=== PATIENT | male | born 1985 | race Caucasian/White ===

== ENCOUNTER 2023-11-20 08:34 | Outpatient (OUT) | payer OTHER, SELFPAY ==
[2023-11-20 09:01] LABS: Basophils Absolute Auto 0.1 10^3/uL (0.0-0.1); Eosinophils Absolute Auto 0.1 10^3/uL (0.0-0.7); Hematocrit 46.7 % (42.0-54.0); Hemoglobin 15.4 g/dL (14.0-18.0); Immature Granulocytes Abs Auto 0.01 10^3/uL (0.00-0.03); Immature Granulocytes Pct Auto 0.2 % (0.0-0.5); Lymphocytes Absolute Auto 1.7 10^3/uL (1.2-3.8); Lymphocytes Percent Auto 32.9 % (20.5-60.0); Mean Corpuscular Hemoglobin 28.2 pg (25.9-34.0); Mean Corpuscular Volume 85.4 fL (80.0-94.0); Mean Platelet Volume 10.4 fL (9.5-13.5); Monocytes Absolute Auto 0.6 10^3/uL (0.3-0.8); Monocytes Percent Auto 12.2 % (1.7-12.0); Neutrophils Absolute Auto 2.8 10^3/uL (1.4-6.5); Neutrophils Percent Auto 52.7 % (43.0-75.0); Platelet Count 190 10^3/uL (150-450); Red Blood Count 5.47 10^6/uL (4.70-6.10); Red Cell Distribution Width 13.5 % (11.0-15.0); White Blood Count 5.2 10^3/uL (4.0-11.0)
[2023-11-20 09:37] LABS: Bilirubin Urine NEGATIVE (NEGATIVE); Blood Urine NEGATIVE (NEGATIVE); Clarity Urine CLEAR (CLEAR); Color Urine YELLOW (YELLOW); Glucose Urine UA NEGATIVE (NEGATIVE); Ketones Urine NEGATIVE (NEGATIVE); Leukocyte Esterase Urine NEGATIVE (NEGATIVE); Nitrite Urine NEGATIVE (NEGATIVE); Protein Urine NEGATIVE (NEG/TRACE); Specific Gravity Urine 1.025 (1.005-1.025); Urobilinogen Urine 0.2 EU/dL (0.2-1.0)
[2023-11-20 10:07] LABS: Alanine Aminotransferase 33 U/L (16-63); Albumin Globulin Ratio 1.1; Albumin Level 3.9 g/dL (3.4-5.0); Alkaline Phosphatase 68 U/L (46-116); Aspartate Amino Transferase 18 U/L (15-37); BUN Creatinine Ratio 16.8; Bilirubin Total 1.4 mg/dL (0.2-1.0); Calcium 9.5 mg/dL (8.5-10.1); Carbon Dioxide 28.1 mmol/L (21.0-32.0); Chloride 101 mmol/L (98-107); Chol HDL Ratio 4.2; Cholesterol 168 mg/dL (<=200); Estimated GFR (African America >60 (>=60); Estimated GFR (Non-African Ame >60 (>=60); Globulin 3.4 g/dL; Glucose 120 mg/dL (74-106); HDL Cholesterol 40 mg/dL (40-60); LDL Cholesterol Calculated 114.2 mg/dL; Potassium 4.1 mmol/L (3.5-5.1); Sodium 140 mmol/L (136-145); Total Protein 7.3 g/dL (6.4-8.2); Triglycerides 69 mg/dL (<=150); VLDL CHOLESTEROL 13.8 mg/dL
[2023-11-20 10:29] LABS: Estimated Average Glucose 134 mg/dL; Glycohemoglobin A1C 6.3 % (4.5-6.2)
== END 2023-11-20 08:35 | disposition home or self-care (01) ==
PROVIDERS: PCP Internal Medicine; Visit Provider Internal Medicine
DX: Z00.00 Encounter for general adult medical examination without abnormal findings (principal)
CPT/HCPCS: 36415; 80053; 80061; 81003; 83036; 85025

== ENCOUNTER 2024-01-03 06:28 | Outpatient (OUT) | payer OTHER, SELFPAY ==
[2024-01-03 06:43] LABS: Bilirubin Urine NEGATIVE (NEGATIVE); Blood Urine NEGATIVE (NEGATIVE); Clarity Urine CLEAR (CLEAR); Color Urine YELLOW (YELLOW); Glucose Urine UA NEGATIVE (NEGATIVE); Ketones Urine NEGATIVE (NEGATIVE); Leukocyte Esterase Urine NEGATIVE (NEGATIVE); Nitrite Urine NEGATIVE (NEGATIVE); Protein Urine NEGATIVE (NEG/TRACE); Specific Gravity Urine 1.025 (1.005-1.025)
[2024-01-03 08:17] LABS: Bacteria Urine NONE SEEN #/HPF (NONE SEEN); Cast Seen? NONE SEEN #/LPF (NONE SEEN); Crystals Seen? None Seen #/HPF (None Seen); Mucus Urine NONE SEEN (NONE SEEN); RBC Urine NONE SEEN #/HPF (0-2); Squamous Epithelial Cell Urine NONE SEEN #/LPF (NONE/RARE); Urine Culture Indicated ALREADY ORDERED; WBC Urine NONE SEEN #/HPF (NONE SEEN)
== END 2024-01-03 06:29 | disposition home or self-care (01) ==
LOC: LAB 06:29
PROVIDERS: PCP Internal Medicine; Visit Provider Internal Medicine
DX: N41.0 Acute prostatitis (principal)
CPT/HCPCS: 81001; 87086

== ENCOUNTER 2024-01-13 09:09 | Outpatient (OUT) | payer OTHER, SELFPAY ==
--- NOTE | 2024-01-13 09:11 | US_ITS ---
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 TECHNIQUE: Real-time ultrasound imaging of the kidneys and bladder. Findings: The right and left kidneys measure 12.1 and 11.9 cm. There is good corticomedullary differentiation bilaterally. No renal stones. Mild left pelviectasis. No focal mass or perinephric fluid collection. The bladder is unremarkable. Prevoid volume of 279 mL. The prostate measures 5.7 x 3.2 x 4.5 cm. US/US renal BI IMPRESSION: 1. Mild left pelviectasis may relate to normal variant, obstruction or reflux. Electronically authenticated by: MARYBEL BUENO Date: 01/13/2024 13:50
--- OUTSIDE RECORDS SUMMARY | 2024-01-13 09:19 | XMS_ITS | CCD ---
Author Organization [facility] Care Team Providers Care Selvage Machine Operator Name Role Phone HARMAN, DR GOINS Attending Unavailable HARMAN, DR GOINS Consulting Unavailable HARMAN, DR GOINS Primary Care Unavailable HARMAN, DR GOINS Admitting Unavailable Keaton Hammer Unavailable Allergies Allergy Classification Reported Allergen(s) Allergy Type Date of Onset Reaction(s) Facility (1 source) patient allergy list reviewed by nurse or physicia Propensity to adverse reactions Comment:Done [facility] Other Medications Current Medications Medication Drug Class(es) Dates Sig (Normalized) Sig (Original) flecainide acetate 100 mg oral tablet (5 sources) Antiarrhythmic Start: 11-11-2023 take 50 mg by mouth every twelve hours Flecainide Active 50 MG PO Every 12 hours November 11, 2023 12:00am take 0.5 tablet by m outh every twelve hours Flecainide Acetate 100 MG 0.5 tablet Ora lly every 12 hrs Active itraconazole 100 mg oral capsule (4 sources) Azole Antifungal Start: 11-11-2023 take 200 mg by mouth once daily Itraconazole Active 200 MG PO Daily November 11, 2023 12:00am Start: 03-21-2023 take 2 capsules by m outh every twenty-four hours Itraconazole 100 MG 2 capsules after meals Orally Once a day for 7 days Mar, Active ketoconazole 20 mg/ml medicated shampoo (5 sources) Azole Antifungal Start: 11-11-2023 Ketoconazole Active 1 APPLIC TOPICAL EVERY 2 WEEKS November 11, 2023 12:00am Ketoconazole 2 % as directed Externally twice weekly for 28 days Active Ketoconazole 2 % as directed Externally Active omeprazole 20 mg delayed release oral capsule (5 sources) Proton Pump Inhibitor Start: 11-11-2023 take 20 mg by mouth once daily Omeprazole Active 20 MG PO Daily November 11, 2023 12:00am take 1 capsule by mouth once onur ly Omeprazole 20 MG 1 capsule 30 minutes before morning meal Orally Once a day Active Semaglutide (1 source) Start: 12-11-2023 Semaglutide (O zempic) 0.25 mg or 0.5 mg (2 mg/3 mL) pen injector Active 0.25 MG SUBCUT every week 3 December 11, 2023 12:00am for 4 weeks triamcinolone acetonide 1 mg/ml topical cream (5 sources) Corticosteroid Start: 11-11-2023 Triamcinolone Acetonide Active 1 APPLIC TOPICAL Twice daily November 11, 2023 12:00am Start: 11-06-2022 Triamcinolone Acetonide 0.1 % 1 application Externally twice daily as needed for rash for 10 days Oct, Active Completed/Discontinued Medications Medication Drug Class(es) Dates Sig (Normalized) Sig (Original) doxycycline monohydrate 100 mg oral capsule (1 source) Tetracycline-class Drug Start: 12-02-2023 End: 12-11-2023 take 100 mg by mouth every twelve hours Doxycycline Monohydrate Discontinued 100 MG PO Every 12 hours 20 December 02, 2023 12:00am December 11, 2023 8:35am sulfamethoxazole 800 mg / trimethoprim 160 mg oral tablet (6 sources) Dihydrofolate Reductase Inhibitor Antibacterial, Sulfonamide Antimicrobial Start: 12-11-2023 End: 12-31-2023 take 1 tablet by mouth twice daily Sulfamethoxazole- Trimethoprim Discontinued 1 TAB PO Twice daily 56 December 11, 2023 12:00am December 31, 2023 11:03am Start: 11-12-2023 End: 12-02-2023 take 1 tablet by mouth twice daily Sulfamethoxazole-Trimethoprim Discontinu ed 1 TAB PO Twice daily 14 7 November 19, 2023 1:16pm December 02, 2023 1:32pm Problems Active Problems Problem Classification Problem Date Documented Da te Episodic/Chronic Acute bronchitis (1 source) Acute bronchitis; Translations: [Acute bronchitis due to other specified organisms] Episodic Allergic reactions (1 source) Irritant contact dermatitis due to detergents Episodic Anxiety disorders (9 sources) Generalized anxiety disorder; Translations: [Generalized anxiety disorder] Onset: 02-03-2018 11-11-2023 Chronic Cardiac dysrhythmias (9 sources) Paroxysmal atrial fibrillation; Translations: [Paroxysmal atrial fibrillation] Onset: 04-04-2014 11-11-2023 Chronic Diabetes mellitus without complication (11 sources) Impaired fasting glycemia; Translations: [Impaired fasting glucose] Onset: 12-09-2017 11-11-2023 Episodic Inflammatory conditions of male genital organs (5 sources) Acute prostatitis; Translations: [Acute prostatitis] 12-02-2023 Episodic Mycoses (8 sources) Pityriasis versicolor; Translations: [Pityriasis versicolor] Onset: 03-27-2016 Episodic Other gastrointestinal disorders (6 sources) Irritable bowel syndrome; Translations: [Irritable bowel syndrome without diarrhea] 11-11-2023 Chronic Other nutritional; endocrine; and metabolic disorders (3 sources) Morbid obesity; Translations: [Morbid (severe) obesity due to excess calories] Chronic Other nutritional; endocrine; and metabolic disorders (1 source) Body mass index 30+ - obesity; Translations: [Body mass index 36.0-36.9, adult] Onset: 11-24-2015 Chronic Other nutritional; endocrine; and metabolic disorders (1 source) Obese class II; Translations: [Body mass index (BMI) 35.0-35.9, adult] Onset: 10-27-2014 Chronic Other nutritional; endocrine; and metabolic disorders (2 sources) Obese class I; Translations: [Body mass index 34.0-34.9, adult] Onset: 10-27-2014 Chronic Other nutritional; endocrine; and metabolic disorders (1 source) Simple obesity ; Translations: [Other obesity due to excess calories] Onset: 10-27-2014 Chronic Other nutritional; endocrine; and metabolic disorders (4 sources) Obesity; Translations: [Obesity, unspecified] 11-12-2023 Chronic Other nutritional; endocrine; and metabolic disorders (3 sources) Obesity caused by energy imbalance; Translations: [Morbid (severe) obesity due to excess calories] 11-11-2023 Chronic Other nutritional; endocrine; and metabolic disorders (5 sources) Obesity, unspecified; Translations: [Obesity, unspecified] 11-12-2023 Chronic Other upper respiratory disease (4 sources) Allergic rhinitis; Translations: [Allergic rhinitis, unspecified] Onset: 01-10-2015 11-11-2023 Chronic Other upper respiratory infections (3 sources) Acute pharyngitis; Translations: [Acute pharyngitis due to other specified organisms] Onset: 01-10-2015 Episodic Unclassified (1 source) Vaccine product containing only acellular Bordetella pertussis and Clostridium tetani and Corynebacterium diphtheriae antigens (medicinal product); Translations: [Sgavarzdew-vwaymmw-r ertussis, combined [DTP] [DtaP]] Onset: 02-22-2014 Past or Other Problems Problem Classification Problem Date Documented Da te Episodic/Chronic Bacterial infection; unspecified site (1 source) Bacterial infectious disease; Translations: [Bacterial infection, unspecified, in conditions classified elsewhere and of unspecified site] Onset: 11-24-2015 Episodic Conditions associated with dizziness or vertigo (1 source) Dizziness and giddiness; Translations: [Dizziness and giddiness] Onset: 04-04-2014 Episodic Esophageal disorders (2 sources) Esophageal disorders; Translations: [Gastro-esophageal reflux disease with esophagitis, without bleeding] Malaise and fatigue (1 source) Malaise and fatigue; Translations: [Other malaise and fatigue] Onset: 10-27-2014 Episodic Nausea and vomiting (1 source) Nausea; Translations: [Nausea] Onset: 04-04-2014 Episodic Other connective tissue disease (1 source) Nontraumatic rupture of rotator cuff of left shoulder; Translations: [Unspecified rotator cuff tear or rupture of left shoulder, not specified as traumatic] Onset: 09-20-2013 Episodic Other lower respiratory disease (1 source) Dyspnea; Translations: [Dyspnea, unspecified] Onset: 04-04-2014 Episodic Spondylosis; intervertebral disc disorders; other back problems (4 sources) Nerve root disorder; Translations: [Radiculopathy, site unspecified] Onset: 09-20-2013 11-11-2023 Episodic Sprains and strains (1 source) Neck sprain; Translations: [Neck sprain and strain] Onset: 09-20-2013 Episodic Unclassified (1 source) Exposure to acute respiratory syndrome coronavirus 2; Translations: [Contact with and (suspected) exposure to COVID-19] Resolved: 10-28-2021 Urinary tract infections (1 source) Urethritis; Translations: [Other urethritis] Onset: 11-24-2015 Episodic Results Test Name Value Interpretation Reference Range Facility Automated urine specific gra vity by refractometryon 11-20-2023 Specific gravity Refractometry automated (U) [Rel density] 1.025 1.005-1.025 [facility] Basophils Auto (Bld) [#/Vol] on 11-20-2023 Basophils (Bld) [#/Vol] 0.1 10 3/uL 0.0-0.1 [facility] Basophils/100 WBC Auto (Bld) on 11-20-2023 Basophils/100 WBC (Bld) 1.0 % 0.2-2.0 [facility] Bilirubin Auto test strip (U ) [Mass/Vol]on 11-20-2023 Bilirubin (U) [Mass/Vol] Negative NEGATIVE [facility] Cholesterol in LDL Calc [Mas s/Vol]on 11-20-2023 Cholesterol in LDL [Mass/Vol] 114.2 mg/dL [facility] Comment on above: <100 mg/dl [id number] 0-129 mg/dl NEAR OR ABOVE [id number] mg/dl BORDERLINE [id number] mg/dl HIGH>190 mg/dl VERY HIGH Cholesterol in VLDL Calc [Ma ss/Vol]on 11-20-2023 Cholesterol in VLDL [Mass/Vol] 13.8 mg/dL [facility] Color Auto (U)on 11-20-2023 Color (U) YELLOW YELLOW [facility] Eosinophils/100 WBC Auto (Bl d)on 11-20-2023 Eosinophils/100 WBC (Bld) 1.0 % 0.9-7.0 [facility] Erythrocyte distribution wid th Auto (RBC) [Ratio]on 11-20-2023 Erythrocyte distribution width (RBC) [Ratio] 13.5 % 11.0-15.0 [facility] Estimated glomerular filtrat ion rate (GFR) non- Americanon 11-20-2023 GFR/1.73 sq M.predicted among non-blacks MDRD (S/P/Bld) [Vol rate/Area] mL/min/{1.73_m2} >=60 [facility] Globulin Calc (S) [Mass/Vol] on 11-20-2023 Globulin (S) [Mass/Vol] 3.4 g/dL [facility] Glucose mean value [Mass/vol ume] in Blood Estimated from glycated hemoglobinon 11-20-2023 Average glucose Estimated from glycated hemoglobin (Bld) [Mass/Vol] 134 mg/dL [facility] Hematocrit Auto (Bld) [Volum e fraction]on 11-20-2023 Hematocrit (Bld) [Volume fraction] 46.7 % 42.0-54.0 [facility] Hemoglobin [Mass/volume] in Bloodon 11-20-2023 Hemoglobin (Bld) [Mass/Vol] 15.4 g/dL 14.0-18.0 [facility] Ketones Auto test strip (U) [Mass/Vol]on 11-20-2023 Ketones (U) [Mass/Vol] Negative NEGATIVE [facility] - Chemistry and C hemistry - challengeon 11-20-2023 Albumin [Mass/Vol] 3.9 g/dL 3.4-5.0 [facility] ALP [Catalytic activity/Vol] 68 U/L 46-116 [facility] ALT [Catalytic activity/Vol] 33 U/L 16-63 [facility] AST [Catalytic activity/Vol] 18 U/L 15-37 [facility] Bilirubin [Mass/Vol] 1.4 mg/dL 0.2-1.0 [facility] Calcium [Mass/Vol] 9.5 mg/dL 8.5-10.1 [facility] Chloride [Moles/Vol] 101 mmol/L 98-107 [facility] Cholesterol [Mass/Vol] 168 mg/dL <=200 [facility] Cholesterol in HDL [Mass/Vol] 40 mg/dL 40-60 [facility] Comment on above: > or =60 mg/dl - LOW CARDIOVASCULAR RISK<40 mg/dl - HIGH CARDIOVASCULAR RISK CO2 [Moles/Vol] 28.1 mmol/L 21.0-32.0 [facility] Creatinine [Mass/Vol] 1.13 mg/dL 0.70-1.30 [facility] GFR/1.73 sq M.predicted MDRD (S/P/Bld) [Vol rate/Area] mL/min/{1.73_m2} >=60 [facility] Glucose [Mass/Vol] 120 mg/dL 74-106 [facility] Potassium [Moles/Vol] 4.1 mmol/L 3.5-5.1 [facility] Protein [Mass/Vol] 7.3 g/dL 6.4-8.2 [facility] Sodium [Moles/Vol] 140 mmol/L 136-145 [facility] Triglyceride [Mass/Vol] 69 mg/dL <=150 [facility] Urea nitrogen [Mass/Vol] 19.0 mg/dL 7.0-18.0 [facility] Urea nitrogen/Creatinine [Mass ratio] 16.8 mg/mg [facility] - Hematology and Cell countson 11-20-2023 HbA1c (Bld) [Mass fraction] 6.3 % 4.5-6.2 [facility] Comment on above: ADA RECOMMENDED LIMI T 4.0 - 6.0ADA THERAPEUTIC TARGET < 7.0ACTION SUGGESTED> 7.0 Immature granulocytes/100 WBC (Bld) 0.2 % 0.0-0.5 [facility] Leukocytes [#/volume] correc alia for nucleated erythrocytes in Blood by Automated counon 11-20-2023 WBC corrected for nucl RBC Auto (Bld) [#/Vol] 5.2 10 3/uL 4.0-11.0 [facility] Lymphocytes Auto (Bld) [#/Vo l]on 11-20-2023 Lymphocytes (Bld) [#/Vol] 1.7 10 3/uL 1.2-3.8 [facility] Lymphocytes/100 WBC Auto (Bl d)on 11-20-2023 Lymphocytes/100 WBC (Bld) 32.9 % 20.5-60.0 [facility] MCH Auto (RBC) [Entitic mass ]on 11-20-2023 MCH (RBC) [Entitic mass] 28.2 pg 25.9-34.0 [facility] MCHC Auto (RBC) [Mass/Vol]on 11-20-2023 MCHC (RBC) [Mass/Vol] 33.0 g/dL 29.9-35.2 [facility] MCV Auto (RBC) [Entitic vol] on 11-20-2023 MCV (RBC) [Entitic vol] 85.4 fL 80.0-94.0 [facility] Monocytes Auto (Bld) [#/Vol] on 11-20-2023 Monocytes (Bld) [#/Vol] 0.6 10 3/uL 0.3-0.8 [facility] Monocytes/100 WBC Auto (Bld) on 11-20-2023 Monocytes/100 WBC (Bld) 12.2 % 1.7-12.0 [facility] Neutrophils Auto (Bld) [#/Vo l]on 11-20-2023 Neutrophils (Bld) [#/Vol] 2.8 10 3/uL 1.4-6.5 [facility] Neutrophils/100 WBC Auto (Bl d)on 11-20-2023 Neutrophils/100 WBC (Bld) 52.7 % 43.0-75.0 [facility] No Panel Informationon 11-19 Eosinophils # (Auto) 0.1 10 3/uL 0.0-0.7 [facility] Immature Granulocyte # (Auto) 0.01 10 3/uL 0.00-0.03 [facility] Platelet mean volume Auto (B ld) [Entitic vol]on 11-20-2023 Platelet mean volume (Bld) [Entitic vol] 10.4 fL 9.5-13.5 [facility] Platelets Auto (Bld) [#/Vol] on 11-20-2023 Platelets (Bld) [#/Vol] 190 10 3/uL 150-450 [facility] Protein Auto test strip (U) [Mass/Vol]on 11-20-2023 Protein (U) [Mass/Vol] Negative NEG/TRACE [facility] RBC Auto (Bld) [#/Vol]on RBC (Bld) [#/Vol] 5.47 10 6/uL 4.70-6.10 [facility] Serum or plasma albumin/glob ulin mass ratioon 11-20-2023 Albumin/Globulin [Mass ratio] 1.1 {ratio} [facility] Serum or plasma anion gap de terminationon 11-20-2023 Anion gap [Moles/Vol] 15.0 mmol[facility] Serum or plasma total choles terol/high density lipoprotein (HDL) cholesterol mass wilfred 11-20-2023 Cholesterol.total/Cho lesterol in HDL [Mass ratio] 4.2 {ratio} [facility] Comment on above: 3.3 - 4.4 LOW RISK4. 4 - 7.1 AVERAGE RISK7.1 - 11.0 MODERATE RISK>11.0 HIGH RISK Specific gravity Auto test s trip (U) [Rel density]on 11-20-2023 Specific gravity (U) [Rel density] CLEAR CLEAR [facility] Urine glucose measurement by test strip (mass/volume)on 11-20-2023 Glucose Test strip (U) [Mass/Vol] Negative NEGATIVE [facility] Urine hemoglobin detection b y automated test stripon 11-20-2023 Hemoglobin Auto test strip Ql (U) Negative NEGATIVE [facility] Urine nitrite detection by a utomated test stripon 11-20-2023 Nitrite Auto test strip Ql (U) Negative NEGATIVE [facility] Urobilinogen Auto test strip (U) [Mass/Vol]on 11-20-2023 Urobilinogen Qn (U) 0.2 {Lachelle'U}/dL 0.2-1.0 [facility] pH Auto test strip (U)on pH (U) 6.0 [pH] 5.0-9.0 [facility] CBC AUTO DIFFon 11-09-2021 BASO # 0.1 103/ul Normal 0.0-0.1 [facility] Comment on above: Performed By: #### C BC #### [facility] [address] [place] [address] Dr. Niko Sosa Basophils/100 WBC (Bld) 1.0 % Normal 0.2-2.0 [facility] Comment on above: Performed By: #### C BC #### [facility] [address] [address] [address] Niko Sosa EO # 0.1 103/ul Normal 0.0-0.7 [facility] Comment on above: Performed By: #### C BC #### [facility] [address] [address] [address] Niko Sosa Eosinophils/100 WBC (Bld) 1.2 % Normal 0.9-7.0 [facility] Comment on above: Performed By: #### C BC #### [facility] [address] [place] [address] Dr. Niko Sosa Erythrocyte distribution width (RBC) [Ratio] 13.9 % Normal 11.0-15.0 [facility] Comment on above: Performed By: #### C BC #### [facility] [address] [place] [address] Dr. Niko Sosa Hematocrit (Bld) [Volume fraction] 48.7 % Normal 42.0-54.0 [facility] Comment on above: Performed By: #### C BC #### [facility] [address] [place] [address] Dr. Niko Sosa Hemoglobin (Bld) [Mass/Vol] 16.0 g/dL Normal 14.0-18.0 [facility] Comment on above: Performed By: #### C BC #### [facility] [address] [place] [address] Dr. Niko Sosa IG # 0.04 10e3/ul Critically high 0.00-0.03 [facility] Comment on above: Performed By: #### C BC #### [facility] [address] [place] [address] Dr. Niko Sosa IG % 0.7 % Critically high 0.0-0.5 [facility] Comment on above: Performed By: #### C BC #### [facility] [address] [place] [address] Dr. Niko Sosa LYMPH # 2.1 103/ul Normal 1.2-3.8 [facility] Comment on above: Performed By: #### C BC #### [facility] [address] [place] [address] Dr. Niko Sosa Lymphocytes/100 WBC (Bld) 34.9 % Normal 20.5-60.0 [facility] Comment on above: Performed By: #### C BC #### [facility] [address] [place] [address] Dr. Niko Sosa MANUAL DIFF REQ NO Normal [facility] Comment on above: Performed By: #### C BC #### [facility] [address] [place] [address] Dr. Niko Sosa MCH (RBC) [Entitic mass] 27.9 pg Normal 25.9-34.0 [facility] Comment on above: Performed By: #### C BC #### [facility] [address] [place] [address] Dr. Niko Sosa MCHC (RBC) [Mass/Vol] 32.9 g/dL Normal 29.9-35.2 [facility] Comment on above: Performed By: #### C BC #### [facility] [address] [place] [address] Dr. Niko Sosa MCV (RBC) [Entitic vol] 84.8 fL Normal 80.0-94.0 [facility] Comment on above: Performed By: #### C BC #### [facility] [address] [place] [address] Dr. Niko Sosa MONO # 0.6 103/ul Normal 0.3-0.8 [facility] Comment on above: Performed By: #### C BC #### [facility] [address] [place] [address] Dr. Niko Sosa Monocytes/100 WBC (Bld) 10.1 % Normal 1.7-12.0 [facility] Comment on above: Performed By: #### C BC #### [facility] [address] [place] [address] Dr. Niko Sosa NEUT # 3.2 103/ul Normal 1.4-6.5 [facility] Comment on above: Performed By: #### C BC #### [facility] [address] [place] [address] Dr. Niko Sosa Neutrophils/100 WBC (Bld) 52.1 % Normal 43.0-75.0 [facility] Comment on above: Performed By: #### C BC #### [facility] [address] [place] [address] Dr. Niko Sosa Platelet mean volume (Bld) [Entitic vol] 9.7 fL Normal 9.5-13.5 [facility] Comment on above: Performed By: #### C BC #### [facility] [address] [address] [address] Niko Sosa PLT 230 103/ul Normal 150-450 [facility] Comment on above: Performed By: #### C BC #### [facility] [address] [address] [address] Niko Sosa RBC 5.74 106/ul Normal 4.70-6.10 [facility] Comment on above: Performed By: #### C BC #### [facility] [address] [address] [address] Niko Sosa WBC 6.0 103/ul Normal 4.0-11.0 [facility] Comment on above: Performed By: #### C BC #### [facility] [address] [place] [address] Dr. Niko Sosa LIPID PROFILEon 11-09-2021 CHOL-HDL RATIO NORM SEE BELOW Normal [facility] Comment on above: Result Comment: 3.3 - 4.4 LOW RISK 4.4 - 7.1 AVERAGE RISK 7.1 - 11.0 MODERATE RISK >11.0 HIGH RISK Performed By: #### L IPID, CMP #### [facility] [address] [place] [address] Dr. Niko Sosa Cholesterol [Mass/Vol] 159 mg/dL Normal <=200 [facility] Comment on above: Performed By: #### L IPID, CMP #### [facility] [address] [place] [address] Dr. Niko Sosa Cholesterol in HDL [Mass/Vol] 38 mg/dL Critically low 40-60 [facility] Comment on above: Performed By: #### L IPID, CMP #### [facility] [address] [address] [address] Niko Sosa Cholesterol in LDL [Mass/Vol] 109.2 mg/dL Normal [facility] Comment on above: Performed By: #### L IPID, CMP #### [facility] [address] [place] [address] Dr. Niko Sosa Cholesterol.total/Cho lesterol in HDL [Mass ratio] 4.2 {ratio} Normal [facility] Comment on above: Performed By: #### L IPID, CMP #### [facility] [address] [place] [address] Dr. Niko Sosa HDL NORMAL > or = 60 mg/dl - LOW CARDIOVASCULAR RISK <40 mg/dl - HIGH CARDIOVASCULAR RISK Normal [facility] Comment on above: Performed By: #### L IPID, CMP #### [facility] [address] [address] [address] Niko Sosa LDL CALC NORMAL SEE BELOW Normal [facility] Comment on above: Result Comment: <100 mg/dl OPTIMAL 100 - 129 mg/dl NEAR OR ABOVE OPTIMAL 130 - 159 mg/dl BORDERLINE HIGH 160 - 189 mg/dl HIGH >190 mg/dl VERY HIGH Performed By: #### L IPID, CMP #### [facility] [address] [place] [address] Dr. Niko Sosa Triglyceride [Mass/Vol] 59 mg/dL Normal <=150 [facility] Comment on above: Performed By: #### L IPID, CMP #### [facility] [address] [address] [address] Niko Sosa VLDL CALC 11.8 mg/dL Normal [facility] Comment on above: Performed By: #### L IPID, CMP #### [facility] [address] [place] [address] Dr. Niko Sosa PROF 14(COMP METB)on 022 Albumin [Mass/Vol] 3.8 g/dL Normal 3.4-5.0 [facility] Comment on above: Performed By: #### L IPID, CMP #### [facility] [address] [place] [address] Dr. Niko Sosa Albumin/Globulin [Mass ratio] 1.1 {ratio} Normal [facility] Comment on above: Performed By: #### L IPID, CMP #### [facility] [address] [address] [address] Niko Sosa ALP [Catalytic activity/Vol] 70 U/L Normal 46-116 [facility] Comment on above: Performed By: #### L IPID, CMP #### [facility] [address] [address] [address] Niko Sosa ALT [Catalytic activity/Vol] 54 U/L Normal 16-63 [facility] Comment on above: Performed By: #### L IPID, CMP #### [facility] [address] [address] [address] Niko Sosa Anion gap [Moles/Vol] 9.0 mmol/L Normal [facility] Comment on above: Performed By: #### L IPID, CMP #### [facility] [address] [address] [address] Niko Sosa AST [Catalytic activity/Vol] 20 U/L Normal 15-37 [facility] Comment on above: Performed By: #### L IPID, CMP #### [facility] [address] [place] [address] Dr. Niko Sosa Bilirubin [Mass/Vol] 0.9 mg/dL Normal 0.2-1.3 [facility] Comment on above: Performed By: #### L IPID, CMP #### [facility] [address] [place] [address] Dr. Niko Sosa Calcium [Mass/Vol] 8.8 mg/dL Normal 8.5-10.1 [facility] Comment on above: Performed By: #### L IPID, CMP #### [facility] [address] [place] [address] Dr. Niko Sosa Chloride [Moles/Vol] 104 mmol/L Normal 98-107 [facility] Comment on above: Performed By: #### L IPID, CMP #### [facility] [address] [address] [address] Niko Sosa CO2 [Moles/Vol] 31.6 mmol/L Critically high 22.0-30.0 [facility] Comment on above: Performed By: #### L IPID, CMP #### [facility] [address] [place] [address] Dr. Niko Sosa Creatinine [Mass/Vol] 1.01 mg/dL Normal 0.66-1.25 [facility] Comment on above: Performed By: #### L IPID, CMP #### [facility] [address] [address] [address] Niko Sosa EGFR-AF FILIPINO >60 Normal >=60 [facility] Comment on above: Performed By: #### L IPID, CMP #### [facility] [address] [address] [address] Niko Sosa EGFR-NON AF FILIPINO >60 Normal >=60 [facility] Comment on above: Performed By: #### L IPID, CMP #### [facility] [address] [address] [address] Niko Sosa Globulin (S) [Mass/Vol] 3.5 g/dL Normal [facility] Comment on above: Performed By: #### L IPID, CMP #### [facility] [address] [address] [address] Niko Sosa Glucose [Mass/Vol] 134 mg/dL Critically high 74-106 [facility] Comment on above: Performed By: #### L IPID, CMP #### [facility] [address] [address] [address] Niko Sosa Potassium [Moles/Vol] 4.6 mmol/L Normal 3.4-5.0 [facility] Comment on above: Performed By: #### L IPID, CMP #### [facility] [address] [address] [address] Niko Sosa Protein [Mass/Vol] 7.3 g/dL Normal 6.1-8.2 [facility] Comment on above: Performed By: #### L IPID, CMP #### [facility] [address] [address] [address] Niko Sosa Sodium [Moles/Vol] 140 mmol/L Normal 137-145 [facility] Comment on above: Performed By: #### L IPID, CMP #### [facility] [address] [address] [address] Niko Sosa Urea nitrogen [Mass/Vol] 22.0 mg/dL Critically high 7.0-18.0 [facility] Comment on above: Performed By: #### L IPID, CMP #### [facility] [address] [address] [address] Niko Sosa Urea nitrogen/Creatinine [Mass ratio] 21.8 mg/mg Normal [facility] Comment on above: Performed By: #### L IPID, CMP #### [facility] [address] [address] [address] Niko Sosa Vital Signs Date Time Vital Sign Value Performing Clinician Facility 12-31-2023 11:03-0400 Body height 182.88 cm [facility] 12-31-2023 11:03-0400 Body mass index (BMI) [Ratio] 34.3 kg/m2 [facility] 12-31-2023 11:03-0400 Body weight 114.92 kg [facility] 12-31-2023 11:03-0400 Diastolic blood pressure 75 mm[Hg] [facility] 12-31-2023 11:03-0400 Heart rate 71 /min [facility] 12-31-2023 11:03-0400 Respiratory rate 12 /min [facility] 12-31-2023 11:03-0400 Systolic blood pressure 110 mm[Hg] [facility] 12-11-2023 08:41-0400 Body height 182.88 cm [facility] 12-11-2023 08:41-0400 Body mass index (BMI) [Ratio] 35.1 kg/m2 [facility] 12-11-2023 08:41-0400 Body weight 117.53 kg [facility] 12-11-2023 08:41-0400 Diastolic blood pressure 74 mm[Hg] [facility] 12-11-2023 08:41-0400 Heart rate 65 /min [facility] 12-11-2023 08:41-0400 Respiratory rate 12 /min [facility] 12-11-2023 08:41-0400 Systolic blood pressure 113 mm[Hg] [facility] 11-12-2023 11:20-0400 Body height 182.88 cm [facility] 11-12-2023 11:20-0400 Body mass index (BMI) [Ratio] 35 kg/m2 [facility] 11-12-2023 11:20-0400 Body weight 117.19 kg [facility] 11-12-2023 11:20-0400 Diastolic blood pressure 79 mm[Hg] [facility] 11-12-2023 11:20-0400 Heart rate 73 /min [facility] 11-12-2023 11:20-0400 Respiratory rate 12 /min [facility] 11-12-2023 11:20-0400 Systolic blood pressure 113 mm[Hg] [facility] 11-06-2022 16:30-0400 Body height 182.88 cm [facility] [employer] [facility] Other 11-06-2022 16:30-0400 Body mass index (BMI) [Ratio] 36.4 kg/m2 [facility] [employer] [facility] Other 11-06-2022 16:30-0400 Body weight 121.75 kg Keaton Ball Other [facility] Other 11-06-2022 16:30-0400 Diastolic blood pressure 70 mm[Hg] [facility] [employer] [facility] Other 11-06-2022 16:30-0400 Respiratory rate 12 /min [facility] [employer] [facility] [employer] Other 11-06-2022 16:30-0400 Systolic blood pressure 112 mm[Hg] [facility] [employer] Other [employer] Other Encounters Encounter Date Encounter Type Care Provider Facility Start: 12-31-2023 End: 12-31-2023 ambulatory [facility] Work Phone: Start: 12-31-2023 End: 12-31-2023 Patient encounter procedure [facility] Work Phone: Start: 12-11-2023 End: 12-11-2023 Patient encounter procedure [facility] Work Phone: Start: 12-02-2023 End: 12-02-2023 ambulatory [facility] Work Phone: Start: 12-02-2023 End: 12-02-2023 Patient encounter procedure [facility] Work Phone: Start: 11-20-2023 Non-patient / Non-visit [facility] Work Phone: Start: 11-12-2023 End: 11-12-2023 ambulatory [facility] Work Phone: Start: 11-12-2023 End: 11-12-2023 Encounter for general adult medical examination without abnormal findings [facility] Start: 11-12-2023 End: 11-12-2023 Patient encounter procedure [facility] Work Phone: Start: 03-21-2023 End: 03-21-2023 ambulatory Keaton Hammer Other [facility] Other Start: 03-21-2023 Telephone encounter Keaton Hammer [place] [facility] Start: 11-06-2022 End: 11-06-2022 ambulatory Keaton Hammer Other [facility] Other Start: 11-06-2022 Office outpatient vi sit 15 minutes Keaton Hammer [facility] Start: 11-13-2021 Encounter for genera l adult medical examination without abnormal findings DR KEATON HAMMER [facility] Start: 11-09-2021 End: 11-10-[address] KEATON HAMMER Facility:[facility] Start: 11-09-2021 End: 11-10-2021 Encounter for general adult medical examination without abnormal findings DR KEATON HAMMER Facility:[facility] Start: 11-06-2021 Adult health examination Keaton Hammer Other [facility] Other Procedures Date Procedure Procedure Detail Performing Clinician Depression screening Jackson Hammer Other Plan of Treatment Date Care Activity Detail Author Bacteria identified in Urine by Culture [facility] Comprehensive metabo lic 2000 panel - Serum or Plasma [facility] Immunizations Immunization Date Immunization Notes Care Provider Susan rhodes 02-22-2014 diphtheria, tetanus toxoids and acellular pertussis vaccine, unspecified formulation Keaton Hammer Other [facility] Payers Date Payer Category Payer Unknown [id number] 1959 Unknown [id number] Unknown [id number] Social History Date Type Detail Facility Sex Assigned At [facility]ly [facility] [employer] Other Start: 1985 Sex Assigned At Male [facility] Evaluation note 03-21-2023 Note Date & Type Note Facility 03-21-2023 Evaluation note Encounter Date Diagnosis Assessment Notes Mar, Tinea versicolor (ICD-10 - B36.0) [facility] [employer] Other Evaluation note 11-06-2022 Note Date & Type Note Facility 11-06-2022 Evaluation note Encounter Date Diagnosis Assessment Notes Oct, Irritant contact dermatitis due to detergent (ICD-10 - L24.0) Avoid harsh chemicals or soaps. Cool compresses [facility] [employer] Other Chief complaint+Reason for visit Narrative Note Date & Type Note Facility Chief complaint+Reason for visit Narrative Reason for Visit ELIF (generalized anxiety disorder) IFG (impaired fasting glucose) Obesity Paroxysmal atrial fibrillation Wellness examination Acute prostatitis IFG (impaired fasting glucose) Obesity Prostatitis Acute prostatitis IFG (impaired fasting glucose) Obesity Prostatitis [facility] Work Phone: Evaluation note Note Date & Type Note Facility Evaluation note Diagnosis Onset Date ELIF (generalized anxiety disorder) acute IFG (impaired fasting glucose) acute Obesity acute Paroxysmal atrial fibrillation acute Wellness examination noneact mk [facility] Work Phone: Evaluation note Note Date & Type Note Facility Evaluation note Diagnosis Onset Date ELIF (generalized anxiety disorder) acute IFG (impaired fasting glucose) acute Obesity acute Paroxysmal atrial fibrillation acute Wellness examination noneact mk Acute prostatitis acute IFG (impaired fasting glucose) acute Obesity acute Prostatitis noneactive Acute prostatitis acute IFG (impaired fasting glucose) acute Obesity acute Prostatitis noneactive [facility] Work Phone: History general Narrative - Reported Note Date & Type Note Facility History general Narrative - Reported Type Medical History ELIF (generalized anxiety disorde r) Medical History Gastro-esophageal re flux disease with esophagitis, without bleeding Medical History IFG (impaired fasting glucose) Medical History Paroxysmal atrial fibrillation Medical History Tinea versicolor Medical History IBS (irritable bowel syndrome) Medical History Morbid obesity [employer] Other History general Narrative - Reported Note Date & Type Note Facility History general Narrative - Reported Type Medical History ELIF (generalized anxiety disorde r) Medical History Gastro-esophageal re flux disease with esophagitis, without bleeding Medical History IFG (impaired fasting glucose) Medical History Paroxysmal atrial fibrillation Medical History Tinea versicolor Medical History IBS (irritable bowel syndrome) Medical History Morbid obesity Surgical History Problem Title : Non- Contributory Past Surgical History, Problem Status : Active, Surgical History Problem Title : past surgical history reviewed, Problem Description : past surgical history reviewed, Problem Comment : reviewed - no changes required, Problem Status : Inactive, Surgical History Problem Title : past surgical history reviewed, Problem Description : past surgical history reviewed, Problem Comment : reviewed - no changes required, Problem Status : Resolved, [employer] Other Summary Purpose Family History Relationship Condition Age at Onset Recorded Date/T kylee father Diabetes mellitus Unknown Not Specified Diabetes mellitus Unknown Advance Directives Advance Directive Response Recorded Date/ Time Advance Directives No November 11 11:13am Chief Complaint and Reason for Visit Chief Complaint Wellness Reason for Visit ELIF (generalized anx iety disorder) IFG (impaired fasting glucose) Obesity Paroxysmal atrial fibrillation Wellness examination Chief Complaint Wellness continued congestion Reason for Visit ELIF (generalized anx iety disorder) IFG (impaired fasting glucose) Obesity Paroxysmal atrial fibrillation Wellness examination Additional Source Comments (unrecognized sect ion and content) No Status Records Found INFORMATION SOURCE (unrecogn ized section and content) DATE CREATED AUTHOR 11/15/2021 [facility] REASON FOR VISIT (unrecogniz ed section and content) Param Information Care Teams (unrecognized sec tion and content) Team Status: Active Member Role Status Dates Keaton Hammer , Primary Care Provider Active Team Status: Inactive Member Role Status Dates Keaton Hammer , DO Primary Care Provide r, Attending Provider Active Start: November 12, 2023 End: November 12, 2023 Team Status: Active Member Role Status Dates Keatno Hammer , Primary Care Provide r, Attending Provider Active Start: November 20, 2023 Team Status: Inactive Member Role Status Dates Keaton Hammer , Primary Care Provider Active Start: December 02, 2023 End: December 02, 2023 Jenelle Mcdaniel APRN VERIFICATION ENGINEER-C Attending Provider Act mk Start: December 02, 2023 End: December 02, 2023 Team Status: Inactive Member Role Status Dates Keaton Hammer , Primary Care Provide r, Attending Provider Active Start: December 11, 2023 End: December 11, 2023 Team Status: Inactive Member Role Status Bianca Hammer , Primary Care Provide r, Attending Provider Active Start: December 31, 2023 End: December 31, 2023 Goals (unrecognized section and content) Goals may be documented in a n alternate section FOR RECORDS PERTAINING TO PATIENTS WHO ARE OR HAVE BEEN ENROLLED IN A CHEMICAL DEPENDENCY/SUBSTANCEABUSE PROGRAM, SOME INFORMATION MAY BE OMITTED. This clinical summary was aggregated from multiple sources. Caution should be exercised in using it in the provision of clinical care. This summary normalizes information from multiple sources, and as a consequence, information in this document may materially change the coding, format and clinical context of patient data. In addition, data may be omitted in some cases. CLINICAL DECISIONS SHOULD BE BASED ON THE PRIMARY CLINICAL RECORDS. [employer] [facility]. provides no warranty or guarantee of the accuracy or completeness of information in this document.
== END 2024-01-13 09:10 | disposition home or self-care (01) ==
LOC: US 09:09
PROVIDERS: PCP Internal Medicine; Visit Provider Internal Medicine
DX: N41.1 Chronic prostatitis (principal)
CPT/HCPCS: 76775

== ENCOUNTER 2025-04-13 11:53 | Outpatient (OUT) | payer OTHER, SELFPAY ==
[2025-04-13 12:34] LABS: Hematocrit 47.3 % (42.0-54.0); Hemoglobin 16.1 g/dL (14.0-18.0); Immature Granulocytes Abs Auto 0.01 10^3/uL (0.00-0.03); Immature Granulocytes Pct Auto 0.2 % (0.0-0.5); Lymphocytes Absolute Auto 1.2 10^3/uL (1.2-3.8); Mean Corpuscular HGB Conc 34.0 g/dL (29.9-35.2); Mean Corpuscular Hemoglobin 28.7 pg (25.9-34.0); Mean Corpuscular Volume 84.3 fL (80.0-94.0); Platelet Count 194 10^3/uL (150-450); Red Blood Count 5.61 10^6/uL (4.70-6.10); White Blood Count 4.3 10^3/uL (4.0-11.0)
[2025-04-13 15:12] LABS: Alanine Aminotransferase 55 U/L (16-63); Alkaline Phosphatase 64 U/L (46-116); Anion Gap 10.5; Aspartate Amino Transferase 21 U/L (15-37); Blood Urea Nitrogen 22.0 mg/dL (7.0-18.0); Calcium 9.6 mg/dL (8.5-10.1); Carbon Dioxide 29.1 mmol/L (21.0-32.0); Chloride 104 mmol/L (98-107); Estimated GFR (African America >60 (>=60 mL/min/1.73m^2); Estimated GFR (Non-African Ame >60 (>=60 mL/min/1.73m^2); Glucose 111 mg/dL (74-106); Potassium 4.6 mmol/L (3.5-5.1); Sodium 139 mmol/L (136-145)
[2025-04-13 15:13] LABS: Albumin Globulin Ratio 1.1; Albumin Level 4.0 g/dL (3.4-5.0); Cholesterol 182 mg/dL (<=200); Globulin 3.5 g/dL; HDL Cholesterol 40 mg/dL (40-60); Thyroid Stimulating Hormone 1.239 uIU/mL (0.358-3.740); Total Protein 7.5 g/dL (6.4-8.2); Triglycerides 56 mg/dL (<=150); VLDL CHOLESTEROL 11.2 mg/dL
--- OUTSIDE RECORDS SUMMARY | 2025-04-13 16:11 | XMS_ITS | CCD ---
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 Name Role Phone DR KEATON HAMMER Attending Unavailable HARMAN, DR GOINS Consulting Unavailable HARMAN, DR GOINS Primary Care Unavailable HARMAN, DR GOINS Admitting Keaton Elaine Unavailable KEATON HAMMER Primary Care Physician [phone] Nohelia Shaw Attending KEATON Elaine Referring Unavailable Keaton Hammer DO Primary Care Provider Keaton Hammer DO Attending Provider [phone] Allergies Allergy Classification Reported Allergen(s) Allergy Type Date of Onset Reaction(s) Facility (1 source) patient allergy list reviewed by nurse or physicia Propensity to adverse reactions 4 Comment:Done [employer] Other Medications Current Medications Medication Drug Class(es) Dates Sig (Normalized) Sig (Original) ALPRAZolam 0.25 mg oral tablet (2 sources) Benzodiazepine Start: 04-08-2025 take 1 tablet by mouth once daily atenolol 50 mg oral tablet (1 source) beta-Adrenergic Silvestre Start: 04-08-2025 take 1 tablet by mouth once daily as needed flecainide acetate 100 mg oral tablet (12 sources) Antiarrhythmic Start: 04-08-2025 Start: 04-08-2025 End: 04-08-2025 take 1 tablet by mouth once as needed Flecainide 100 mg tablet Discontinued 100 MG PO Once as needed for palpitation April 08, 2025 5:30pm April 08, 2025 6:35pm Start: 11-11-2023 End: 04-08-2025 Flecainide 100 mg tablet Discontinued 50 MG PO Every 12 hours November 11, 2023 12:00am April 08, 2025 3:08pm Start: 11-11-2023 take 50 mg by mouth every twelve hours Flecainide Active 50 MG PO Every 12 hours November 11, 2023 12:00am take 0.5 tablet by m outh every twelve hours Flecainide Acetate 100 MG 0.5 tablet Orally every 12 hrs Active ketoconazole 20 mg/ml medica alia shampoo (8 sources) Azole Antifungal Start: 11-11-2023 Ketoconazole 2 % as directed Externally twice weekly for 28 days Active Ketoconazole 2 % as directed Externally Active Omeprazole (9 sources) Proton Pump Inhibitor Start: 01-23-2024 omeprazo le Oral, Daily Start Date: 01/23/24 Status: Ordered Start: 11-11-2023 take 1 capsule by mo ut once daily take 1 capsule by mo ut once daily Omeprazole 20 MG 1 capsule 30 minutes before morning meal Orally Once a day Active triamcinolone acetonide 1 mg /ml topical cream (8 sources) Corticosteroid Start: 11-11-2023 Start: 11-06-2022 Triamcinolone Acetonide 0.1 % 1 application Externally twice daily as needed for rash for 10 days Oct, Active Completed/Discontinued Medications Medication Drug Class(es) Dates Sig (Normalized) Sig (Original) azithromycin 250 mg oral tablet (2 sources) Macrolide Antimicrobial Start: 07-22-2024 End: 04-08-2025 Azithromycin 250 mg tablet Discontinued 250 MG PO .COMPLEX 6 July 22, 2024 1:00am April 08, 2025 2:21pm 2 tabs on first day followed by 1 tab on days 2-5 doxycycline hyclate 100 mg oral capsule (7 sources) Tetracycline-class Drug Start: 03-23-2024 End: 07-22-2024 take 1 capsule by mouth twice daily Doxycycline Hyclate 100 mg capsule Discontinued 100 MG PO Twice daily 14 March 23, 2024 12:00am July 22, 2024 10:33am Start: 12-02-2023 End: 12-11-2023 take 1 capsule by mouth every twelve hours Doxycycline Monohydrate 100 mg capsule Discontinued 100 MG PO Every 12 hours 20 December 02, 2023 12:00am December 11, 2023 8:35am itraconazole 100 mg oral capsule (7 sources) Azole Antifungal Start: 11-11-2023 End: 03-23-2024 take 1 capsule by mouth once daily Itraconazole 100 mg capsule Discontinued 200 MG PO Daily November 11, 2023 12:00am March 23, 2024 11:32am Start: 11-11-2023 End: 03-23-2024 take 200 mg by mouth once daily Itraconazole Discontin ued 200 MG PO Daily November 11, 2023 12:00am March 23, 2024 11:32am Start: 03-21-2023 take 2 capsules by m outh every twenty-four hours Itraconazole 100 MG 2 capsules after meals Orally Once a day for 7 days Mar, Active Semaglutide (4 sources) Start: 12-11-2023 End: 04-08-2025 Semaglutide (Ozempic) 0.25 m g or 0.5 mg (2 mg/3 mL) pen injector Discontinued 0.25 MG SUBCUT every week 3 December 11, 2023 12:00am April 08, 2025 3:06pm for 4 weeks Start: 12-11-2023 Semaglutide (O zempic) 0.25 mg or 0.5 mg (2 mg/3 mL) pen injector Active 0.25 MG SUBCUT every week 3 December 11, 2023 12:00am for 4 weeks sulfamethoxazole 800 mg / trimethoprim 160 mg oral tablet (15 sources) Dihydrofolate Reductase Inhibitor Antibacterial, Sulfonamide Antimicrobial Start: 12-11-2023 End: 12-31-2023 take 1 tablet by mouth twice daily Sulfamethoxazole-Trimethoprim 800-160 mg tablet Discontinued 1 TAB PO Twice daily 56 December 11, 2023 12:00am December 31, 2023 11:03am Start: 11-12-2023 End: 12-02-2023 take 1 tablet by mouth twice daily Sulfamethoxazole-Trimethoprim 800-160 mg tablet Discontinued 1 TAB PO Twice daily 14 November 19, 2023 1:16pm December 02, 2023 1:32pm Problems Active Problems Problem Classification Problem Date Documented Da te Episodic/Chronic Acute bronchitis (4 sources) Acute bronchitis; Translations: [Acute bronchitis due to other specified organisms] 03-23-2024 Episodic Allergic reactions (1 source) Irritant contact dermatitis due to detergents Episodic Anxiety disorders (15 sources) Generalized anxiety disorder; Translations: [Generalized anxiety disorder] Onset: 11-11-2023 Chronic Cardiac dysrhythmias (15 sources) Paroxysmal atrial fibrillation; Translations: [Paroxysmal atrial fibrillation] Onset: 4 11-11-2023 Chronic Cardiac dysrhythmias (2 sources) Palpitations; Translations: [Palpitations] 04-08-2025 Episodic Diabetes mellitus without complication (19 sources) Impaired fasting glycemia; Translations: [Impaired fasting glucose] Onset: 8 11-11-2023 Episodic Esophageal disorders (2 sources) Gastroesophageal reflux disease; Translations: [Gastro-esophageal reflux disease without esophagitis] 04-08-2025 Chronic Genitourinary symptoms and ill-defined conditions (2 sources) Other symptoms and signs involving the genitourinary system; Translations: [Bladder pain] Onset: 4 Episodic Hyperplasia of prostate (1 source) Benign prostatic hypertrophy without outflow obstruction; Translations: [Benign prostatic hyperplasia without lower urinary tract symptoms] Onset: 4 Chronic Inflammatory conditions of male genital organs (11 sources) Acute prostatitis; Translations: [Acute prostatitis] Onset: 4 12-02-2023 Episodic Mycoses (12 sources) Pityriasis versicolor; Translations: [Pityriasis versicolor] Onset: 6 Episodic Other gastrointestinal disorders (10 sources) Irritable bowel syndrome; Translations: [Irritable bowel syndrome without diarrhea] 11-11-2023 Chronic Other nervous system disorders (1 source) 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 Other nutritional; endocrine; and metabolic disorders (3 sources) Morbid obesity; Translations: [Morbid (severe) obesity due to excess calories] Chronic Other nutritional; endocrine; and metabolic disorders (1 source) Body mass index 30+ - obesity; Translations: [Body mass index 36.0-36.9, adult] Onset: 6 Chronic Other nutritional; endocrine; and metabolic disorders (1 source) Obese class II; Translations: [Body mass index (BMI) 35.0-35.9, adult] Onset: 5 Chronic Other nutritional; endocrine; and metabolic disorders (2 sources) Obese class I; Translations: [Body mass index 34.0-34.9, adult] Onset: 5 Chronic Other nutritional; endocrine; and metabolic disorders (1 source) Simple obesity ; Translations: [Other obesity due to excess calories] Onset: 5 Chronic Other nutritional; endocrine; and metabolic disorders (9 sources) Obesity; Translations: [Obesity, unspecified] 11-12-2023 Chronic Other nutritional; endocrine; and metabolic disorders (5 sources) Obesity caused by energy imbalance; Translations: [Morbid (severe) obesity due to excess calories] 11-11-2023 Chronic Other nutritional; endocrine; and metabolic disorders (6 sources) Obesity, unspecified; Translations: [Obesity, unspecified] 11-12-2023 Chronic Other upper respiratory disease (8 sources) Allergic rhinitis; Translations: [Allergic rhinitis, unspecified] Onset: 5 11-11-2023 Chronic Other upper respiratory infections (3 sources) Acute pharyngitis; Translations: [Acute pharyngitis due to other specified organisms] Onset: 5 Episodic Unclassified (1 source) Vaccine product containing only acellular Bordetella pertussis and Clostridium tetani and Corynebacterium diphtheriae antigens (medicinal product); Translations: [Otrszhswld-zluhziy-gl rtussis, combined [DTP] [DtaP]] Onset: 4 Past or Other Problems Problem Classification Problem [...] Spondylosis; intervertebral disc disorders; other back problems (6 sources) Nerve root disorder; Translations: [Radiculopathy, site [...] Test Name Value Interpretation Reference Range Facility [facility] 01-27-2024 Forms [id number] #1.00TIFF [facility] Physician Referralon 024 Physician Referral [id number]# 1.00TIFF [facility] Physician Referral [id number]#1.00TIFF [facility] RAD - Ultrasound Reporton RAD - Ultrasound Report [id number]# 1.00TIFF [facility] Screenson 01-27-2024 Screens [id number] #1.00TIFF [facility] Screens [id number]# 1.00TIFF [facility] Ambulatory Visit Summaryon 0 01-23-2024 Ambulatory Visit Summary LEO SWAN :1985 Visit Date:01/23/2024 Ambulatory Visit Instructions Your Diagnosis Prostatitis Your Care Team Attending Physician - GAYLE Shaw APRN, Nohelia Angeles Primary Care Physician - KEATON HAMMER DO Referring Physician - KEATON HAMMER DO This Is Your Medications List Contact prescribing physician if questions or concerns omeprazole Discharge Vitals Heart Rate (Peripheral) 62 Respiratory Rate 19 Blood Pressure 106/64 Height 183 cm Height 72 in Weight 114 kg Weight 250.8 lb BMI 34.04 Medications What How Much When Instructions Unchanged omeprazole Every day Contact prescribing physician if questions or concerns Allergies No Known Allergies Problems Ongoing - Any problem that you are currently receiving treatment for. Allergic rhinitis, unspecified ELIF (generalized anxiety disorder) IBS (irritable bowel syndrome) IFG (impaired fasting glucose) Paroxysmal atrial fibrillation Pityriasis versicolor Prostatitis Radiculopathy, site unspecified Patient Survey You may receive a survey via text or e-mail asking about your office visit. Please share your experience with us by completing your survey. We appreciate your feedback and thank you for choosing us for your care. [facility] Patient Educationon 01-23-20 Patient Education Infectious Disease Prostatitis Prostatitis is swelling or inflammation of the prostate gland, also called the prostate. This gland is about 1.5 inches wide and 1 inch high, and it is involved in making semen. The prostate is located below a man's bladder, in front of the rectum. There are four types of prostatitis: ? Chronic prostatitis (CP), also called chronic pelvic pain syndrome (CPPS). This is the most common type of prostatitis. It is associated with increased muscle tone in the area between the hip bones (pelvic area), around the prostate. This type is also known as a pelvic floor disorder. ? Chronic bacterial prostatitis. This type usually results from an acute bacterial infection in the prostate gland that keeps coming back or has not been treated properly. The symptoms are less severe than those caused by acute bacterial prostatitis, which lasts a shorter time. ? Asymptomatic inflammatory prostatitis. This type does not have symptoms and does not need treatment. This is diagnosed when tests are done for other disorders of the urinary tract or reproductive tract. ? Acute bacterial prostatitis. This type starts quickly and results from an acute bacterial infection in the prostate gland. It is usually associated with a bladder infection, high fever, and chills. This is the least common type of prostatitis. What are the causes? Bacterial prostatitis is caused by an infection from bacteria. Chronic nonbacterial prostatitis may be caused by: ? Factors related to the nervous system. This system includes thebrain, spinal cord, and nerves. ? An autoimmune response. This happens when the body's disease-fighting system attacks healthy tissue in the body by mistake. ? Psychological factors. These have to do with how the mind works. The causes of the other types of prostatitis are usually not known. What are the signs or symptoms? Symptoms of this condition depend on the type of prostatitis you have. Acute bacterial prostatitis Symptoms may include: ? Pain or burning during urination. ? Frequent and sudden urges to urinate. ? Trouble starting to urinate. ? Fever. ? Chills. ? Pain in your muscles or joints, lower back, or lower abdomen. Other types of prostatitis Symptoms may include: ? Sudden urges to urinate, or urinating often. ? Trouble starting to urinate. ? Weak urine stream. ? Dribbling after urination. ? Discharge coming from the penis. ? Pain in the testicles, the penis, or the tip of the penis. ? Pain in the area in front of the rectum and below the scrotum (perineum). ? Pain when ejaculating. How is this diagnosed? This condition may be diagnosed based on: ? A physical and medical exam. ? A digital rectal exam. For this, the health care provider may use a finger to feel the prostate. ? A urine test to check for bacteria. ? A semen sample or blood tests. ? Ultrasound. ? Urodynamic tests to check how your body handles urine. ? Cystoscopy to look inside your bladder or inside the part of your body that drains urine from the bladder (urethra). How is this treated? Treatment for this condition depends on the type of prostatitis. Treatment may involve: ? Medicines to relieve pain or inflammation, or to help relax your muscles. ? Physical therapy. ? Heat therapy. ? Biofeedback. These techniques help you control certain body functions. ? Relaxation exercises. ? Antibiotic medicine, if your condition is caused by bacteria. ? Sitz baths. These warm water baths help to relax your pelvic floor muscles, which helps to relieve pressure on the prostate. Follow these instructions at home: Medicines ? Take [id number] and prescription medicines only as told by your health care provider. ? If you were prescribed an antibiotic medicine, take it as told by your health care provider. Do not stop using the antibiotic even if you start to feel better. Managing pain and swelling ? Take sitz baths as directed by your health care provider. For a sitz bath, sit in warm water that is deep enough to cover your hips and buttocks. ? If directed, apply heat to the affected area as often as told by your health care provider. Use the heat source that your health care provider recommends, such as a moist heat pack or a heating pad. ? Place a towel between your skin and the heat source. ? Leave the heat on for 20?30 minutes. ? Remove the heat if your skin turns bright red. This is especially important if you are unable to feel pain, heat, or cold. You may have a greater risk of getting burned. General instructions ? Do exercises as told by your health care provider, if you were prescribed physical therapy, biofeedback, or relaxation exercises. ? Keep all follow-up visits as told by your health care provider. This is important. Where to find more information ? [employer] [place] [employer] Diabetes and Digestive and Kidney Diseases: (more content not included)... [facility] - Chemistry and C hemistry - challengeon 01-03-2024 Bilirubin Ql (U) Negative NEGATIVE [facility] Glucose (U) [Mass/Vol] Negative NEGATIVE [facility] Ketones Ql (U) Negative NEGATIVE [facility] pH (U) 6.0 [pH] 5.0-9.0 [facility] Specific gravity (U) [Rel density] 1.025 1.005-1.025 [facility] Urobilinogen Qn (U) 1.0 {Lachelle'U}/dL 0.2-1.0 [facility] Laboratory - Specimen inform ationon 01-03-2024 Appearance (U) CLEAR CLEAR [facility] Color (U) YELLOW YELLOW [facility] Laboratory - Urinalysison Leukocyte esterase Test strip Ql (U) Negative NEGATIVE [facility] Mucus Ql (Urine sed) NONE SEEN NONE SEEN [facility] Nitrite Ql (U) Negative NEGATIVE [facility] Protein Ql (U) Negative NEG/TRACE [facility] No Panel Informationon 01-02 Urine Bacteria NONE SEEN #/HPF NONE SEEN [facility] Urine Culture Reflexed ALREADY ORDERED [facility] Urine Occult Blood Negative NEGATIVE [facility] Urine Other Casts NONE SEEN #/LPF NONE SEEN Fi relands [facility] Urine Other Crystals None Seen #/HPF None Seen [facility] Urine RBC NONE SEEN #/HPF 0-2 [facility] Urine Squamous Epithelial Cells NONE SEEN #/LPF NONE/RARE [facility] Urine WBC NONE SEEN #/HPF NONE SEEN [facility] Automated urine specific gra vity by refractometryon 11-20-2023 Specific gravity Refractometry automated (U) [Rel density] 1.025 1.005-1.025 [facility] Basophils Auto (Bld) [#/Vol] on 11-20-2023 Basophils (Bld) [#/Vol] 0.1 10 3/uL 0.0-0.1 [facility] Basophils/100 WBC Auto (Bld) on 11-20-2023 Basophils/100 WBC (Bld) 1.0 % 0.2-2.0 [facility] Bilirubin Auto test strip (U ) [Mass/Vol]on 11-20-2023 Bilirubin (U) [Mass/Vol] Negative NEGATIVE [facility] Cholesterol in LDL Calc [Mas s/Vol]on 11-20-2023 Cholesterol in LDL [Mass/Vol] 114.2 mg/dL [facility] Comment on above: <100 mg/dl [id number] 0-129 mg/dl NEAR OR ABOVE [id number] mg/dl BORDERLINE [id number] mg/dl HIGH>190 mg/dl VERY HIGH Cholesterol in VLDL Calc [Ma ss/Vol]on 11-20-2023 Cholesterol in VLDL [Mass/Vol] 13.8 mg/dL [facility] Color Auto (U)on 11-20-2023 Color (U) YELLOW YELLOW [facility] Eosinophils/100 WBC Auto (Bl d)on 11-20-2023 Eosinophils/100 WBC (Bld) 1.0 % 0.9-7.0 [facility] Erythrocyte distribution wid th Auto (RBC) [Ratio]on 11-20-2023 Erythrocyte distribution width (RBC) [Ratio] 13.5 % 11.0-15.0 [facility] Estimated glomerular filtrat ion rate (GFR) non- Americanon 11-20-2023 GFR/1.73 sq M.predicted among non-blacks MDRD (S/P/Bld) [Vol rate/Area] mL/min/{1.73_m2} >=60 [facility] Globulin Calc (S) [Mass/Vol] on 11-20-2023 Globulin (S) [Mass/Vol] 3.4 g/dL [facility] Glucose mean value [Mass/vol ume] in Blood Estimated from glycated hemoglobinon 11-20-2023 Average glucose Estimated from glycated hemoglobin (Bld) [Mass/Vol] 134 mg/dL [facility] Hematocrit Auto (Bld) [Volum e fraction]on 11-20-2023 Hematocrit (Bld) [Volume fraction] 46.7 % 42.0-54.0 [facility] Hemoglobin [Mass/volume] in Bloodon 11-20-2023 Hemoglobin (Bld) [Mass/Vol] 15.4 g/dL 14.0-18.0 [facility] Ketones Auto test strip (U) [Mass/Vol]on 11-20-2023 Ketones (U) [Mass/Vol] Negative NEGATIVE [facility] - Chemistry and C hemistry - challengeon 11-20-2023 Albumin [Mass/Vol] 3.9 g/dL 3.4-5.0 [facility] ALP [Catalytic activity/Vol] 68 U/L 46-116 [facility] ALT [Catalytic activity/Vol] 33 U/L 16-63 [facility] AST [Catalytic activity/Vol] 18 U/L 15-37 [facility] Bilirubin [Mass/Vol] 1.4 mg/dL 0.2-1.0 [facility] Calcium [Mass/Vol] 9.5 mg/dL 8.5-10.1 [facility] Chloride [Moles/Vol] 101 mmol/L 98-107 [facility] Cholesterol [Mass/Vol] 168 mg/dL <=200 [facility] Cholesterol in HDL [Mass/Vol] 40 mg/dL 40-60 [facility] Comment on above: > or =60 mg/dl - LOW CARDIOVASCULAR RISK<40 mg/dl - HIGH CARDIOVASCULAR RISK CO2 [Moles/Vol] 28.1 mmol/L 21.0-32.0 [facility] Creatinine [Mass/Vol] 1.13 mg/dL 0.70-1.30 [facility] GFR/1.73 sq M.predicted MDRD (S/P/Bld) [Vol rate/Area] mL/min/{1.73_m2} >=60 [facility] Glucose [Mass/Vol] 120 mg/dL 74-106 [facility] Potassium [Moles/Vol] 4.1 mmol/L 3.5-5.1 [facility] Protein [Mass/Vol] 7.3 g/dL 6.4-8.2 [facility] Sodium [Moles/Vol] 140 mmol/L 136-145 [facility] Triglyceride [Mass/Vol] 69 mg/dL <=150 [facility] Urea nitrogen [Mass/Vol] 19.0 mg/dL 7.0-18.0 [facility] Urea nitrogen/Creatinine [Mass ratio] 16.8 mg/mg [facility] Laboratory - Hematology and Cell countson 11-20-2023 HbA1c (Bld) [Mass fraction] 6.3 % 4.5-6.2 [facility] Comment on above: ADA RECOMMENDED LIMI T 4.0 - 6.0ADA THERAPEUTIC TARGET < 7.0ACTION SUGGESTED> 7.0 Immature granulocytes/100 WBC (Bld) 0.2 % 0.0-0.5 [facility] Leukocytes [#/volume] correc alia for nucleated erythrocytes in Blood by Automated counon 11-20-2023 WBC corrected for nucl RBC Auto (Bld) [#/Vol] 5.2 10 3/uL 4.0-11.0 [facility] Lymphocytes Auto (Bld) [#/Vo l]on 11-20-2023 Lymphocytes (Bld) [#/Vol] 1.7 10 3/uL 1.2-3.8 [facility] Lymphocytes/100 WBC Auto (Bl d)on 11-20-2023 Lymphocytes/100 WBC (Bld) 32.9 % 20.5-60.0 [facility] MCH Auto (RBC) [Entitic mass ]on 11-20-2023 MCH (RBC) [Entitic mass] 28.2 pg 25.9-34.0 [facility] MCHC Auto (RBC) [Mass/Vol]on 11-20-2023 MCHC (RBC) [Mass/Vol] 33.0 g/dL 29.9-35.2 [facility] MCV Auto (RBC) [Entitic vol] on 11-20-2023 MCV (RBC) [Entitic vol] 85.4 fL 80.0-94.0 [facility] Monocytes Auto (Bld) [#/Vol] on 11-20-2023 Monocytes (Bld) [#/Vol] 0.6 10 3/uL 0.3-0.8 [facility] Monocytes/100 WBC Auto (Bld) on 11-20-2023 Monocytes/100 WBC (Bld) 12.2 % 1.7-12.0 [facility] Neutrophils Auto (Bld) [#/Vo l]on 11-20-2023 Neutrophils (Bld) [#/Vol] 2.8 10 3/uL 1.4-6.5 [facility] Neutrophils/100 WBC Auto (Bl d)on 11-20-2023 Neutrophils/100 WBC (Bld) 52.7 % 43.0-75.0 [facility] No Panel Informationon 11-19 Eosinophils # (Auto) 0.1 10 3/uL 0.0-0.7 [facility] Immature Granulocyte # (Auto) 0.01 10 3/uL 0.00-0.03 [facility] Platelet mean volume Auto (B ld) [Entitic vol]on 11-20-2023 Platelet mean volume (Bld) [Entitic vol] 10.4 fL 9.5-13.5 [facility] Platelets Auto (Bld) [#/Vol] on 11-20-2023 Platelets (Bld) [#/Vol] 190 10 3/uL 150-450 [facility] Protein Auto test strip (U) [Mass/Vol]on 11-20-2023 Protein (U) [Mass/Vol] Negative NEG/TRACE [facility] RBC Auto (Bld) [#/Vol]on RBC (Bld) [#/Vol] 5.47 10 6/uL 4.70-6.10 [facility] Serum or plasma albumin/glob ulin mass ratioon 11-20-2023 Albumin/Globulin [Mass ratio] 1.1 {ratio} [facility] Serum or plasma anion gap de terminationon 11-20-2023 Anion gap [Moles/Vol] 15.0 mmol/L [facility] Serum or plasma total choles terol/high density lipoprotein (HDL) cholesterol mass wilfred 11-20-2023 Cholesterol.total/Cho lesterol in HDL [Mass ratio] 4.2 {ratio} [facility] Comment on above: 3.3 - 4.4 LOW RISK4. 4 - 7.1 AVERAGE RISK7.1 - 11.0 MODERATE RISK>11.0 HIGH RISK Specific gravity Auto test s trip (U) [Rel density]on 11-20-2023 Specific gravity (U) [Rel density] CLEAR CLEAR [facility] Urine glucose measurement by test strip (mass/volume)on 11-20-2023 Glucose Test strip (U) [Mass/Vol] Negative NEGATIVE [facility] Urine hemoglobin detection b y automated test stripon 11-20-2023 Hemoglobin Auto test strip Ql (U) Negative NEGATIVE [facility] Urine nitrite detection by a utomated test stripon 11-20-2023 Nitrite Auto test strip Ql (U) Negative NEGATIVE [facility] Urobilinogen Auto test strip (U) [Mass/Vol]on 11-20-2023 Urobilinogen Qn (U) 0.2 {Lachelle'U}/dL 0.2-1.0 [facility] pH Auto test strip (U)on pH (U) 6.0 [pH] 5.0-9.0 [facility] CBC AUTO DIFFon 11-09-2021 BASO # 0.1 103/ul Normal 0.0-0.[address] [facility] Comment on above: Performed By: #### C BC #### [facility] [address] [address] [address] Niko Sosa Basophils/100 WBC (Bld) 1.0 % Normal 0.2-2.[address] [facility] Comment on above: Performed By: #### C BC #### [facility] [address] [address] [address] Niko Sosa EO # 0.1 103/ul Normal 0.0-0.7 [facility] Comment on above: Performed By: #### C BC #### [facility] [address] [place] [address] Dr. Niko Sosa Eosinophils/100 WBC (Bld) 1.2 % Normal 0.9-7.0 [facility] Comment on above: Performed By: #### C BC #### [facility] [address] [place] [address] Dr. Niko Sosa Erythrocyte distribution width (RBC) [Ratio] 13.9 % Normal 11.0-15.[address] [facility] Comment on above: Performed By: #### C BC #### [facility] [address] [place] [address] Dr. Niko Sosa Hematocrit (Bld) [Volume fraction] 48.7 % Normal 42.0-54.[address] [facility] Comment on above: Performed By: #### C BC #### [facility] [address] [place] [address] Dr. Niko Sosa Hemoglobin (Bld) [Mass/Vol] 16.0 g/dL Normal 14.0-18.[address] [facility] Comment on above: Performed By: #### C BC #### [facility] [address] [place] [address] Dr. Niko Sosa IG # 0.04 10e3/ul Critically high 0.00-0.03 [facility] Comment on above: Performed By: #### C BC #### [facility] [address] [place] [address] Dr. Niko Sosa IG % 0.7 % Critically high 0.0-0.5 [facility] Comment on above: Performed By: #### C BC #### [facility] [address] [place] [address] Dr. Niko Sosa LYMPH # 2.1 103/ul Normal 1.2-3.8 [facility] Comment on above: Performed By: #### C BC #### [facility] [address] [place] [address] Dr. Niko Sosa Lymphocytes/100 WBC (Bld) 34.9 % Normal 20.5-60.0 [facility] Comment on above: Performed By: #### C BC #### [facility] [address] [place] [address] Dr. Niko Sosa MANUAL DIFF REQ NO Normal [facility] Comment on above: Performed By: #### C BC #### [facility] [address] [place] [address] Dr. Niko Sosa MCH (RBC) [Entitic mass] 27.9 pg Normal 25.9-34.0 [facility] Comment on above: Performed By: #### C BC #### [facility] [address] [place] [address] Dr. Niko Sosa MCHC (RBC) [Mass/Vol] 32.9 g/dL Normal 29.9-35.2 [facility] Comment on above: Performed By: #### C BC #### [facility] [address] [place] [address] Dr. Niko Sosa MCV (RBC) [Entitic vol] 84.8 fL Normal 80.0-94.0 [facility] Comment on above: Performed By: #### C BC #### [facility] [address] [place] [address] Dr. Niko Sosa MONO # 0.6 103/ul Normal 0.3-0.8 [facility] Comment on above: Performed By: #### C BC #### [facility] [address] [place] [address] Dr. Niko Sosa Monocytes/100 WBC (Bld) 10.1 % Normal 1.7-12.0 [facility] Comment on above: Performed By: #### C BC #### [facility] [address] [place] [address] Dr. Niko Sosa NEUT # 3.2 103/ul Normal 1.4-6.5 [facility] Comment on above: Performed By: #### C BC #### [facility] [address] [place] [address] Dr. Niko Sosa Neutrophils/100 WBC (Bld) 52.1 % Normal 43.0-75.[address] [facility] Comment on above: Performed By: #### C BC #### [facility] [address] [address] [address] Niko Sosa Platelet mean volume (Bld) [Entitic vol] 9.7 fL Normal 9.5-13.[address] [facility] Comment on above: Performed By: #### C BC #### [facility] [address] [address] [address] Niko Sosa PLT 230 103/ul Normal 150-[address] [facility] Comment on above: Performed By: #### C BC #### [facility] [address] [address] [address] Niko Sosa RBC 5.74 106/ul Normal 4.70-6.10 [facility] Comment on above: Performed By: #### C BC #### [facility] [address] [address] [address] Niko Sosa WBC 6.0 103/ul Normal 4.0-11.[address] [facility] Comment on above: Performed By: #### C BC #### [facility] [address] [place] [address] Dr. Niko Sosa LIPID PROFILEon 11-09-2021 CHOL-HDL RATIO NORM SEE BELOW Normal [facility] Comment on above: Result Comment: 3.3 - 4.4 LOW RISK 4.4 - 7.1 AVERAGE RISK 7.1 - 11.0 MODERATE RISK >11.0 HIGH RISK Performed By: #### L IPID, CMP #### [facility] [address] [place] [address] Dr. Niko Sosa Cholesterol [Mass/Vol] 159 mg/dL Normal <=200 [facility] Comment on above: Performed By: #### L IPID, CMP #### [facility] [address] [address] [address] Niko Sosa Cholesterol in HDL [Mass/Vol] 38 mg/dL Critically low 40-60 [facility] Comment on above: Performed By: #### L IPID, CMP #### [facility] [address] [address] [address] Niko Sosa Cholesterol in LDL [Mass/Vol] 109.2 mg/dL Normal [facility] Comment on above: Performed By: #### L IPID, CMP #### [facility] [address] [address] [address] Niko Sosa Cholesterol.total/Cho lesterol in HDL [Mass ratio] 4.2 {ratio} Normal [facility] Comment on above: Performed By: #### L IPID, CMP #### [facility] [address] [address] [address] Niko Sosa HDL NORMAL > or = 60 mg/dl - LOW CARDIOVASCULAR RISK <40 mg/dl - HIGH CARDIOVASCULAR RISK Normal [facility] Comment on above: Performed By: #### L IPID, CMP #### [facility] [address] [address] [address] Niko Sosa LDL CALC NORMAL SEE BELOW Normal [facility] Comment on above: Result Comment: <100 mg/dl OPTIMAL 100 - 129 mg/dl NEAR OR ABOVE OPTIMAL 130 - 159 mg/dl BORDERLINE HIGH 160 - 189 mg/dl HIGH >190 mg/dl VERY HIGH Performed By: #### L IPID, CMP #### [facility] [address] [place] [address] Dr. Niko Sosa Triglyceride [Mass/Vol] 59 mg/dL Normal <=[address] [facility] Comment on above: Performed By: #### L IPID, CMP #### [facility] [address] [address] [address] Niko Sosa VLDL CALC 11.8 mg/dL Normal [facility] Comment on above: Performed By: #### L IPID, CMP #### [facility] [address] [address] [address] Niko Sosa PROF 14(COMP METB)on 022 Albumin [Mass/Vol] 3.8 g/dL Normal 3.4-5.0 [facility] Comment on above: Performed By: #### L IPID, CMP #### [facility] [address] [address] [address] Niko Sosa Albumin/Globulin [Mass ratio] 1.1 {ratio} Normal [facility] Comment on above: Performed By: #### L IPID, CMP #### [facility] [address] [address] [address] Niko Sosa ALP [Catalytic activity/Vol] 70 U/L Normal 46-[address] [facility] Comment on above: Performed By: #### L IPID, CMP #### [facility] [address] [address] [address] Niko Sosa ALT [Catalytic activity/Vol] 54 U/L Normal 16-[address] [facility] Comment on above: Performed By: #### L IPID, CMP #### [facility] [address] [place] [address] Dr. Niko Sosa Anion gap [Moles/Vol] 9.0 mmol/L Normal [facility] Comment on above: Performed By: #### L IPID, CMP #### [facility] [address] [place] [address] Dr. Niko Sosa AST [Catalytic activity/Vol] 20 U/L Normal 15-[address] [facility] Comment on above: Performed By: #### L IPID, CMP #### [facility] [address] [place] [address] Dr. Niko Sosa Bilirubin [Mass/Vol] 0.9 mg/dL Normal 0.2-1.[address] [facility] Comment on above: Performed By: #### L IPID, CMP #### [facility] [address] [place] [address] Dr. Niko Sosa Calcium [Mass/Vol] 8.8 mg/dL Normal 8.5-10.[address] [facility] Comment on above: Performed By: #### L IPID, CMP #### [facility] [address] [place] [address] Dr. Niko Sosa Chloride [Moles/Vol] 104 mmol/L Normal 98-107 [facility] Comment on above: Performed By: #### L IPID, CMP #### [facility] [address] [address] [address] Niko Sosa CO2 [Moles/Vol] 31.6 mmol/L Critically high 22.0-30.[address] [facility] Comment on above: Performed By: #### L IPID, CMP #### [facility] [address] [address] [address] Niko Sosa Creatinine [Mass/Vol] 1.01 mg/dL Normal 0.66-1.[address] [facility] Comment on above: Performed By: #### L IPID, CMP #### [facility] [address] [address] [address] Niko Sosa EGFR-AF IRAQI >60 Normal >=60 [facility] Comment on above: Performed By: #### L IPID, CMP #### [facility] [address] [address] [address] Niko Sosa EGFR-NON AF IRAQI >60 Normal >=[address] [facility] Comment on above: Performed By: #### L IPID, CMP #### [facility] [address] [address] [address] Niko Sosa Globulin (S) [Mass/Vol] 3.5 g/dL Normal [facility] Comment on above: Performed By: #### L IPID, CMP #### [facility] [address] [address] [address] Niko Sosa Glucose [Mass/Vol] 134 mg/dL Critically high 74-106 [facility] Comment on above: Performed By: #### L IPID, CMP #### [facility] [address] [address] [address] Niko Sosa Potassium [Moles/Vol] 4.6 mmol/L Normal 3.4-5.[address] [facility] Comment on above: Performed By: #### L IPID, CMP #### [facility] [address] [address] [address] Niko Sosa Protein [Mass/Vol] 7.3 g/dL Normal 6.1-8.[address] [facility] Comment on above: Performed By: #### L IPID, CMP #### [facility] [address] [address] [address] Niko Sosa Sodium [Moles/Vol] 140 mmol/L Normal 137-145 [facility] Comment on above: Performed By: #### L IPID, CMP #### [facility] [address] [address] [address] Niko Sosa Urea nitrogen [Mass/Vol] 22.0 mg/dL Critically high 7.0-18.[address] [facility] Comment on above: Performed By: #### L IPID, CMP #### [facility] [address] [address] [address] Niko Sosa Urea nitrogen/Creatinine [Mass ratio] 21.8 mg/mg Normal [facility] Comment on above: Performed By: #### L IPID, CMP #### [facility] [address] [address] [address] Niko Sosa Vital Signs Date Time Vital Sign Value Performing Clinician Facility 04-08-2025 14:240400 Body height 182.88 cm Keaton Ball DO Work Phone: [facility] 04-08-2025 14:24-0400 Body mass index (BMI) [Ratio] 33.5 kg/m2 Keaton Ball DO Work Phone: [facility] 04-08-2025 14:24-0400 Body weight 112.03 kg Keaton Ball DO Work Phone: [facility] 04-08-2025 14:24-0400 Diastolic blood pressure 66 mm[Hg] Keaton Ball DO Work Phone: [facility] 04-08-2025 14:24-0400 Heart rate 57 /min Keaton Ball DO Work Phone: [facility] 04-08-2025 14:24-0400 Respiratory rate 12 /min Keaton Ball DO Work Phone: [facility] 04-08-2025 14:24-0400 Systolic blood pressure 110 mm[Hg] Keaton [employer] DO Work Phone: [facility] 01-23-2024 13:21-0400 Blood Pressure Location Nohelia Orzech [facility] 01-23-2024 13:21-0400 Diastolic blood pressure 64 mm[Hg] Nohelia Orzech [facility] 01-23-2024 13:21-0400 Heart rate 62 /min Nohelia Orzech [facility] 01-23-2024 13:21-0400 Respiratory rate 19 /min Nohelia Orzech [facility] 01-23-2024 13:21-0400 Systolic blood pressure 106 mm[Hg] Nohelia Orzech [facility] 12-31-2023 11:03-0400 Body height 182.88 cm [facility] 12-31-2023 11:03-0400 Body mass index (BMI) [Ratio] 34.3 kg/m2 [facility] 12-31-2023 11:03-0400 Body weight 114.92 kg [facility] 12-31-2023 11:03-0400 Diastolic blood pressure 75 mm[Hg] [facility] 12-31-2023 11:03-0400 Heart rate 71 /min [facility] 12-31-2023 11:03-0400 Respiratory rate 12 /min [facility] 12-31-2023 11:03-0400 Systolic blood pressure 110 mm[Hg] [facility] 12-11-2023 08:41-0400 Body height 182.88 cm [facility] 12-11-2023 08:41-0400 Body mass index (BMI) [Ratio] 35.1 kg/m2 [facility] 12-11-2023 08:41-0400 Body weight 117.53 kg [facility] 12-11-2023 08:41-0400 Diastolic blood pressure 74 mm[Hg] [facility] 12-11-2023 08:41-0400 Heart rate 65 /min [facility] 12-11-2023 08:41-0400 Respiratory rate 12 /min [facility] 12-11-2023 08:41-0400 Systolic blood pressure 113 mm[Hg] [facility] 11-12-2023 11:20-0400 Body height 182.88 cm [facility] 11-12-2023 11:20-0400 Body mass index (BMI) [Ratio] 35 kg/m2 [facility] 11-12-2023 11:20-0400 Body weight 117.19 kg [facility] 11-12-2023 11:20-0400 Diastolic blood pressure 79 mm[Hg] [facility] 11-12-2023 11:20-0400 Heart rate 73 /min [facility] 11-12-2023 11:20-0400 Respiratory rate 12 /min [facility] 11-12-2023 11:20-0400 Systolic blood pressure 113 mm[Hg] [facility] 11-06-2022 16:30-0400 Body height 182.88 cm Keaton Ball Other [facility] [employer] Other 11-06-2022 16:30-0400 Body mass index (BMI) [Ratio] 36.4 kg/m2 Keaton Ball Other [facility] [employer] Other 11-06-2022 16:30-0400 Body weight 121.75 kg Keaton Ball Other [facility] [employer] Other 11-06-2022 16:30-0400 Diastolic blood pressure 70 mm[Hg] Keaton Ball Other [facility] [employer] Other 11-06-2022 16:30-0400 Respiratory rate 12 /min Keaton Ball Other [facility] [employer] Other 11-06-2022 16:30-0400 Systolic blood pressure 112 mm[Hg] Keaton Ball Other [facility] [employer] Other Encounters Encounter Date Encounter Type Care Provider Facility Start: 04-12-2025 End: 04-12-2025 ambulatory Keaton Hammer DO Work Phone: [facility] Work Phone: Start: 04-12-2025 End: 04-12-2025 Patient encounter procedure Keaton Hammer DO -[facility] [place] Work Phone: Start: 04-08-2025 End: 04-08-2025 ambulatory Keaton Hammer DO Work Phone: [facility] Work Phone: Start: 04-08-2025 End: 04-08-2025 Patient encounter procedure Keaton Hammer DO -[facility] Work Phone: Start: 04-08-2025 End: 04-08-2025 Patient encounter status Keaton Hammer DO [facility] Start: 03-23-2024 End: 03-23-2024 ambulatory [facility] Work Phone: Start: 03-23-2024 End: 03-23-2024 Patient encounter procedure Replaced By [facility] Work Phone: Start: 01-23-2024 End: 01-23-2024 ambulatory Nohelia X Orzech Facility:[facility] Start: 01-23-2024 End: 01-23-2024 Patient encounter procedure Nohelia X Orzech [facility] Start: 01-08-2024 ambulatory Noheila Orzech Facility: [facility] Start: 01-03-2024 Non-patient / Non-visit Replaced By [facility] [employer] Work Phone: Start: 12-31-2023 End: 12-31-2023 ambulatory [facility] Work Phone: Start: 12-31-2023 End: 12-31-2023 Patient encounter procedure Replaced By [facility] Work Phone: Start: 12-11-2023 End: 12-11-2023 Patient encounter procedure Replaced By [facility] Work Phone: Start: 12-02-2023 End: 12-02-2023 ambulatory [facility] Work Phone: Start: 12-02-2023 End: 12-02-2023 Patient encounter procedure Replaced By [facility] Work Phone: Start: 11-20-2023 Non-patient / Non-visit Replaced By [facility] Work Phone: Start: 11-12-2023 End: 11-12-2023 ambulatory [facility] Work Phone: Start: 11-12-2023 End: 11-12-2023 Encounter for general adult medical examination without abnormal findings [facility] Start: 11-12-2023 End: 11-12-2023 Patient encounter procedure Replaced By [facility] Work Phone: Start: 03-21-2023 End: 03-21-2023 ambulatory Keaton Hammer Other [employer] Other Start: 03-21-2023 Telephone encounter Keaton Hammer [facility] Start: 11-06-2022 End: 11-06-2022 ambulatory Keaton Hammer Other [employer] Other Start: 11-06-2022 Office outpatient vi sit 15 minutes Keaton Hammer [facility] Start: 11-13-2021 Encounter for genera l adult medical examination without abnormal findings DR KEATON HAMMER [facility] Start: 11-09-2021 End: 11-10-[address] KEATON HAMMER Facility:[facility] Start: 11-09-2021 End: 11-10-2021 Encounter for general adult medical examination without abnormal findings DR KEATON HAMMER Facility:[facility] Start: 11-06-2021 Adult health examination Keaton Hammer Other [employer] Other Procedures Date Procedure Procedure Detail Performing Clinician Depression screening Jackson Hammer Other Plan of Treatment Date Care Activity Detail Author Bacteria identified in Urine by Culture [facility] Comprehensive metabo lic 1999 panel - Serum or Plasma [facility] enter Comprehensive metabo lic 1999 panel - Serum or Plasma [facility] Immunizations Immunization Date Immunization Notes Care Provider Susan rhodes 02-22-2014 diphtheria, tetanus toxoids and acellular pertussis vaccine, unspecified formulation Keaton Hammer Other [facility] Payers Date Payer Category Payer Private Health Insurance [id number] 1985 Unknown [id number] 1985 Unknown [id number] 1985 Unknown [id number] 1959 Unknown [id number] Unknown [id number] 2.1 [id number] Social History Date Type Detail Facility Sex Assigned At [facility] Start: 1985 Sex Assigned At Male [facility] Start: 01-23-2024 End: 04-08-2025 Tobacco smoking status Never smoked tobacco (finding) [facility] Sex Male (finding) [facility] Functional Status Date Assessment Result Facility 01-23-2024 Functional Status N/A [facility] Clinical Notes 11-06-2022 to 04-08-2025 Note Date & Type Note Facility 04-08-2025 Evaluation note Diagnosis Onset Date Resolution ELIF (generalized anxiety disorder) acute April 08 025 2:12pm GERD (gastroesophageal reflux disease) acute April 08 2:12pm IFG (impaired fasting glucose) acute April 08 2:12pm Obesity acute April 08 2 025 2:12pm Palpitations acute April 08, 2025 2:12pm Paroxysmal atrial fibrillation acute April 08 2:12pm Wellness examination noneactive Augu st 2024 2:12pm [facility] Work Phone: 1(591) 247-951908-13-2024 Chief complaint+Reason for visit Narrative * Chief Complaint referral for urologi st sinus infection, covid - [phone] Reason for Visit Acute prostatitis IFG (impaired fasting glucose) Obesity Prostatitis Acute bronchitis due to other specified organisms IFG (impaired fasting glucose) [facility] Work Phone: 1(919) 645-354006-14-2024 Hospital Discharge instructions Patient Education 01/23/2024 14:38:28 Prostatitis Prostatitis Prostatitis is swelling or inflammation of the prostate gland, also called the prostate. This glandis about 1.5 inches wide and 1 inch high, and it is involved in making semen. The prostate is located below a man's bladder, in front of the rectum. There are four types of prostatitis: Chronic prostatitis (CP), also called chronic pelvic pain syndrome (CPPS). This is the most common type of prostatitis. It is associated with increased muscle tone in the area between the hip bones (pelvic area), around the prostate. This type is also known as a pelvic floor disorder. Chronic bacterial prostatitis. This type usually results from an acute bacterial infection in the prostate gland that keeps coming back or has not been treated properly. The symptoms are less severe than those caused by acute bacterial prostatitis, which lasts a shorter time. Asymptomatic inflammatory prostatitis. This type does not have symptoms and does not need treatment. This is diagnosed when tests are done for other disorders of the urinary tract or reproductive tract. Acute bacterial prostatitis. This type starts quickly and results from an acute bacterial infectionin the prostate gland. It is usually associated with a bladder infection, high fever, and chills. This is the least common type of prostatitis. What are the causes? Bacterial prostatitis is caused by an infection from bacteria. Chronic nonbacterial prostatitis may be caused by: Factors related to the nervous system. This system includes thebrain, spinal cord, and nerves. An autoimmune response. This happens when the body's disease-fighting system attacks healthy tissuein the body by mistake. Psychological factors. These have to do with how the mind works. The causes of the other types of prostatitis are usually not known. What are the signs or symptoms? Symptoms of this condition depend on the type of prostatitis you have. Acute bacterial prostatitis Symptoms may include: Pain or burning during urination. Frequent and sudden urges to urinate. Trouble starting to urinate. Fever. Chills. Pain in your muscles or joints, lower back, or lower abdomen. Other types of prostatitis Symptoms may include: Sudden urges to urinate, or urinating often. Trouble starting to urinate. Weak urine stream. Dribbling after urination. Discharge coming from the penis. Pain in the testicles, the penis, or the tip of the penis. Pain in the area in front of the rectum and below the scrotum (perineum). Pain when ejaculating. How is this diagnosed? This condition may be diagnosed based on: A physical and medical exam. A digital rectal exam. For this, the health care provider may use a finger to feel the prostate. A urine test to check for bacteria. A semen sample or blood tests. Ultrasound. Urodynamic tests to check how your body handles urine. Cystoscopy to look inside your bladder or inside the part of your body that drains urine from the bladder (urethra). How is this treated? Treatment for this condition depends on the type of prostatitis. Treatment may involve: Medicines to relieve pain or inflammation, or to help relax your muscles. Physical therapy. Heat therapy. Biofeedback. These techniques help you control certain body functions. Relaxation exercises. Antibiotic medicine, if your condition is caused by bacteria. Sitz baths. These warm water baths help to relax your pelvic floor muscles, which helps to relieve pressure on the prostate. Follow these instructions at home: Medicines Take ibbc-aji-wefkdcf and prescription medicines only as told by your health care provider. If you were prescribed an antibiotic medicine, take it as told by your health care provider. Do notstop using the antibiotic even if you start to feel better. Managing pain and swelling Take sitz baths as directed by your health care provider. For a sitz bath, sit in warm water that is deep enough to cover your hips and buttocks. If directed, apply heat to the affected area as often as told by your health care provider. Use theheat source that your health care provider recommends, such as a moist heat pack or a heating pad. ?Place a towel between your skin and the heat source. ?Leave the heat on for 20 30 minutes. ?Remove the heat if your skin turns bright red. This is especially important if you are unable to feel pain, heat, or cold. You may have a greater risk of getting burned. General instructions Do exercises as told by your health care provider, if you were prescribed physical therapy, biofeedback, or relaxation exercises. Keep all follow-up visits as told by your health care provider. This is important. Where to find more information National [place] of Diabetes and Digestive and Kidney Diseases: https://www.niddk.nih.gov Contact a health care provider if: Your symptoms get worse. You have a fever. Get help right away if: You have chills. You feel light-headed or feel like you may faint. You cannot urinate. You have blood or blood clots in your urine. Summary Prostatitis is swelling or inflammation of the prostate gland. Treatment for this condition depends on the type of prostatitis. Take djlb-svn-lsxmcii and prescription medicines only as told by your health care provider. Get help right away of you have chills, feel light-headed, feel like you may faint, cannot urinate,or have blood or blood clots in your urine. This information is not intended to replace advice given to you by your health care provider. Make sure you discuss any questions you have with your health care provider. Document Revised: 09/01/2020 Document Reviewed: 09/01/2020 [employer] Patient Education 2022 [employer]. 01/23/2024 14:38:28 Benign Prostatic Hyperplasia Benign Prostatic Hyperplasia Benign prostatic hyperplasia (BPH) is an enlarged prostate gland that is caused by the normal agingprocess. The prostate may get bigger as a man gets older. The condition is not caused by cancer. The prostate is a walnut-sized gland that is involved in the production of semen. It is located in front of the rectum and below the bladder. The bladder stores urine. The urethra carries stored urine ou t of the body. An enlarged prostate can press on the urethra. This can make it harder to pass urine. The buildup of urine in the bladder can cause infection. Back pressure and infection may progress to bladder damage and kidney (renal) failure. What are the causes? This condition is part of the normal aging process. However, not all men develop problems from thiscondition. If the prostate enlarges away from the urethra, urine flow will not be blocked. If it enlarges toward the urethra and compresses it, there will be problems passing urine. What increases the risk? This condition is more likely to develop in men older than 50 years. What are the signs or symptoms? Symptoms of this condition include: Getting up often during the night to urinate. Needing to urinate frequently during the day. Difficulty starting urine flow. Decrease in size and strength of your urine stream. Leaking (dribbling) after urinating. Inability to pass urine. This needs immediate treatment. Inability to completely empty your bladder. Pain when you pass urine. This is more common if there is also an infection. Urinary tract infection (UTI). How is this diagnosed? This condition is diagnosed based on your medical history, a physical exam, and your symptoms. Tests will also be done, such as: A post-void bladder scan. This measures any amount of urine that may remain in your bladder after you finish urinating. A digital rectal exam. In a rectal exam, your health care provider checks your prostate by putting a lubricated, gloved finger into your rectum to feel the back of your prostate gland. This exam detects the size of your gland and any abnormal lumps or growths. An exam of your urine (urinalysis). A prostate specific antigen (PSA) screening. This is a blood test used to screen for prostate cancer. An ultrasound. This test uses sound waves to electronically produce a picture of your prostate gland. Your health care provider may refer you to a specialist in kidney and prostate diseases (urologist). How is this treated? Once symptoms begin, your health care provider will monitor your condition (active surveillance or watchful waiting). Treatment for this condition will depend on the severity of your condition. Treatment may include: Observation and yearly exams. This may be the only treatment needed if your condition and symptoms are mild. Medicines to relieve your symptoms, including: ?Medicines to shrink the prostate. ?Medicines to relax the muscle of the prostate. Surgery in severe cases. Surgery may include: ?Prostatectomy. In this procedure, the prostate tissue is removed completely through an open incision or with a laparoscope or robotics. ?Transurethral resection of the prostate (TURP). In this procedure, a tool is inserted through the opening at the tip of the penis (urethra). It is used to cut away tissue of the inner core of the prostate. The pieces are removed through the same opening of the penis. This removes the blockage. ?Transurethral incision (TUIP). In this procedure, small cuts are made in the prostate. This lessens the prostate's pressure on the urethra. ?Transurethral microwave thermotherapy (TUMT). This procedure uses microwaves to create heat. The heat destroys and removes a small amount of prostate tissue. ?Transurethral needle ablation (TUNA). This procedure uses radio frequencies to destroy and remove a small amount of prostate tissue. ?Interstitial laser coagulation (ILC). This procedure uses a laser to destroy and remove a small amount of prostate tissue. ?Transurethral electrovaporization (TUVP). This procedure uses electrodes to destroy and remove a small amount of prostate tissue. ?Prostatic urethral lift. This procedure inserts an implant to push the lobes of the prostate away from the urethra. Follow these instructions at home: Take iiae-daq-fcgjacl and prescription medicines only as told by your health care provider. Monitor your symptoms for any changes. Contact your health care provider with any changes. Avoid drinking large amounts of liquid before going to bed or out in public. Avoid or reduce how much caffeine or alcohol you drink. Give yourself time when you urinate. Keep all follow-up visits. This is important. Contact a health care provider if: You have unexplained back pain. Your symptoms do not get better with treatment. You develop side effects from the medicine you are taking. Your urine becomes very dark or has a bad smell. Your lower abdomen becomes distended and you have trouble passing urine. Get help right away if: You have a fever or chills. You suddenly cannot urinate. You feel light-headed or very dizzy, or you faint. There are large amounts of blood or clots in your urine. Your urinary problems become hard to manage. You develop moderate to severe low back or flank pain. The flank is the side of your body between the ribs and the hip. These symptoms may be an emergency. Get help right away. Call 911. Do not wait to see if the symptoms will go away. Do not drive yourself to the hospital. Summary Benign prostatic hyperplasia (BPH) is an enlarged prostate that is caused by the normal aging process. It is not caused by cancer. An enlarged prostate can press on the urethra. This can make it hard to pass urine. This condition is more likely to develop in men older than 50 years. Get help right away if you suddenly cannot urinate. This information is not intended to replace advice given to you by your health care provider. Make sure you discuss any questions you have with your health care provider. Document Revised: 02/13/2022 Document Reviewed: 02/13/2022 [employer] Patient Education 2022 [employer]. Follow Up Care 01/09/2024 10:22:53 With:GAYLE Shaw APRN, CONCHA Cabral, URL Address: When: Unknown Comments:[facility] 06-14-[address] Hammer referral HPI Staff 38 year old male referred by Dr. Hammer for prostatitis. In Dr. Herbert notes states symptoms improved on short course of Bactrim only to return. Pt. was on Bactrim for 28 days and was told to stop after14 days due to not improving symptoms and wasted to get a urine culture. Dysuria: Pt. states in the morning after getting up with a full bladder Pt. will have some discomfort. Incomplete bladder emptying: no, PVR 0mL Hematuria: no Frequency: no Urgency: no Nocturia: no Stream: good stream Post void dripping: no Wearing pads/ Depends: no Urge incontinence: no Stress incontinence: no Incontinence without Sensory Awareness: no Abdominal pain: _ Flank pain: no Sexual complaints: Pt. states 30mins after intercourse Pt. will have some lower abd pain. History of Present Illness I have reviewed and verified the staff HPI to be accurate for this encounter. Portions of this record may have been created with voice recognition artificial intelligence software, specifically [email or web address], [email or web address] and or Nu[employer]. Substitutions may have occurred due to the inherent limitations of voice recognition and artificial intelligence software. Review of Systems PHQ Score Initial Depression Screen Score: 0 SCORE Physical Exam Vitals & Measurements HR: 62(Peripheral) RR: 19 BP: 106/64 HT: 72 in HT: 183 cm WT: 114 kg WT: 250.8 lb BMI: 34.04 General: Well developed, well nourished, in no acute distress. Genitourinary: Prostate: normal prostate, no hard nodule observed. No significant pain on STAR. Assessment/Plan Referred by Dr Hammer. Completed review of external notes, results, imaging. MAU 24 1. Bladder pain (R39.89: Other symptoms and signs involving the genitourinary system) Only residual symptoms at this time, more annoying than anything to the patient. He does notice that this gets worse with intake of spicy foods. Does not drink much caffeine, if atall. Has never had issues with bladder irritation prior to this episode. We discussed bladder irritants and how these can contribute to urinary symptoms, especially in the setting of possible bladderinflammation secondary to prostatitis with questionable incomplete emptying at that time. Renal ultrasound 01/13/2024 - mild left pelviectasis, may be normal variant versus obstruction. No notable abnormalities of the bladder. PVR today 0 Given continued improvement, recommend to continue to monitor over time. However, if symptoms or not continuing to improve or back to normal over the next month further evaluation with cystoscopy. - He denies to schedule follow-up at this time. Patient to call office if bladder irritation continues and he wishes for further workup. 2. Prostatitis (N41.9: Inflammatory disease of prostate, unspecified) Initially saw PCP with complaints of urethral burning, bladder pain, frequency and urgency. November 2023 tx w/ Bactrim DS BID x 2 weeks. Pt admits he was taking medication inconsistently but did have mild improvement of his symptoms, then worsening of sxs w/in 5 days of completion. Then tx w/doxycycline twice daily x 10 days without improvement, started back on Bactrim DS twice daily x 4 weeks. Pt states he only took for approximately 2 weeks without improvement of his symptoms and PCP instructed him to stop to recheck urine which continue to be negative. Patient states that symptoms have slowly been improving since that time. He admits he had difficulty tolerating antibiotics due to bowel side effects. We did discuss other treatment options for prostatitis including fluoroquinolones. However, would like to refrain from use of these medications due to his activity level. Recommend use of probiotic during any future antibiotic course STAR today is negative, PVR 0 UA today w/o signs of blood or infection. Has never had issue with urinary or prostate infection in the past. Denies any episode of gross hematuria. We discussed prevention of prostatitis in the future, including timed voiding, complete emptying. -Patient to contact our office with any future prostatitis symptoms Ordered: [id number] Measure Post Void residual urine and/or bladder capacity by US- non-imaging Urnls Dip Stick Auto w/o Microscopy POC 34828 3. BPH (benign prostatic hyperplasia) (N40.0: Benign prostatic hyperplasia without lower urinary tract symptoms) IPSS 16, moderate sxs of BPH - not quite back to baseline after episode of prostatitis. Does admit to baseline every 2 hour frequency agitation. Denies significant stream symptoms. We discussed male urologic anatomy including the prostate and how this could be contributing to hisurinary symptoms. We discussed how potential prostate obstruction affects long-term bladder health and compliance. We discussed alpha- silvesrte medications to help with urinary symptoms as well as further evaluation of bladder and urinary with cystoscopy. Patient states that he does no (more content not included)...[facility] HospitalComment on above:Result Comment: Electronically Signed By: GAYLE Shaw APRN, Nohelia Angeles\.br\Date and Time Signed: 01/23/24 15:11 [id number] Evaluation note* Encounter Date Diagnosis Assessment Notes Treatment Notes Treatment Clinical Notes Mar, Tinea versicolor (ICD-10 - B36.0) [employer] Other 03-29-2023 Evaluation note* Encounter Date Diagnosis Assessment Notes Treatment Notes Treatment Clinical Notes Oct, Irritant contact dermatitis due to detergent (ICD-10 - L24.0) Avoid harsh chemicals or soaps. Cool compresses [employer] Other Chief complaint+Reason for visit Narrative* Chief Complaint Wellness continued congestion diabetes medication referral for urologist Reason for Visit ELIF (generalized anx iety disorder) IFG (impaired fasting glucose) Obesity Paroxysmal atrial fibrillation Wellness examination Acute prostatitis IFG (impaired fasting glucose) Obesity Prostatitis Acute prostatitis IFG (impaired fasting glucose) Obesity Prostatitis [facility] Work Phone: Evaluation + Plan note No data available for this section [facility] Evaluation note* Diagnosis Onset Date Resolution Status ELIF (generalized anxiety disorder) acute IFG (impaired fasting glucose) acute Obesity acute Paroxysmal atrial fibrillation acute Wellness examination noneact mk [facility] Work Phone: Evaluation note* Diagnosis Onset Date Resolution Status ELIF (generalized anxiety disorder) acute IFG (impaired fasting glucose) acute Obesity acute Paroxysmal atrial fibrillation acute Wellness examination noneact mk Acute prostatitis acute IFG (impaired fasting glucose) acute Obesity acute Prostatitis noneactive Acute prostatitis acute IFG (impaired fasting glucose) acute Obesity acute Prostatitis noneactive [facility] Work Phone: Evaluation note* Diagnosis Onset Date Resolution Status Acute prostatitis acute IFG (impaired fasting glucose) acute Obesity acute Prostatitis noneactive Acute bronchitis due to other specified organisms acute IFG (impaired fasting glucose) acute [facility] Work Phone: Evaluation note* Diagnosis Onset Date Resolution Status Admit Date ELIF (generalized anxiety disorder) acute April 08 2:12pm IFG (impaired fasting glucose) acute April 08 2:12pm Obesity acute April 08 2:12pm Paroxysmal atrial fibrillation acute April 08 2:12pm Wellness examination noneactive Augu 2024 2:12pm [facility] Work Phone: Hisannv general Narrative - Reported* Type Description Date Medical History ELIF (generalized anxiety disorde r) Medical History Gastro-esophageal re flux disease with esophagitis, without bleeding Medical History IFG (impaired fasting glucose) Medical History Paroxysmal atrial fibrillation Medical History Tinea versicolor Medical History IBS (irritable bowel syndrome) Medical History Morbid obesity [employer] Other history general Narrative - Reported* Type Description Date Medical History ELIF (generalized anxiety disorde r) [...] no changes required, Problem Status : Resolved, [employer] Other Progress note No data available for this section [facility] Reason for referral (narrative)No reason for referral information availableW[facility] Work Phone: Summary Purpose Family History Relationship Condition Age at Onset Recorded Date/T kylee father Diabetes mellitus Unknown Not Specified Diabetes mellitus Unknown Relationship Condition Age at Onset Recorded Date/T kylee father Diabetes mellitus Unknown mother Diabetes mellitus Unknown Advance Directives Advance Directive Response Recorded Date/ Time Advance Directives No November 11 11:13am Advance Directive Response Recorded Date/ Time Advance Directives No July 9:53am Chief Complaint and Reason for Visit Chief Complaint Wellness Reason for Visit ELIF (generalized anx iety disorder) IFG (impaired fasting glucose) Obesity Paroxysmal atrial fibrillation Wellness examination Chief Complaint Wellness continued congestion Reason for Visit ELIF (generalized anx iety disorder) IFG (impaired fasting glucose) Obesity Paroxysmal atrial fibrillation Wellness examination Chief Complaint Admit Date wellness April 08, 2025 2: 12pm Reason for Visit Admit Date ELIF (generalized anxiety disorder) Augus t 2024 2:12pm IFG (impaired fasting glucose) April 082024 2:12pm Obesity April 08, 2025 2: 12pm Paroxysmal atrial fibrillation April 082024 2:12pm Wellness examination April 08, 2025 2 :12pm Chief Complaint Admit Date wellness April 08, 2025 2: 12pm Tetanus Shot April 12, 2025 4:07pm Reason for Visit Admit Date ELIF (generalized anxiety disorder) Marus t 2024 2:12pm GERD (gastroesophageal reflux disease) A ugust 2024 2:12pm IFG (impaired fasting glucose) April 082024 2:12pm Obesity April 08, 2025 2: 12pm Palpitations April 08, 2025 2: 12pm Paroxysmal atrial fibrillation April 082024 2:12pm Wellness examination April 08, 2025 2 :12pm Additional Source Comments (unrecognized sect ion and content) No Status Records FoundNo Status Records Found INFORMATION SOURCE (unrecogn ized section and content) DATE CREATED AUTHOR 11/15/2021 [employer] [facility] DATE CREATED AUTHOR LITZY BARONE 01/28/[address] [facility] REASON FOR VISIT (unrecogniz ed section and content) RashNo Information Care Teams (unrecognized sec tion and content) Team Status: Active Member Role Status Dates Keaton Hammer DO Primary Care Provider Active Team Status: Inactive Member Role Status Bianca Hammer DO Primary Care Provide r, Attending Provider Active Start: November 12, 2023 End: November 12, 2023 Team Status: Active Member Role Status Bianca Hammer DO Primary Care Provide r, Attending Provider Active Start: November 20, 2023 Team Status: Inactive Member Role Status Bianca Hammer DO Primary Care Provider Active Start: December 02, 2023 End: December 02, 2023 Jenelle Mcdaniel APRN NURSING EXECUTIVE-C Attending Provider Act mk Start: December 02, 2023 End: December 02, 2023 Team Status: Inactive Member Role Status Bianca Hammer DO Primary Care Provide r, Attending Provider Active Start: December 11, 2023 End: December 11, 2023 Team Status: Inactive Member Role Status Bianca Hammer DO Primary Care Provide r, Attending Provider Active Start: December 31, 2023 End: December 31, 2023 Team Status: Active Member Role Status Bianca Hammer DO Primary Care Provide r, Attending Provider Active Start: January 03, 2024 Team Status: Inactive Member Role Status Bianca Hammer DO Primary Care Provide r, Attending Provider Active Start: March 23, 2024 End: March 23, 2024 Team Status: Inactive Member Role Status Bianca Hammer DO Primary Care Provider Active Start: April 08, 2025 End: April 08, 2025 Keaton Hammer DO Attending Provider Active Sta rt: April 08, 2025 End: April 08, 2025 Team Status: Inactive Member Role Status Bianca Hammer DO Primary Care Provider Active Start: April 12, 2025 End: April 12, 2025 Keaton Hammer DO Attending Provider Active Sta rt: April 12, 2025 End: April 12, 2025 Goals (unrecognized section and content) Goals may [...] BE BASED ON THE PRIMARY CLINICAL RECORDS. [facility] [employer] [facility]. provides no warranty or guarantee of the accuracy or completeness of information in this document.
== END 2025-04-13 11:54 | disposition home or self-care (01) ==
LOC: LAB 11:53
PROVIDERS: PCP Internal Medicine; Visit Provider Internal Medicine
DX: Z00.00 Encounter for general adult medical examination without abnormal findings (principal)
CPT/HCPCS: 36415; 80053; 80061; 83036; 84443; 85025

== ENCOUNTER 2025-04-18 07:55 | Outpatient (OUT) | payer OTHER, SELFPAY ==
--- NOTE | 2025-04-18 08:00 | CA_ITS ---
Patient Name: LEO SWAN MR#: [id number] : 1985 Exam Date: 04/18/2025 Ordering Doctor: DR BUSTER HAMMER D.O. ECHOCARDIOGRAM REPORT PROCEDURE: CA ECHO DOPPLER COMPLETE INDICATIONS: H/O Atrial fibrillation, heart murmur COMPARISON: None. DESCRIPTION: COMPLETE ECHOCARDIOGRAM Real-time transthoracic echocardiography with 2D, M-mode, spectral and color flow Doppler performed. QUALITY: Technical quality was good. LEFT VENTRICLE: Normal chamber size. Normal left ventricular wall thickness. LV EF: Global left ventricular systolic function is normal; visually estimated ejection fraction is 60 to 65%. No significant wall motion abnormalities. DIASTOLIC: Normal diastolic function. ATRIAL SEPTUM: Hypermobile interatrial septum. Visually appears intact. LEFT ATRIUM: Normal chamber size. RIGHT ATRIUM: Normal chamber size. RIGHT VENTRICLE: Normal chamber size. Normal right ventricular systolic function. TRICUSPID VALVE: Normal mobility and thickness. No stenosis with trivial regurgitation. No evidence of pulmonary hypertension. RVSP 25 mmHg MITRAL VALVE: Normal mobility and thickness. No evidence of mitral valve stenosis. There is no mitral annular calcification. Trivial mitral regurgitation. AORTIC VALVE: Normal trileaflet appearance. No visible sclerosis. Normal leaflet mobility. No evidence of aortic valve stenosis. No aortic regurgitation. AORTIC ROOT: Normal diameter and appearance. PULMONIC VALVE: Normal thickness and mobility. No stenosis. Trivial regurgitation. PERICARDIUM: No evidence of pericardial effusion. IVC: Collapses with inspiration. CONCLUSION: 1. Global left ventricular systolic function is normal; visually estimated ejection fraction is 60 to 65% 2. Normal right ventricular size and systolic function 3. Normal diastolic function 4. The left atrium is normal in size 5. No significant valvular abnormalities Adult Echocardiography Procedure Report Left Ventricle LVEDD (3.7 - 5.6 cm): 5.26 cm LVESD (2.2 - 4.0 cm): 3.19 cm LVIVS thickness (0.6 - 1.2 cm): 1.04 cm LVPW thickness (0.5 - 1.0 cm): 1.06 cm e': 0.10 m/s E - e': 4.52 LVOT Max Gradient: 3.44 mm[Hg] LVOT Area (cm2): 0.93 m/s Peak Velocity (LVOT): 0.93 m/s LVOT Diameter 3.11 cm Left Ventricular Ejection Fraction: 63.01 % Left Atrium LA Volume Index (2D A2C): 29.12 ml/m2 Left Atrium Systolic Dimension: 4.33 cm Mitral Valve MV E to A Ratio: 0.89 Mitral Valve A-Wave Peak Velocity: 0.50 m/s Mitral Valve E-Wave Peak Velocity: 0.45 m/s Right Ventricle Aorta AO Root Diam: 4.23 cm Aortic Valve AoV Area (Peak Hao): 6.68 cm2, 6.68 cm2 Peak Velocity(Antegrade Flow): 1.05 m/s Peak Gradient(Antegrade Flow): 4.42 mm[Hg] Mean Velocity(Antegrade Flow): 0.74 m/s Mean Gradient(Antegrade Flow): 2.53 mm[Hg] Velocity Time Integral: 25.00 cm Tricuspid Valve Peak Velocity (Regurgitant Flow): 2.36 m/s Pulmonic Valve Peak Gradient: 3.43 mm[Hg], 3.29 mm[Hg] Right Atrium Right Atrium Systolic Pressure: 93.44 ml, 93.44 ml Dictated by: Watson Cabrera M.D. on 04/19/2025 at 09:58 Approved by: Watson Cabrera M.D. on 04/19/2025 at 10:01
--- OUTSIDE RECORDS SUMMARY | 2025-04-18 08:07 | XMS_ITS | CCD ---
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 Name Role Phone DR KEATON HAMMER Attending Unavailable DWAYNE, DR GOINS Consulting Unavailable DWAYNE, DR GOINS Primary Care Unavailable DWAYNE, DR GOINS Admitting Keaton Elaine Unavailable KEATON HAMMER Primary Care Physician Nohelia Shaw Attending KEATON Elaine Referring Unavailable Keaton Hammer DO Primary Care Provider [phone] Keaton Hammer DO Attending Provider [phone] Allergies Allergy Classification Reported Allergen(s) Allergy Type Date of Onset Reaction(s) Facility (1 source) patient allergy list reviewed by nurse or physicia Propensity to adverse reactions 4 Comment:Done [employer] Other Medications Current Medications Medication Drug Class(es) Dates Sig (Normalized) Sig (Original) ALPRAZolam 0.25 mg oral tablet (4 sources) Benzodiazepine Start: 04-08-2025 End: 04-14-2025 take 1 tablet by mouth once daily as needed for anxiety atenolol 50 mg oral tablet (2 sources) beta-Adrenergic Silvestre Start: 04-08-2025 take 1 tablet by mouth once daily as needed flecainide acetate 100 mg oral tablet (16 sources) Antiarrhythmic Start: 04-08-2025 Start: 04-08-2025 End: [...] hrs Active ketoconazole 20 mg/ml medica alia prakashpoo (9 sources) Azole Antifungal Start: 11-11-2023 Ketoconazole 2 % as directed Externally twice weekly for 28 days Active Ketoconazole 2 % as directed Externally Active Omeprazole (10 sources) Proton Pump Inhibitor Start: 01-23-2024 omeprazo le Oral, Daily Start Date: 01/23/24 Status: Ordered Start: 11-11-2023 take 1 capsule by mo ut once daily take 1 capsule by mo uth once daily Omeprazole 20 MG 1 capsule 30 minutes before morning meal Orally Once a day Active triamcinolone acetonide 1 mg /ml topical cream (9 sources) Corticosteroid Start: 11-11-2023 Start: 11-06-2022 Triamcinolone Acetonide 0.1 % 1 application Externally twice daily as needed for rash for 10 days Oct, Active Completed/Discontinued Medications Medication Drug Class(es) Dates Sig (Normalized) Sig (Original) azithromycin 250 mg oral tablet (3 sources) Macrolide Antimicrobial Start: 07-22-2024 End: 04-08-2025 Azithromycin 250 mg tablet Discontinued 250 MG PO .COMPLEX 6 July 22, 2024 1:00am April 08, 2025 2:21pm 2 tabs on first day followed by 1 tab on days 2-5 doxycycline hyclate 100 mg oral capsule (9 sources) Tetracycline-class Drug Start: 03-23-2024 End: 07-22-2024 take 1 capsule by mouth twice daily Doxycycline Hyclate 100 mg capsule Discontinued 100 MG PO Twice daily 14 March 23, 2024 12:00am July 22, 2024 10:33am Start: 12-02-2023 End: 12-11-2023 take 1 capsule by mouth every twelve hours Doxycycline Monohydrate 100 mg capsule Discontinued 100 MG PO Every 12 hours 30 05December 02, 2023 12:00am December 11, 2023 8:35am itraconazole 100 mg oral capsule (8 sources) Azole Antifungal Start: 11-11-2023 End: 03-23-2024 [...] day for 7 days Mar, Active Semaglutide (5 sources) Start: 12-11-2023 End: 04-08-2025 Semaglutide (Ozempic) [...] mg / trimethoprim 160 mg oral tablet (18 sources) Dihydrofolate Reductase Inhibitor Antibacterial, Sulfonamide Antimicrobial [...] dermatitis due to detergents Episodic Anxiety disorders (17 sources) Generalized anxiety disorder; Translations: [Generalized anxiety disorder] Onset: 8 11-11-2023 Chronic Cardiac dysrhythmias (17 sources) Paroxysmal atrial fibrillation; Translations: [Paroxysmal atrial fibrillation] Onset: 4 11-11-2023 Chronic Cardiac dysrhythmias (4 sources) Palpitations; Translations: [Palpitations] 04-08-2025 Episodic Diabetes mellitus without complication (20 sources) Impaired fasting glycemia; Translations: [Impaired fasting glucose] Onset: 8 11-11-2023 Episodic Esophageal disorders (4 sources) Gastroesophageal reflux disease; Translations: [Gastro-esophageal reflux disease without esophagitis] 04-08-2025 Chronic Genitourinary symptoms and ill-defined conditions (2 sources) Other symptoms and signs involving the genitourinary system; Translations: [Bladder pain] Onset: Episodic Hyperplasia of prostate (1 source) Benign prostatic hypertrophy without outflow obstruction; Translations: [Benign prostatic hyperplasia without lower urinary tract symptoms] Onset: 4 Chronic Inflammatory conditions of male genital organs (11 sources) Acute prostatitis; Translations: [Acute prostatitis] Onset: 4 12-02-2023 Episodic Mycoses (13 sources) Pityriasis versicolor; Translations: [Pityriasis versicolor] Onset: 6 Episodic Other gastrointestinal disorders (11 sources) Irritable bowel syndrome; Translations: [Irritable bowel [...] Chronic Other nutritional; endocrine; and metabolic disorders (11 sources) Obesity; Translations: [Obesity, unspecified] 11-12-2023 Chronic Other nutritional; endocrine; and metabolic disorders (5 sources) Obesity caused by energy imbalance; Translations: [Morbid (severe) obesity due to excess calories] 11-11-2023 Chronic Other nutritional; endocrine; and metabolic disorders (6 sources) Obesity, unspecified; Translations: [Obesity, unspecified] 11-12-2023 Chronic Other upper respiratory disease (9 sources) Allergic rhinitis; Translations: [Allergic rhinitis, unspecified] Onset: 5 11-11-2023 Chronic Other upper respiratory infections (3 sources) Acute pharyngitis; Translations: [Acute pharyngitis due to other specified organisms] Onset: 5 Episodic Unclassified (1 source) Vaccine product containing only acellular Bordetella pertussis and Clostridium tetani and Corynebacterium diphtheriae antigens (medicinal product); Translations: [Hlzfacdpmi-smeqmid-zk rtussis, combined [DTP] [DtaP]] Onset: 4 Past [...] Test Name Value Interpretation Reference Range Facility Basophils Auto (Bld) [#/Vol] Ordered By: Keaton Hammer on 04-13-2025 Basophils (Bld) [#/Vol] 0.0 10 3/uL 0.0-0.1 [facility] Basophils/100 WBC Auto (Bld) Ordered By: Keaton Hammer on 04-13-2025 Basophils/100 WBC (Bld) 0.5 % 0.2-2.0 [facility] Cholesterol in LDL Calc [Mas s/Vol]Ordered By: Keaton Hammer on 04-13-2025 Cholesterol in LDL [Mass/Vol] 131.0 mg/dL [facility] Comment on above: <100 mg/dl [id number] 0-129 mg/dl NEAR OR ABOVE [id number] mg/dl BORDERLINE [id number] mg/dl HIGH>190 mg/dl VERY HIGH Cholesterol in VLDL Calc [Ma ss/Vol]Ordered By: Keaton Hammer on 04-13-2025 Cholesterol in VLDL [Mass/Vol] 11.2 mg/dL [facility] Eosinophils/100 WBC Auto (Bl d)Ordered By: Keaton Hammer on 04-13-2025 Eosinophils/100 WBC (Bld) 0.5 % Low 0.9-7.0 [facility] Erythrocyte distribution wid th Auto (RBC) [Ratio]Ordered By: Keaton Hammer on 04-13-2025 Erythrocyte distribution width (RBC) [Ratio] 13.2 % 11.0-15.0 [facility] Globulin Calc (S) [Mass/Vol] Ordered By: Keaton Hammer on 04-13-2025 Globulin (S) [Mass/Vol] 3.5 g/dL [facility] Glomerular filtration rate ( GFR) estimation in non- AmericanOrdered By: Keaton Hammer on 04-13-2025 GFR/1.73 sq M.predicted among non-blacks MDRD (S/P/Bld) [Vol rate/Area] mL/min/{1.73_m2} >=60 mL/min/1.73m 2 [facility] Glucose mean value [Mass/vol ume] in Blood Estimated from glycated hemoglobinOrdered By: Keaton Hammer on 04-13-2025 Average glucose Estimated from glycated hemoglobin (Bld) [Mass/Vol] 120 mg/dL [facility] Hematocrit Auto (Bld) [Volum e fraction]Ordered By: Keaton Hammer on 04-13-2025 Hematocrit (Bld) [Volume fraction] 47.3 % 42.0-54.0 [facility] Hemoglobin A1c percentageOrd ered By: Keaton Hammer on 04-13-2025 HbA1c (Bld) [Mass fraction] 5.8 % 4.5-6.2 [facility] Comment on above: ADA RECOMMENDED LIMI T 4.0 - 6.0ADA THERAPEUTIC TARGET < 7.0ACTION SUGGESTED> 7.0 Hemoglobin [Mass/volume] in BloodOrdered By: Keaton Hammer on 04-13-2025 Hemoglobin (Bld) [Mass/Vol] 16.1 g/dL 14.0-18.0 [facility] Laboratory - Chemistry and C hemistry - challengeOrdered By: Keaton Hammer on 04-13-2025 Albumin [Mass/Vol] 4.0 g/dL 3.4-5.0 [facility] ALP [Catalytic activity/Vol] 64 U/L 46-116 [facility] ALT [Catalytic activity/Vol] 55 U/L 16-63 [facility] AST [Catalytic activity/Vol] 21 U/L 15-37 [facility] Bilirubin [Mass/Vol] 1.7 mg/dL High 0.2-1.0 [facility] Calcium [Mass/Vol] 9.6 mg/dL 8.5-10.1 [facility] Chloride [Moles/Vol] 104 mmol/L 98-107 [facility] Cholesterol [Mass/Vol] 182 mg/dL <=200 Fi [facility] Cholesterol in HDL [Mass/Vol] 40 mg/dL 40-60 [facility] Comment on above: > or =60 mg/dl - LOW CARDIOVASCULAR RISK<40 mg/dl - HIGH CARDIOVASCULAR RISK CO2 [Moles/Vol] 29.1 mmol/L 21.0-32.0 [facility] Creatinine [Mass/Vol] 0.95 mg/dL 0.70-1.30 [facility] GFR/1.73 sq M.predicted MDRD (S/P/Bld) [Vol rate/Area] mL/min/{1.73_m2} >=60 mL/min/1.73m 2 [facility] Glucose [Mass/Vol] 111 mg/dL High 74-106 [facility] Potassium [Moles/Vol] 4.6 mmol/L 3.5-5.1 [facility] Protein [Mass/Vol] 7.5 g/dL 6.4-8.2 [facility] Sodium [Moles/Vol] 139 mmol/L 136-145 [facility] Triglyceride [Mass/Vol] 56 mg/dL <=150 [facility] TSH Qn 1.239 m[IU]/L 0.358-3.740 [facility] Urea nitrogen [Mass/Vol] 22.0 mg/dL High 7.0-18.0 [facility] Urea nitrogen/Creatinine [Mass ratio] 23.2 mg/mg [facility] Laboratory - Hematology and Cell countsOrdered By: Keaton Hammer on 04-13-2025 Immature granulocytes/100 WBC (Bld) 0.2 % 0.0-0.5 [facility] Leukocytes [#/volume] correc alia for nucleated erythrocytes in Blood by Automated counOrdered By: Keaton Hammer on 04-13-2025 WBC corrected for nucl RBC Auto (Bld) [#/Vol] 4.3 10 3/uL 4.0-11.0 [facility] Lymphocytes Auto (Bld) [#/Vo l]Ordered By: Keaton Hammer on 04-13-2025 Lymphocytes (Bld) [#/Vol] 1.2 10 3/uL 1.2-3.8 [facility] Lymphocytes/100 WBC Auto (Bl d)Ordered By: Keaton Hammer on 04-13-2025 Lymphocytes/100 WBC (Bld) 28.1 % 20.5-60.0 [facility] MCH Auto (RBC) [Entitic mass ]Ordered By: Keaton Hammer on 04-13-2025 MCH (RBC) [Entitic mass] 28.7 pg 25.9-34.0 [facility] MCHC Auto (RBC) [Mass/Vol]Or dered By: Keaton Hammer on 04-13-2025 MCHC (RBC) [Mass/Vol] 34.0 g/dL 29.9-35.2 [facility] MCV Auto (RBC) [Entitic vol] Ordered By: Keaton Hammer on 04-13-2025 MCV (RBC) [Entitic vol] 84.3 fL 80.0-94.0 [facility] Monocytes Auto (Bld) [#/Vol] Ordered By: Keaton Hammer on 04-13-2025 Monocytes (Bld) [#/Vol] 0.4 10 3/uL 0.3-0.8 [facility] Monocytes/100 WBC Auto (Bld) Ordered By: Keaton Hammer on 04-13-2025 Monocytes/100 WBC (Bld) 9.5 % 1.7-12.0 [facility] Neutrophils Auto (Bld) [#/Vo l]Ordered By: Keaton Hammer on 04-13-2025 Neutrophils (Bld) [#/Vol] 2.6 10 3/uL 1.4-6.5 [facility] Neutrophils/100 WBC Auto (Bl d)Ordered By: Keaton Hammer on 04-13-2025 Neutrophils/100 WBC (Bld) 61.2 % 43.0-75.0 [facility] No Panel InformationOrdered By: Keaton Hammer on 04-13-2025 Eosinophils # (Auto) 0.0 10 3/uL 0.0-0.7 [facility] Immature Granulocyte # (Auto) 0.01 10 3/uL 0.00-0.03 [facility] Platelet mean volume Auto (B ld) [Entitic vol]Ordered By: Keaton Hammer on 04-13-2025 Platelet mean volume (Bld) [Entitic vol] 10.2 fL 9.5-13.5 [facility] Platelets Auto (Bld) [#/Vol] Ordered By: Keaton Hammer on 04-13-2025 Platelets (Bld) [#/Vol] 194 10 3/uL 150-450 [facility] RBC Auto (Bld) [#/Vol]Ordere d By: Keaton Hammer on 04-13-2025 RBC (Bld) [#/Vol] 5.61 10 6/uL 4.70-6.10 [facility] Serum or plasma albumin/glob ulin mass ratioOrdered By: Keaton Hammer on 04-13-2025 Albumin/Globulin [Mass ratio] 1.1 {ratio} [facility] Serum or plasma anion gap de terminationOrdered By: Keaton Hammer on 04-13-2025 Anion gap [Moles/Vol] 10.5 mmol/L [facility] Serum or plasma total choles terol/high density lipoprotein (HDL) cholesterol mass ratOrdered By: Keaton Hammer on 04-13-2025 Cholesterol.total/Cholest maciel in HDL [Mass ratio] 4.6 {ratio} [facility] Comment on above: 3.3 - 4.4 LOW RISK4. 4 - 7.1 AVERAGE RISK7.1 - 11.0 MODERATE RISK>11.0 HIGH RISK [employer] 01-27-2024 Forms [id number]#1.00TIFF Normal [facility] Physician Referralon 024 Physician Referral [id number]#1.00TIFF Normal [facility] Physician Referral [id number]#1.00TIFF Normal [facility] RAD - Ultrasound Reporton RAD - Ultrasound Report [id number]#1.00TIFF Normal [facility] Screenson 01-27-2024 Screens [id number]#1.00TIFF [facility] Screens [id number]#1.00TIFF [facility] Ambulatory Visit Summaryon 0 01-23-2024 Ambulatory Visit [...] you for choosing us for your care. [facility] Patient Educationon 01-23-20 24 Patient Education Infectious Disease Prostatitis Prostatitis is [...] these instructions at home: Medicines ? Take [id number] and prescription medicines only as told by [...] Where to find more information ? [employer] [place] of Diabetes and Digestive and Kidney Diseases: (more content not included)... Normal [facility] Laboratory - Chemistry and C hemistry - challengeon 01-03-2024 Bilirubin Ql (U) Negative NEGATIVE [facility] Glucose (U) [Mass/Vol] Negative NEGATIVE [facility] Ketones Ql (U) Negative NEGATIVE [facility] pH (U) 6.0 [pH] 5.0-9.0 [facility] Specific gravity (U) [Rel density] 1.025 1.005-1.025 [facility] Urobilinogen Qn (U) 1.0 {Lachelle'U}/dL 0.2-1.0 [facility] Laboratory - Specimen inform ationon 01-03-2024 Appearance (U) CLEAR CLEAR [facility] Color (U) YELLOW YELLOW [facility] Laboratory - Urinalysison Leukocyte esterase Test strip Ql (U) Negative NEGATIVE [facility] Mucus Ql (Urine sed) NONE SEEN NONE SEEN [facility] Nitrite Ql (U) Negative NEGATIVE [facility] Protein Ql (U) Negative NEG/TRACE [facility] No Panel Informationon 01-02 Urine Bacteria NONE SEEN #/HPF NONE SEEN [facility] Urine Culture Reflexed ALREADY ORDERED [facility] Urine Occult Blood Negative NEGATIVE [facility] Urine Other Casts NONE SEEN #/LPF NONE SEEN [facility] Urine Other Crystals None Seen #/HPF None Seen [facility] Urine RBC NONE SEEN #/HPF 0-2 [facility] Urine Squamous Epithelial Cells NONE SEEN #/LPF NONE/RARE [facility] Urine WBC NONE SEEN #/HPF NONE SEEN [facility] Automated urine specific gra vity by refractometryon 11-20-2023 Specific gravity Refractometry automated (U) [Rel density] 1.025 1.005-1.025 [facility] Basophils Auto (Bld) [#/Vol] on 11-20-2023 Basophils (Bld) [#/Vol] 0.1 10 3/uL 0.0-0.1 [facility] Basophils/100 WBC Auto (Bld) on 11-20-2023 Basophils/100 WBC (Bld) 1.0 % 0.2-2.0 [facility] Bilirubin Auto test strip (U ) [Mass/Vol]on 11-20-2023 Bilirubin (U) [Mass/Vol] Negative NEGATIVE [facility] Cholesterol in LDL Calc [Mas s/Vol]on 11-20-2023 Cholesterol in LDL [Mass/Vol] 114.2 mg/dL [facility] Comment on above: <100 mg/dl [id number] 0-129 mg/dl NEAR OR ABOVE [id number] mg/dl BORDERLINE [id number] mg/dl HIGH>190 mg/dl VERY HIGH Cholesterol in VLDL Calc [Ma ss/Vol]on 11-20-2023 Cholesterol in VLDL [Mass/Vol] 13.8 mg/dL [facility] Color Auto (U)on 11-20-2023 Color (U) YELLOW YELLOW [facility] Eosinophils/100 WBC Auto (Bl d)on 11-20-2023 Eosinophils/100 WBC (Bld) 1.0 % 0.9-7.0 [facility] Erythrocyte distribution wid th Auto (RBC) [Ratio]on 11-20-2023 Erythrocyte distribution width (RBC) [Ratio] 13.5 % 11.0-15.0 [facility] Estimated glomerular filtrat ion rate (GFR) non- Americanon 11-20-2023 GFR/1.73 sq M.predicted among non-blacks MDRD (S/P/Bld) [Vol rate/Area] mL/min/{1.73_m2} >=60 [facility] Globulin Calc (S) [Mass/Vol] on 11-20-2023 Globulin (S) [Mass/Vol] 3.4 g/dL [facility] Glucose mean value [Mass/vol ume] in Blood Estimated from glycated hemoglobinon 11-20-2023 Average glucose Estimated from glycated hemoglobin (Bld) [Mass/Vol] 134 mg/dL [facility] Hematocrit Auto (Bld) [Volum e fraction]on 11-20-2023 Hematocrit (Bld) [Volume fraction] 46.7 % 42.0-54.0 [facility] Hemoglobin [Mass/volume] in Bloodon 11-20-2023 Hemoglobin (Bld) [Mass/Vol] 15.4 g/dL 14.0-18.0 [facility] Ketones Auto test strip (U) [Mass/Vol]on 11-20-2023 Ketones (U) [Mass/Vol] Negative NEGATIVE [facility] - Chemistry and C hemistry - challengeon 11-20-2023 Albumin [Mass/Vol] 3.9 g/dL 3.4-5.0 [facility] ALP [Catalytic activity/Vol] 68 U/L 46-116 [facility] ALT [Catalytic activity/Vol] 33 U/L 16-63 [facility] AST [Catalytic activity/Vol] 18 U/L 15-37 [facility] Bilirubin [Mass/Vol] 1.4 mg/dL 0.2-1.0 [facility] Calcium [Mass/Vol] 9.5 mg/dL 8.5-10.1 [facility] Chloride [Moles/Vol] 101 mmol/L 98-107 [facility] Cholesterol [Mass/Vol] 168 mg/dL <=200 [facility] Cholesterol in HDL [Mass/Vol] 40 mg/dL 40-60 [facility] Comment on above: > or =60 mg/dl - LOW CARDIOVASCULAR RISK<40 mg/dl - HIGH CARDIOVASCULAR RISK CO2 [Moles/Vol] 28.1 mmol/L 21.0-32.0 [facility] Creatinine [Mass/Vol] 1.13 mg/dL 0.70-1.30 [facility] GFR/1.73 sq M.predicted MDRD (S/P/Bld) [Vol rate/Area] mL/min/{1.73_m2} >=60 [facility] Glucose [Mass/Vol] 120 mg/dL 74-106 [facility] Potassium [Moles/Vol] 4.1 mmol/L 3.5-5.1 [facility] Protein [Mass/Vol] 7.3 g/dL 6.4-8.2 [facility] Sodium [Moles/Vol] 140 mmol/L 136-145 [facility] Triglyceride [Mass/Vol] 69 mg/dL <=150 [facility] Urea nitrogen [Mass/Vol] 19.0 mg/dL 7.0-18.0 [facility] Urea nitrogen/Creatinine [Mass ratio] 16.8 mg/mg [facility] Laboratory - Hematology and Cell countson 11-20-2023 HbA1c (Bld) [Mass fraction] 6.3 % 4.5-6.2 [facility] Comment on above: ADA RECOMMENDED LIMI T 4.0 - 6.0ADA THERAPEUTIC TARGET < 7.0ACTION SUGGESTED> 7.0 Immature granulocytes/100 WBC (Bld) 0.2 % 0.0-0.5 [facility] Leukocytes [#/volume] correc alia for nucleated erythrocytes in Blood by Automated counon 11-20-2023 WBC corrected for nucl RBC Auto (Bld) [#/Vol] 5.2 10 3/uL 4.0-11.0 [facility] Lymphocytes Auto (Bld) [#/Vo l]on 11-20-2023 Lymphocytes (Bld) [#/Vol] 1.7 10 3/uL 1.2-3.8 [facility] Lymphocytes/100 WBC Auto (Bl d)on 11-20-2023 Lymphocytes/100 WBC (Bld) 32.9 % 20.5-60.0 [facility] MCH Auto (RBC) [Entitic mass ]on 11-20-2023 MCH (RBC) [Entitic mass] 28.2 pg 25.9-34.0 [facility] MCHC Auto (RBC) [Mass/Vol]on 11-20-2023 MCHC (RBC) [Mass/Vol] 33.0 g/dL 29.9-35.2 [facility] MCV Auto (RBC) [Entitic vol] on 11-20-2023 MCV (RBC) [Entitic vol] 85.4 fL 80.0-94.0 [facility] Monocytes Auto (Bld) [#/Vol] on 11-20-2023 Monocytes (Bld) [#/Vol] 0.6 10 3/uL 0.3-0.8 [facility] Monocytes/100 WBC Auto (Bld) on 11-20-2023 Monocytes/100 WBC (Bld) 12.2 % 1.7-12.0 [facility] Neutrophils Auto (Bld) [#/Vo l]on 11-20-2023 Neutrophils (Bld) [#/Vol] 2.8 10 3/uL 1.4-6.5 [facility] Neutrophils/100 WBC Auto (Bl d)on 11-20-2023 Neutrophils/100 WBC (Bld) 52.7 % 43.0-75.0 [facility] No Panel Informationon 11-19 Eosinophils # (Auto) 0.1 10 3/uL 0.0-0.7 [facility] Immature Granulocyte # (Auto) 0.01 10 3/uL 0.00-0.03 [facility] Platelet mean volume Auto (B ld) [Entitic vol]on 11-20-2023 Platelet mean volume (Bld) [Entitic vol] 10.4 fL 9.5-13.5 [facility] Platelets Auto (Bld) [#/Vol] on 11-20-2023 Platelets (Bld) [#/Vol] 190 10 3/uL 150-450 [facility] Protein Auto test strip (U) [Mass/Vol]on 11-20-2023 Protein (U) [Mass/Vol] Negative NEG/TRACE [facility] RBC Auto (Bld) [#/Vol]on RBC (Bld) [#/Vol] 5.47 10 6/uL 4.70-6.10 [facility] Serum or plasma albumin/glob ulin mass ratioon 11-20-2023 Albumin/Globulin [Mass ratio] 1.1 {ratio} [facility] Serum or plasma anion gap de terminationon 11-20-2023 Anion gap [Moles/Vol] 15.0 mmol/L Fi [facility] Serum or plasma total choles terol/high density lipoprotein (HDL) cholesterol mass wilfred 11-20-2023 Cholesterol.total/Cholest maciel in HDL [Mass ratio] 4.2 {ratio} [facility] Comment on above: 3.3 - 4.4 LOW RISK4. 4 - 7.1 AVERAGE RISK7.1 - 11.0 MODERATE RISK>11.0 HIGH RISK Specific gravity Auto test s trip (U) [Rel density]on 11-20-2023 Specific gravity (U) [Rel density] CLEAR CLEAR [facility] Urine glucose measurement by test strip (mass/volume)on 11-20-2023 Glucose Test strip (U) [Mass/Vol] Negative NEGATIVE [facility] Urine hemoglobin detection b y automated test stripon 11-20-2023 Hemoglobin Auto test strip Ql (U) Negative NEGATIVE [facility] Urine nitrite detection by a utomated test stripon 11-20-2023 Nitrite Auto test strip Ql (U) Negative NEGATIVE [facility] Urobilinogen Auto test strip (U) [Mass/Vol]on 11-20-2023 Urobilinogen Qn (U) 0.2 {Lachelle'U}/dL 0.2-1.0 [facility] pH Auto test strip (U)on pH (U) 6.0 [pH] 5.0-9.0 [facility] CBC AUTO DIFFon 11-09-2021 BASO # 0.1 103/ul Normal 0.0-0.1 [facility] Comment on above: Performed By: #### C BC #### [facility] [address] [place] [address] Dr. Niko Sosa Basophils/100 WBC (Bld) 1.0 % Normal 0.2-2.0 [facility] Comment on above: Performed By: #### C BC #### [facility] [address] [place] [address] Dr. Niko Sosa EO # 0.1 103/ul Normal 0.0-0.7 [facility] Comment on above: Performed By: #### C BC #### [facility] [address] [place] [address] Dr. Niko Sosa Eosinophils/100 WBC (Bld) 1.2 % Normal 0.9-7.0 [facility] Comment on above: Performed By: #### C BC #### [facility] [address] [place] [address] Dr. Niko Sosa Erythrocyte distribution width (RBC) [Ratio] 13.9 % Normal 11.0-15.0 [facility] Comment on above: Performed By: #### C BC #### [facility] [address] [place] [address] Dr. Niko Sosa Hematocrit (Bld) [Volume fraction] 48.7 % Normal 42.0-54.0 [facility] Comment on above: Performed By: #### C BC #### [facility] [address] [place] [address] Dr. Niko Sosa Hemoglobin (Bld) [Mass/Vol] 16.0 g/dL Normal 14.0-18.0 [facility] Comment on above: Performed By: #### C BC #### [facility] [address] [place] [address] Dr. Niko Sosa IG # 0.04 10e3/ul Critically high 0.00-0.03 [facility] Comment on above: Performed By: #### C BC #### [facility] [address] [place] [address] Dr. Niko Sosa IG % 0.7 % Critically high 0.0-0.5 [facility] Comment on above: Performed By: #### C BC #### [facility] [address] [place] [address] Dr. Niko Sosa LYMPH # 2.1 103/ul Normal 1.2-3.8 [facility] Comment on above: Performed By: #### C BC #### [facility] [address] [place] [address] Dr. Niko Sosa Lymphocytes/100 WBC (Bld) 34.9 % Normal 20.5-60.0 [facility] Comment on above: Performed By: #### C BC #### [facility] [address] [place] [address] Dr. Niko Sosa MANUAL DIFF REQ NO Normal [facility] Comment on above: Performed By: #### C BC #### [facility] [address] [place] [address] Dr. Niko Sosa MCH (RBC) [Entitic mass] 27.9 pg Normal 25.9-34.0 [facility] Comment on above: Performed By: #### C BC #### [facility] [address] [place] [address] Dr. Niko Sosa MCHC (RBC) [Mass/Vol] 32.9 g/dL Normal 29.9-35.2 [facility] Comment on above: Performed By: #### C BC #### [facility] [address] [place] [address] Dr. Niko Sosa MCV (RBC) [Entitic vol] 84.8 fL Normal 80.0-94.0 [facility] Comment on above: Performed By: #### C BC #### [facility] [address] [place] [address] Dr. Niko Sosa MONO # 0.6 103/ul Normal 0.3-0.8 [facility] Comment on above: Performed By: #### C BC #### [facility] [address] [place] [address] Dr. Niko Sosa Monocytes/100 WBC (Bld) 10.1 % Normal 1.7-12.0 [facility] Comment on above: Performed By: #### C BC #### [facility] [address] [place] [address] Dr. Niko Sosa NEUT # 3.2 103/ul Normal 1.4-6.5 [facility] Comment on above: Performed By: #### C BC #### [facility] [address] [place] [address] Dr. Niko Sosa Neutrophils/100 WBC (Bld) 52.1 % Normal 43.0-75.0 [facility] Comment on above: Performed By: #### C BC #### [facility] [address] [place] [address] Dr. Niko Sosa Platelet mean volume (Bld) [Entitic vol] 9.7 fL Normal 9.5-13.5 [facility] Comment on above: Performed By: #### C BC #### [facility] [address] [place] [address] Dr. Niko Sosa PLT 230 103/ul Normal 150-450 [facility] Comment on above: Performed By: #### C BC #### [facility] [address] [place] [address] Dr. Niko Sosa RBC 5.74 106/ul Normal 4.70-6.10 [facility] Comment on above: Performed By: #### C BC #### [facility] [address] [place] [address] Dr. Niko Sosa WBC 6.0 103/ul Normal 4.0-11.0 [facility] Comment on above: Performed By: #### C BC #### [facility] [address] [place] [address] Dr. Niko Sosa LIPID PROFILEon 11-09-2021 CHOL-HDL RATIO NORM SEE BELOW Normal [facility] Comment on above: Result Comment: 3.3 - 4.4 LOW RISK 4.4 - 7.1 AVERAGE RISK 7.1 - 11.0 MODERATE RISK >11.0 HIGH RISK Performed By: #### L IPID, CMP #### [facility] [address] [address] [address] Niko Sosa Cholesterol [Mass/Vol] 159 mg/dL Normal <=200 Th [facility] Comment on above: Performed By: #### L IPID, CMP #### [facility] [address] [address] [address] Niko Sosa Cholesterol in HDL [Mass/Vol] 38 mg/dL Critically low 40-60 [facility] Comment on above: Performed By: #### L IPID, CMP #### [facility] [address] [address] [address] Niko Sosa Cholesterol in LDL [Mass/Vol] 109.2 mg/dL Normal [facility] Comment on above: Performed By: #### L IPID, CMP #### [facility] [address] [address] [address] Niko Sosa Cholesterol.total/Cholest maciel in HDL [Mass ratio] 4.2 {ratio} Normal [facility] Comment on above: Performed By: #### L IPID, CMP #### [facility] [address] [address] [address] Niko Sosa HDL NORMAL > or = 60 mg/dl - LOW CARDIOVASCULAR RISK <40 mg/dl - HIGH CARDIOVASCULAR RISK Normal [facility] Comment on above: Performed By: #### L IPID, CMP #### [facility] [address] [address] [address] Niko Sosa LDL CALC NORMAL SEE BELOW Normal [facility] Comment on above: Result Comment: <100 mg/dl OPTIMAL 100 - 129 mg/dl NEAR OR ABOVE OPTIMAL 130 - 159 mg/dl BORDERLINE HIGH 160 - 189 mg/dl HIGH >190 mg/dl VERY HIGH Performed By: #### L IPID, CMP #### [facility] [address] [address] [address] Niko Sosa Triglyceride [Mass/Vol] 59 mg/dL Normal <=150 T [facility] Comment on above: Performed By: #### L IPID, CMP #### [facility] [address] [place] [address] Dr. Niko Sosa VLDL CALC 11.8 mg/dL Normal [facility] Comment on above: Performed By: #### L IPID, CMP #### [facility] [address] [place] [address] Dr. Niko Sosa PROF 14(COMP METB)on 022 Albumin [Mass/Vol] 3.8 g/dL Normal 3.4-5.0 [facility] Comment on above: Performed By: #### L IPID, CMP #### [facility] [address] [place] [address] Dr. Niko Sosa Albumin/Globulin [Mass ratio] 1.1 {ratio} Normal [facility] Comment on above: Performed By: #### L IPID, CMP #### [facility] [address] [place] [address] Dr. Niko Sosa ALP [Catalytic activity/Vol] 70 U/L Normal 46-116 [facility] Comment on above: Performed By: #### L IPID, CMP #### [facility] [address] [place] [address] Dr. Niko Sosa ALT [Catalytic activity/Vol] 54 U/L Normal 16-63 [facility] Comment on above: Performed By: #### L IPID, CMP #### [facility] [address] [place] [address] Dr. Niko Sosa Anion gap [Moles/Vol] 9.0 mmol/L Normal [facility] Comment on above: Performed By: #### L IPID, CMP #### [facility] [address] [place] [address] Dr. Niko Sosa AST [Catalytic activity/Vol] 20 U/L Normal 15-37 [facility] Comment on above: Performed By: #### L IPID, CMP #### [facility] [address] [place] [address] Dr. Niko Sosa Bilirubin [Mass/Vol] 0.9 mg/dL Normal 0.2-1.3 [facility] Comment on above: Performed By: #### L IPID, CMP #### [facility] [address] [place] [address] Dr. Niko Sosa Calcium [Mass/Vol] 8.8 mg/dL Normal 8.5-10.1 [facility] Comment on above: Performed By: #### L IPID, CMP #### [facility] [address] [place] [address] Dr. Niko Sosa Chloride [Moles/Vol] 104 mmol/L Normal 98-107 [facility] Comment on above: Performed By: #### L IPID, CMP #### [facility] [address] [place] [address] Dr. Niko Sosa CO2 [Moles/Vol] 31.6 mmol/L Critically high 22.0-30.0 [facility] Comment on above: Performed By: #### L IPID, CMP #### [facility] [address] [place] [address] Dr. Niko Sosa Creatinine [Mass/Vol] 1.01 mg/dL Normal 0.66-1.25 [facility] Comment on above: Performed By: #### L IPID, CMP #### [facility] [address] [place] [address] Dr. Niko Sosa EGFR-AF SALVADOREAN >60 Normal >=60 [facility] Comment on above: Performed By: #### L IPID, CMP #### [facility] [address] [place] [address] Dr. Niko Sosa EGFR-NON AF SALVADOREAN >60 Normal >=60 [facility] Comment on above: Performed By: #### L IPID, CMP #### [facility] [address] [place] [address] Dr. Niko Sosa Globulin (S) [Mass/Vol] 3.5 g/dL Normal T [facility] Comment on above: Performed By: #### L IPID, CMP #### [facility] [address] [place] [address] Dr. Niko Sosa Glucose [Mass/Vol] 134 mg/dL Critically high 74-106 T [facility] Comment on above: Performed By: #### L IPID, CMP #### [facility] [address] [place] [address] Dr. Niko Sosa Potassium [Moles/Vol] 4.6 mmol/L Normal 3.4-5.0 [facility] Comment on above: Performed By: #### L IPID, CMP #### [facility] [address] [place] [address] Dr. Niko Sosa Protein [Mass/Vol] 7.3 g/dL Normal 6.1-8.2 [facility] Comment on above: Performed By: #### L IPID, CMP #### [facility] [address] [place] [address] Dr. Niko Sosa Sodium [Moles/Vol] 140 mmol/L Normal 137-145 [facility] Comment on above: Performed By: #### L IPID, CMP #### [facility] [address] [place] [address] Dr. Niko Sosa Urea nitrogen [Mass/Vol] 22.0 mg/dL Critically high 7.0-18 .0 [facility] Comment on above: Performed By: #### L IPID, CMP #### [facility] [address] [place] [address] Dr. Niko Sosa Urea nitrogen/Creatinine [Mass ratio] 21.8 mg/mg Normal [facility] Comment on above: Performed By: #### L IPID, CMP #### [facility] [address] [place] [address] Dr. Niko Sosa Vital Signs Date Time Vital Sign Value Performing Clinician Facility 04-08-2025 14: Body height 182.88 cm [facility] [employer] Work Phone: [facility] 04-08-2025 14: Body mass index (BMI) [Ratio] 33.5 kg/m2 [facility] [employer] Work Phone: [facility] 04-08-2025 14: Body weight 112.03 kg Keaton Ball DO Work Phone: [facility] 04-08-2025 14:24-0400 Diastolic blood pressure 66 mm[Hg] Keaton Ball DO Work Phone: [facility] 04-08-2025 14:24-0400 Heart rate 57 /min Keaton Ball DO Work Phone: [facility] 04-08-2025 14:24-0400 Respiratory rate 12 /min Keaton Ball DO Work Phone: [facility] 04-08-2025 14:24-0400 Systolic blood pressure 110 mm[Hg] Keaton Ball DO Work Phone: [facility] 01-23-2024 13:21-0400 Blood Pressure Location Nohelia Orzech [facility] 01-23-2024 13:21-0400 Diastolic blood pressure 64 mm[Hg] Nohelia Orzech [facility] 01-23-2024 13:21-0400 Heart rate 62 /min Nohelia Orzech [facility] 01-23-2024 13:21-0400 Respiratory rate 19 /min Nohelia Orzech [facility] 01-23-2024 13:21-0400 Systolic blood pressure 106 mm[Hg] Nohelia Orzech [facility] 12-31-2023 11:03-0400 Body height 182.88 cm [facility] 12-31-2023 11:03-0400 Body mass index (BMI) [Ratio] 34.3 kg/m2 [facility] 12-31-2023 11:03-0400 Body weight 114.92 kg [facility] 12-31-2023 11:03-0400 Diastolic blood pressure 75 mm[Hg] [facility] 12-31-2023 11:03-0400 Heart rate 71 /min [facility] 12-31-2023 11:03-0400 Respiratory rate 12 /min [facility] 12-31-2023 11:03-0400 Systolic blood pressure 110 mm[Hg] [facility] 12-11-2023 08:41-0400 Body height 182.88 cm [facility] 12-11-2023 08:41-0400 Body mass index (BMI) [Ratio] 35.1 kg/m2 [facility] 12-11-2023 08:41-0400 Body weight 117.53 kg [facility] 12-11-2023 08:41-0400 Diastolic blood pressure 74 mm[Hg] [facility] 12-11-2023 08:41-0400 Heart rate 65 /min [facility] 12-11-2023 08:41-0400 Respiratory rate 12 /min [facility] 12-11-2023 08:41-0400 Systolic blood pressure 113 mm[Hg] [facility] 11-12-2023 11:20-0400 Body height 182.88 cm [facility] 11-12-2023 11:20-0400 Body mass index (BMI) [Ratio] 35 kg/m2 [facility] 11-12-2023 11:20-0400 Body weight 117.19 kg [facility] 11-12-2023 11:20-0400 Diastolic blood pressure 79 mm[Hg] [facility] 11-12-2023 11:20-0400 Heart rate 73 /min [facility] 11-12-2023 11:20-0400 Respiratory rate 12 /min [facility] 11-12-2023 11:20-0400 Systolic blood pressure 113 mm[Hg] [facility] 11-06-2022 16:30-0400 Body height 182.88 cm Keaton Ball Other [facility] Other 11-06-2022 16:30-0400 Body mass index (BMI) [Ratio] 36.4 kg/m2 Keaton Ball Other [facility] Other 11-06-2022 16:30-0400 Body weight 121.75 kg Keaton Hammer Other [facility] Other 11-06-2022 16:30-0400 Diastolic blood pressure 70 mm[Hg] Keaton Hammer Other [facility] Other 11-06-2022 16:30-0400 Respiratory rate 12 /min Keaton Hammer Other [facility] Other 11-06-2022 16:30-0400 Systolic blood pressure 112 mm[Hg] Keaton Hammer Other [facility] Other Encounters Encounter Date Encounter Type Care Provider Facility Start: 04-14-2025 End: 04-14-2025 ambulatory Keaton Hammer DO Work Phone: [facility] Work Phone: Start: 04-14-2025 End: 04-14-2025 Patient encounter procedure Keaton Hammer DO -[facility] Work Phone: Start: 04-13-2025 Non-patient / Non-visit Keaton vogel DO -[facility] Work Phone: Start: 04-12-2025 End: 04-12-2025 ambulatory Keaton Hammer DO Work Phone: [facility] Work Phone: Start: 04-12-2025 End: 04-12-2025 Patient encounter procedure Keaton Hammer DO -[facility] Work Phone: Start: 04-08-2025 End: 04-08-2025 ambulatory Keaton Ball DO Work Phone: [facility] Work Phone: Start: 04-08-2025 End: 04-08-2025 Patient encounter procedure Keaton Hammer DO -[facility] Work Phone: Start: 04-08-2025 End: 04-08-2025 Patient encounter status Keaton Dwayne DO [facility] Start: 03-23-2024 End: 03-23-2024 ambulatory [facility] Work Phone: Start: 03-23-2024 End: 03-23-2024 Patient encounter procedure [facility] Work Phone: Start: 01-23-2024 End: 01-23-2024 ambulatory Nohelia X Orzech Facility:[facility] Start: 01-23-2024 End: 01-23-2024 Patient encounter procedure Nohelia X Orzech [facility] Start: 01-08-2024 ambulatory Nohelia Orzech Facility: [facility] Start: 01-03-2024 Non-patient / Non-visit [facility] Work Phone: Start: 12-31-2023 End: 12-31-2023 ambulatory [facility] Work Phone: Start: 12-31-2023 End: 12-31-2023 Patient encounter procedure [facility] Work Phone: Start: 12-11-2023 End: 12-11-2023 Patient encounter procedure [facility] Work Phone: Start: 12-02-2023 End: 12-02-2023 ambulatory [facility] Work Phone: Start: 12-02-2023 End: 12-02-2023 Patient encounter procedure [facility] Work Phone: Start: 11-20-2023 Non-patient / Non-visit [facility] Work Phone: Start: 11-12-2023 End: 11-12-2023 ambulatory [facility] Work Phone: Start: 11-12-2023 End: 11-12-2023 Encounter for general adult medical examination without abnormal findings [facility] Start: 11-12-2023 End: 11-12-2023 Patient encounter procedure [facility] Work Phone: Start: 03-21-2023 End: 03-21-2023 ambulatory Keaton Hammer Other [facility] Other Start: 03-21-2023 Telephone encounter Keaton Hammer [facility] Start: 11-06-2022 End: 11-06-2022 ambulatory Keaton Hammer Other [facility] Other Start: 11-06-2022 Office outpatient vi sit 15 minutes Keaton Hammer [facility] Start: 11-13-2021 Encounter for genera l adult medical examination without abnormal findings DR KEATON HAMMER [facility] Start: 11-09-2021 End: 11-10-[address] KEATON HAMMER Facility:[facility] Start: 11-09-2021 End: 11-10-2021 Encounter for general adult medical examination without abnormal findings DR KEATON HAMMER Facility:[facility] Start: 11-06-2021 Adult health examination Keaton Hammer Other [facility] Other Procedures Date Procedure Procedure Detail Performing Clinician Depression screening Jackson Hammer Other Plan of Treatment Date Care Activity Detail Author Bacteria identified in Urine by Culture [facility] Comprehensive metabo lic 1999 panel - Serum or Plasma [facility] enter Comprehensive metabo lic 1999 panel - Serum or Plasma [facility] enter [facility] Immunizations Immunization Date Immunization Notes Care Provider Fa cilidarlene 04-12-2025 tetanus and diphther ia toxoids, adsorbed, preservative free, for adult use (5 Lf of tetanus toxoid and 2 Lf of diphtheria toxoid) Keaton Hammer DO Work Phone: [facility] 02-22-2014 diphtheria, tetanus toxoids and acellular pertussis vaccine, unspecified formulation eKaton Hammer Other [facility] Payers Date Payer Category Payer Private Health Insurance [id number] 1985 Unknown [id number] 1985 Unknown [id number] 1985 Unknown [id number] 1959 Unknown [id number] Unknown [id number] 2.1 [id number] Social History Date Type Detail Facility Sex Assigned At [facility] Start: 1985 Sex Assigned At Male F [facility] Start: 01-23-2024 End: 04-08-2025 Tobacco smoking status Never smoked tobacco (finding) [facility] Sex Male (finding) [facility] Functional Status Date Assessment Result Facility 01-23-2024 Functional Status N/A [facility] Clinical Notes 11-06-2022 to 04-08-2025 Note Date & Type Note Facility 04-08-2025 Evaluation note Diagnosis Onset Date Resolution ELIF (generalized anxiety disorder) acute April 08, 025 2:12pm GERD (gastroesophageal reflux disease) acute April 08 2:12pm IFG (impaired fasting glucose) acute April 08 2:12pm Obesity acute April 08 025 2:12pm Palpitations acute April 08, 2025 2:12pm Paroxysmal atrial fibrillation acute April 08 2:12pm Wellness examination noneactive Augu 2024 2:12pm [facility] Work Phone: 1(393) 197-932208-13-2024 Chief complaint+Reason for visit Narrative * Chief Complaint referral for urologi st sinus infection, covid - [phone] Reason for Visit Acute prostatitis IFG (impaired fasting glucose) Obesity Prostatitis Acute bronchitis due to other specified organisms IFG (impaired fasting glucose) [facility] Work Phone: 1(102) 322-336606-14-2024 Hospital Discharge instructions Patient Education 01/23/2024 14:38:28 [...] Follow these instructions at home: Medicines Take etbc-vhp-kwvrdwx and prescription medicines only as told by [...] important. Where to find more information [employer] [place] of Diabetes and Digestive and Kidney Diseases: [...] depends on the type of prostatitis. Take pkvh-iiy-ujcuitr and prescription medicines only as told by [...] provider. Document Revised: 09/01/2020 Document Reviewed: 09/01/2020 [employer] Patient Education 2022 [employer]. 01/23/2024 14:38:28 Benign Prostatic Hyperplasia Benign Prostatic [...] urethra. Follow these instructions at home: Take zshi-gpy-yjkkhts and prescription medicines only as told by [...] provider. Document Revised: 02/13/2022 Document Reviewed: 02/13/2022 [employer] Patient Education 2022 [employer]. Follow Up Care 01/09/2024 10:22:53 With:GAYLE Shaw APRN, Nohelia Angeles, [place], URL Address: When: Unknown Comments:malika [facility] 06-14-[address] Hammer referral [...] with voice recognition artificial intelligence software, specifically [employer] and or [employer]. Substitutions may have occurred due to the [...] office with any future prostatitis symptoms Ordered: [id number] Measure Post Void residual urine and/or bladder capacity by US- non-imaging Urnls Dip Stick Auto w/o Microscopy POC 02819 3. BPH (benign prostatic hyperplasia) (N40.0: Benign [...] bladder health and compliance. We discussed alpha- silvestre medications to help with urinary symptoms as well as further evaluation of bladder and urinary with cystoscopy. Patient states that he does no (more content not included)...[facility] Comment: Electronically Signed By: GAYLE Shaw APRN, Nohelia Angeles\.aracelis\Date and Time Signed: 01/23/24 15:11 [id number] Evaluation note* Encounter Date Diagnosis Assessment Notes Treatment Notes Treatment Clinical Notes Mar, Tinea versicolor (ICD-10 - B36.0) [facility] [employer] Other 03-29-2023 Evaluation note* Encounter Date Diagnosis Assessment Notes Treatment Notes Treatment Clinical Notes Oct, Irritant contact dermatitis due to detergent (ICD-10 - L24.0) Avoid harsh chemicals or soaps. Cool compresses [facility] [employer] Other Chizp complaint+Reason for visit Narrative* Chief Complaint Wellness continued congestion diabetes medication referral for urologist Reason for Visit ELIF (generalized anx iety disorder) IFG (impaired fasting glucose) Obesity Paroxysmal atrial fibrillation Wellness examination Acute prostatitis IFG (impaired fasting glucose) Obesity Prostatitis Acute prostatitis IFG (impaired fasting glucose) Obesity Prostatitis [facility] Work Phone: Evaluation + Plan note No data available for this section [facility] Evaluation note* Diagnosis Onset Date Resolution Status ELIF (generalized anxiety disorder) acute IFG (impaired fasting glucose) acute Obesity acute Paroxysmal atrial fibrillation acute Wellness examination noneact mk [facility] Work Phone: Evaluation note* Diagnosis Onset Date Resolution Status ELIF (generalized anxiety disorder) acute IFG (impaired fasting glucose) acute Obesity acute Paroxysmal atrial fibrillation acute Wellness examination noneact mk Acute prostatitis acute IFG (impaired fasting glucose) acute Obesity acute Prostatitis noneactive Acute prostatitis acute IFG (impaired fasting glucose) acute Obesity acute Prostatitis noneactive [facility] Work Phone: Evaluation note* Diagnosis Onset Date Resolution Status Acute prostatitis acute IFG (impaired fasting glucose) acute Obesity acute Prostatitis noneactive Acute bronchitis due to other specified organisms acute IFG (impaired fasting glucose) acute [facility] Work Phone: Evaluation note* Diagnosis Onset Date Resolution Status Admit Date ELIF (generalized anxiety disorder) acute April 08 2:12pm IFG (impaired fasting glucose) acute April 08 2:12pm Obesity acute April 08 025 2:12pm Paroxysmal atrial fibrillation acute April 08 2:12pm Wellness examination noneactive Augu 2024 2:12pm [facility] Work Phone: History general Narrative - Reported* Type Description Date Medical History ELIF (generalized anxiety disorde r) Medical History Gastro-esophageal re flux disease with esophagitis, without bleeding Medical History IFG (impaired fasting glucose) Medical History Paroxysmal atrial fibrillation Medical History Tinea versicolor Medical History IBS (irritable bowel syndrome) Medical History Morbid obesity [employer] Other History general Narrative - Reported* Type Description Date [...] no changes required, Problem Status : Resolved, [employer] Other Progress note No data available for this section [facility] Reason for referral (narrative)No reason for referral [facility]: Summary Purpose Family History [...] (generalized anxiety disorder) Augus t 2024 2:12pm GERD (gastroesophageal reflux disease) A ugust 2024 2:12pm IFG (impaired fasting glucose) April 082024 2:12pm Obesity April 08, 2025 2: 12pm Palpitations April 08, 2025 2: 12pm Paroxysmal atrial fibrillation April 082024 2:12pm Wellness examination April 08, 2025 2 :12pm Chief Complaint Admit Date wellness April 08, 2025 2: 12pm Tetanus Shot April 12, 2025 4:07pm ZIO April 14, 2025 10:52am Additional Source Comments (unrecognized sect ion and content) No Status Records FoundNo Status Records Found INFORMATION SOURCE (unrecogn ized section and content) DATE CREATED AUTHOR 11/15/2021 [facility] DATE CREATED AUTHOR 'S ORGANIZ ATION 01/28/2024 [facility] REASON FOR VISIT (unrecogniz ed section and content) Param Information Care Teams (unrecognized sec tion and content) Team Status: Active Member Role Status Dates Keaton Hammer , DO Primary Care Provider Active Team Status: [...] Dates Keaton Hammer , DO Primary Care Provider Active Start: December 02, 2023 End: December 02, 2023 Jenelle Mcdaniel APRN CLIENT SERVICE CONSULTANT-C Attending Provider Act mk Start: December 02, 2023 End: December 02, 2023 Team Status: Inactive Member Role Status Dates Keaton Hammer , DO Primary Care Provide r, Attending Provider Active Start: December 11, 2023 End: December 11, 2023 Team Status: Inactive Member Role Status Bianca Hammer , DO Primary Care Provide r, [...] 2024 Team Status: Inactive Member Role Status Dates Keaton Hammer DO Primary Care Provider Active Start: April 08, 2025 End: April 08, 2025 Keaton Hammer , DO Attending Provider Active Sta rt: April 08, 2025 End: April 08, 2025 Team Status: Inactive Member Role Status Dates Keaton Hammer DO Primary Care Provider Active Start: April 12, 2025 End: April 12, 2025 Keaton Hammer , DO Attending Provider Active Sta rt: April 12, 2025 End: April 12, 2025 Team Status: Active Member Role Status Dates Keaton Hammer DO Primary Care Provider Active Start: April 13, 2025 Keaton Hammer , DO Attending Provider Active Sta rt: April 13, 2025 Team Status: Inactive Member Role Status Dates Keaton Hammer , Primary Care Provider Active Start: April 14, 2025 End: April 14, 2025 Keaton Hammer , DO Attending Provider Active Sta rt: April 14, 2025 End: April 14, 2025 Goals (unrecognized section and content) Goals [...] BE BASED ON THE PRIMARY CLINICAL RECORDS. [facility] provides no warranty or guarantee of the accuracy or completeness of information in this document.
== END 2025-04-18 07:56 | disposition home or self-care (01) ==
LOC: CARD 07:55
PROVIDERS: PCP Internal Medicine; Visit Provider Internal Medicine
DX: I48.0 Paroxysmal atrial fibrillation (principal); R01.1 Cardiac murmur, unspecified
CPT/HCPCS: 93306

== ENCOUNTER 2025-06-14 09:58 | Outpatient (OUT) | payer OTHER, SELFPAY ==
--- OUTSIDE RECORDS SUMMARY | 2025-06-14 04:56 | XMS_ITS | Continuity of Care Document ---
Author Organization [facility] Address [address] [place] [address] Phone Care Team Providers Care Chairman Of The Board Name Role Phone Dwayne Keaton MONTES Primary Care Provider Keaton Rice DO Attending Provider Laura Calvillo MD Attending Provider Care Teams Patient Care Team Team Status: Active Member Role/Relationship Status Dates Keaton Rice DO Primary Care Provider Active Visit Care Team Team Status: Inactive Member Role/Relationship Status Dates Keaton Rice DO Primary Care Provider Active Start: April 08, 2025 End: April 08lilo Rice DOAttending ProviderActiveStart: April 08, 2025 End: April 08, 2025 Visit Care Team Team Status: Inactive Member Role/Relationship Status Dates Keaton Rice DO Primary Care Provider Active Start: April 12, 2025 End: April 12lilo Rice DOAttending ProviderActiveStart: April 12, 2025 End: April 12, 2025 Visit Care Team Team Status: Active Member Role/Relationship Status Dates Keaton Rice DO Primary Care Provider Active Start: April 13, 2025 Keaton Rice DOAttending ProviderActiveStart: April 13, 2025 Visit Care Team Team Status: Inactive Member Role/Relationship Status Dates Keaton Rice DO Primary Care Provider Active Start: April 14, 2025 End: April 14lilo Rice DOAttending ProviderActiveStart: April 14, 2025 End: April 14, 2025 Patient Care Team Team Status: Active Member Role/Relationship Status Dates Keaton Rice DO Primary Care Provider Active Start: May 05, 2025 Laura Calvillo MDAttmomo ProviderActiveStart: May 05, 2025 Patient Care Team Team Status: Inactive Member Role/Relationship Status Dates Keaton Rice DO Primary Care Provider Active Start: June 14, 2025 End: June 14lilo Rice DOAttending ProviderActiveStart: June 14, 2025 End: June 14, 2025 Chief Complaint and Reason for Visit Chief Complaint Admit Date wellness April 08, 2025 2: 12pm Tetanus Shot April 12, 2025 4:07pm ZIO April 14, 2025 10:52am Amb Documentation May 05, 2025 8:55pm Nausea/Diarrhea June 14, 2025 9 :15am Reason for Visit Admit Date ELIF (generalized anxiety disorder) Augus t 2024 2:12pm GERD (gastroesophageal reflux disease) A ugust 2024 2:12pm IFG (impaired fasting glucose) April 082024 2:12pm Obesity April 08, 2025 2: 12pm Palpitations April 08, 2025 2: 12pm Paroxysmal atrial fibrillation April 082024 2:12pm Wellness examination April 08, 2025 2 :12pm Allergies, Adverse Reactions, Alerts Allergen Type Severity Reaction Last Updated Verified Status No Known Allergies Allergy Unknown June 14, 2025 9:17amYesActive Social History Smoking Status Status Start Date End Date Date of Observa tion Never smoked tobacco (finding) April 08, 2025 2:21pm Observation Status Observation Response Date of Response Legal Sex [facility] (finding) [facility] Family History Relationship Condition Age at Onset Recorded Date/T kylee father Diabetes mellitus Unknown motherDiabetes mellitusUnknown Problems Active Problems Problem Diagnosis/Recorded Date Onset Date Stat us ELIF (generalized anxiety disorder) November 11, 2023 9:1 4am Unknown Active Pityriasis versicolor November 11, 2023 9:14am Unknown Active Palpitations April 08, 2025 4:26pm Unknown Act km Abdominal cramping June 14, 2025 9:51am Unknown Active Diarrhea June 14, 2025 9:50am Unknown Ac tive IFG (impaired fasting glucose) November 11, 2023 9:14am Unknown Active Paroxysmal atrial fibrillation November 11, 2023 9:14am Unknown Active GERD (gastroesophageal reflu x disease) April 08, 2025 4:27pm Unknown Active Allergic rhinitis, unspecified November 11, 2023 9:14am January 10, 2015 Active Nausea June 14, 2025 9:50am Unknown Ac tive IBS (irritable bowel syndrome) November 11, 2023 9:14am Unknown Active Obesity November 12, 2023 10:56am Unknown Acti ve Medications Medication Status Dose Units Route Directions Qty Days Refills S tart Date Stop Date End Date Reason(s) Instructions Adherence Sulfamethoxazole-Trimethopri m 800-160 mg tablet Discontinued 1 TAB PO Twice daily 14 7 0 November 19, 2023 12:16pm December 02, 2023 12:32pmFlecainide 100 mg tabletActive0.ROUTE.PMZYTIK772Fpackq 2024 5:35pmTAKE 1 TABLET once NEEDEDComplies with drug therapy Alprazolam 0.25 mg tabletActive0.25MGPODaily as needed for jmbbglc935Kukebipxa 4th, 2025 10:12amGeneralized anxiety disorder Generalized anxiety disorderComplies with drug therapyAzithromycin 250 mg tablet Yqyjdvvdfdww786KHVI.QQECUWH381Jowwdmd 2024 11:00pmNovember 2024 9:17am2 tabs on first day followed by 1 tab on days 2-5Flecainide 100 mg tablet Bcnckoxpmkmn57TWXPYjbaj 12 hoursApril 2023 11:00pmAugust 2024 2:08pm Itraconazole 100 mg eyobzmjXwqhzckqfbbt556VDSYGhpokPrjty 2023 11:00pmAugust 2023 10:32amKetoconazole 2 % szaayikBkwebz2JLIHJSEKOYOZGUDYZP 2 WEEKSApr2023 11:00pmComplies with drug therapyOmeprazole 20 mg capsule,delayed release(DR/EC)Efvjsi72WGGFCyewcCddes 2023 11:00pmComplies with drug therapy Triamcinolone Acetonide 0.1 % abivvIqhcud3OLYTZYYZHGDRXEpqkk daily as needed November 10, 2023 11:00pmComplies with drug therapySulfamethoxazole-Trimethoprim 800-160 mg gahaaqNnamxjwmvnqe8HWGIQElkdv kfpcm3040Ugfmt 2023 11:00pmApril 2023 12:16pmFlecainide 100 mg maokiyLpbxiulcyclf323DNDEJygy as needed for oxijmculzse95997Hivjan 2024 2:02pmAugust 2024 4:30pmAlprazolam 0.25 mg tabletDiscontinued0.95AXNAVfmbl622Qulgpn 2024 11:00pmSeptember 2024 10:13amGeneralized anxiety disorder Generalized anxiety disorderAtenolol 50 mg xqmkmfXtxffc27JCMHXbdts as needed for porzbadnzhi19533Tzayhg 2024 11:00pmComplies with drug therapyFlecainide 100 mg poumxtKqxwczwdmxie374LQGLJjij as needed for dhlhqtuijrl23970Aowldq 2024 4:30pmAugust 2024 5:35pmDoxycycline Monohydrate 100 mg capsule Shwidnxjryxm926ZIJRQonvg 12 lmjsp30123Jftjq 2023 11:00pmMay 2023 7:35amAcute prostatitis Acute prostatitisSulfamethoxazole-Trimethoprim 800-160 mg ipivofYnzagyivxbel0AJM POTwice tmkya48097Svs 1st, 2024 11:00pmMay 2023 10:03amSemaglutide (Ozempic) 0.25 mg or 0.5 mg (2 mg/3 mL) pen injectorDiscontinued0.25MGSUBCUT every twnv7387Kov 1st, 2024 11:00pmAugust 2024 2:06pmfor 4 weeks Doxycycline Hyclate 100 mg axhjtrgDmzwpfiwqoee982CLPKHztap tjxrl9026QncchbMarch 22, 2024 11:00pmDecember 2023 9:33amAzithromycin 250 mg rlmmlnXxqvoypufaar402 MGPO.ECNSPKT917Mbjwqdva 2023 12:00amAugust 2024 1:21pm2 tabs on first day followed by 1 tab on days 2-5 Immunizations Immunization Event Date Not Given Reason Dose Number [employer] Selling [employer] Lot Number Reason(s) Given Vaccine Information Statement (VIS) Detail Administration Location DTap, unspecified February 22, 2014 Tetanus, Diphtheria adult, 5 Lf pres free absSeptember [id number] [facility] Relevant Diagnostic Tests and/or Laboratory Data Laboratory Results Test Collection Date/Time Result Date/Time Result Interpretation Reference Range Result Comment Performing Site Thyroid Stimulating Hormone 3rd Gen April 13, 2025 11:03am April 13, 2025 11:03am 1.239 u[iU]/mL 0.358-3.740Cholesterol/HDL RatioSept2024 11:03amSept2024 11:03am4.63.3 - 4.4 LOW RISK4.4 - 7.1 AVERAGE RISK7.1 - 11.0 MODERATE RISK>11.0 HIGH RISKAnion GapSept2024 11:03amSept2024 11:03am10.5 Estimated Average GlucoseSept2024 11:03amSept2024 11:03am 120 mg/dLBasophils # (Auto)April 13, 2025 11:03amSept2024 11:03am0.0 10 3/uL0.0-0.1Cholesterol LevelSeptember 2024 11:03amSept2024 11:67ea959 mg/dL<=200Albumin/Globulin RatioSept2024 11:03am April 13, 2025 11:03am1.1Hemoglobin V9tImpoqjmrv2024 11:03amSept2024 11:03am5.8 %4.5-6.2ADA RECOMMENDED LIMIT 4.0 - 6.0ADA THERAPEUTIC TARGET < 7.0ACTION SUGGESTED> 7.0Basophils (%) (Auto)April 13, 2025 11:03am April 13, 2025 11:03am0.5 %0.2-2.0HDL CholesterolSept2024 11:03amSept2024 11:03am40 mg/dL40-60> or =60 mg/dl - LOW CARDIOVASCULAR RISK<40 mg/dl - HIGH CARDIOVASCULAR RISKAlbuminSept2024 11:03amSept2024 11:03am4.0 g/dL3.4-5.0Eosinophils # (Auto) April 13, 2025 11:03amSept2024 11:03am0.0 10 3/uL0.0-0.7LDL Cholesterol, CalculatedSept2024 11:03amSept2024 11:03am 131.0 mg/dL<100 mg/dl XBACINP150-626 mg/dl NEAR OR ABOVE XZHPWWG445-547 mg/dl BORDERLINE HMJI828-288 mg/dl HIGH>190 mg/dl VERY HIGHAlkaline Phosphatase April 13, 2025 11:03amSeptember 2024 11:03am64 U/Y33-441Fvtfhonbbrl (%) (Auto)April 13, 2025 11:03amSept2024 11:03am0.5 %Below low normal0.9-7.0Triglycerides LevelSeptember 2024 11:03amSeptember 2024 11:03am56 mg/dL<=150Alanine Aminotransferase (ALT/SGPT)April 13, 2025 11:03amSept2024 11:03am55 U/W23-99QocyjxqvomKetglfnhl 2024 11:03amSeptember 2024 11:03am47.3 %42.0-54.0VLDL CholesterolSeptember 2024 11:03amSeptember 2024 11:03am11.2 mg/dLAspartate Amino Transf (AST/SGOT)April 13, 2025 11:03amSeptember 2024 11:03am21 U/L15-37 HemoglobinSeptember 2024 11:03amSeptember 2024 11:03am16.1 g/dL 14.0-18.0BUN/Creatinine RatioSeptember 2024 11:03amSept2024 11:03am23.2Immature Granulocyte # (Auto)April 13, 2025 11:03amSeptember 2024 11:03am0.01 10 3/uL0.00-0.03Blood Urea NitrogenSeptember 2024 11:03amSept2024 11:03am22.0 mg/dLAbove high normal7.0-18.0Immature Granulocyte % (Auto)April 13, 2025 11:03amSept2024 11:03am0.2 % 0.0-0.5Calcium LevelSeptember 2024 11:03amSept2024 11:03am9.6 mg/dL8.5-10.1Lymphocytes # (Auto)April 13, 2025 11:03amSeptember 2024 11:03am1.2 10 3/uL1.2-3.8Chloride LevelSeptember 2024 11:03amSeptember 2024 11:01zj510 mmol/O84-863Pxfkpqulijc (%) (Auto)April 13, 2025 11:03am April 13, 2025 11:03am28.1 %20.5-60.0Carbon Dioxide LevelSeptember 2024 11:03amSeptember 2024 11:03am29.1 mmol/L21.0-32.0Mean Corpuscular HemoglobinSeptember 2024 11:03amSeptember 2024 11:03am28.7 pg25.9-34.0 CreatinineSeptember 2024 11:03amSeptember 2024 11:03am0.95 mg/dL 0.70-1.30Mean Corpuscular Hemoglobin ConcentSeptember 2024 11:03amSeptember 2024 11:03am34.0 g/dL29.9-35.2Estimated GFR ()April 13, 2025 11:03amSept2024 11:03am>60>=60 mL/min/1.73m 2Mean Corpuscular VolumeSeptember 2024 11:03amSeptember 2024 11:03am84.3 fL 80.0-94.0Estimated GFR (Non- AmericanSeptember 2024 11:03amSept2024 11:03am>60>=60 mL/min/1.73m 2Monocytes # (Auto)April 13, 2025 11:03amSeptember 2024 11:03am0.4 10 3/uL0.3-0.8GlobulinSeptember 2024 11:03amSept2024 11:03am3.5 g/dLMonocytes (%) (Auto)April 13, 2025 11:03amSept2024 11:03am9.5 %1.7-12.0Glucose LevelSeptember 2024 11:03amSeptember 2024 11:72ov586 mg/dLAbove high ikmxwo23-247Ghyi Platelet VolumeSeptember 2024 11:03amSept2024 11:03am10.2 fL 9.5-13.5Potassium LevelSeptember 2024 11:03amSeptember 2024 11:03am4.6 mmol/L3.5-5.1Neutrophils # (Auto)April 13, 2025 11:03amSeptember 2024 11:03am2.6 10 3/uL1.4-6.5Sodium LevelSeptember 2024 11:03amSept2024 11:38ea646 mmol/N429-077Upnwobkpmwh (%) (Auto)April 13, 2025 11:03am April 13, 2025 11:03am61.2 %43.0-75.0Total BilirubinSeptember 2024 11:03amSeptember 2024 11:03am1.7 mg/dLAbove high normal0.2-1.0Platelet CountSeptember 2024 11:03amSeptember 2024 11:59kd876 10 3/sA933-394 Total ProteinSeptember 2024 11:03amSeptember 2024 11:03am7.5 g/dL 6.4-8.2Red Blood CountSeptember 2024 11:03amSeptember 2024 11:03am5.61 10 6/uL4.70-6.10Red Cell Distribution WidthSept2024 11:03amSeptember 2024 11:03am13.2 %11.0-15.0Corrected White Blood CountSeptember 2024 11:03amSept2024 11:03am4.3 10 3/uL4.0-11.0 Vital Signs Vital Reading Result Reference Range Collection Date/Time Height 72 [in_i] April 08, 2025 1:66fpOcurkq529.03 kgAugust 2024 1:24pmHeart Rate57 /min 60-100August 2024 1:24pmRespiratory rate12 /rzo41-88Jqpehy 2024 1:24pmBP Fyfktgyv913 mm[Hg]100-140August 2024 1:24pmBP Phdzrdwhn88 mm[Hg] 60-100August 2024 1:24pmBMI (Body Mass Index)33.5 kg/i8Uhkfrf 2024 1:40zvKnocja70 [in_i]June 14, 2025 9:83uhPfggcn808.30 kgJune 14, 2025 9:23amHeart Rate67 /sto44-540UlqbkarjJune 14, 2025 9:23amRespiratory rate12 /min 12-24Nov2024 9:23amBP Muupsdxf035 mm[Hg]100-140June 14, 2025 9:23amBP Awnxlxukd70 mm[Hg]60-100June 14, 2025 9:23amBMI (Body Mass Index) 34.2 kg/w5PmmranbgJune 14, 2025 9:23am Advance Directives Advance Directive Response Recorded Date/ Time Advance Directives No July 8:53am Insurance Providers Guarantor Chong Swan Address [address] [facility] [address]Bwobpuz Info.Home Phone: Payer Group Member ID Coverage Type Subscriber Relationship to Subscriber Effective Date Expiration Date R Id: [id number] Selvey , M Id: [id number] [address] [facility] [address] Home Phone: Encounters Encounter Location(s) Arrival/Admit Date Discharge/Departure Date Discharge/Departure Disposition Provider(s) Departed Physician/ Provider Office Visit -[facility] April 08, 2025 2:12pm April 08, 2025 3:19pm Discharged to home care or self care (routine discharge) Keaton Rice DO Departed Physician/ Provider Office Visit -[facility] April 12, 2025 4:07pm April 12, 2025 4:07pm Discharged to home care or self care (routine discharge) Keaton Rice DO Non-patient / Non-visit -[facility] April 13, 2025 12:03pm Keaton Ball , DODeparted Physician/Provider [facility] 10[facility]52amSeptember 2024 11:19amDischarged to home care or self care (routine discharge)Joy Chairez-patient / [facility]-visit- [facility] CardiologySeptember 2024 8:55pmLinda LEE Calvilloeparted Physician/Provider [facility] [place] 9:15amNovember 2024 9:52amDischarged to home care or self care (routine discharge)Keaton Rice DO Recent Diagnosis Onset Date Admit Date ELIF (generalized anxiety disorder) Unknown April 08, 2025 2:12pm GERD (gastroesophageal reflux disease) Unknown April 08, 2025 2:12pm IFG (impaired fasting glucose) Unknown A ugust 2024 2:12pm Obesity Unknown April 08 2:12pm Palpitations Unknown April 08 2:12pm Paroxysmal atrial fibrillation Unknown A ugust 2024 2:12pm Wellness examination Unknown March 2:12pm Assessments Diagnosis Onset Date Resolution Status Admit Date ELIF (generalized anxiety disorder) acuteAugust 2024 2:12pmGERD (gastroesophageal reflux disease)acuteAugust 2024 2:12pmIFG (impaired fasting glucose)acuteAugust 2024 2:12pm ObesityacuteAugust 2024 2:12pmPalpitationsacuteAugust 2024 2:12pm Paroxysmal atrial fibrillationacuteAugust 2024 2:12pmWellness examination noneactiveAugust 2024 2:12pm Plan of Treatment Author Keaton Rice [facility] SystemAuthoredArtois 2024 4:28pmI have instructed this patient on a healthy diet and exercise program. I have also reviewed age-appropriate preventive testing recommended. His A1C is between 5.7-6.5%. Instructed on low carb, high fiber diet. Instructed on routine exercise program for 30-60min three times weekly. Instructed on correlation between obesity and insulin resistance and encouraged to lose weight. Monitor A1C every 6 months. This patient is rhythm controlled. I instructed them to continue anticoagulation to prevent thromboembolic events. I instructed them to monitor their BP, HR and daily weights. I also instructed them to monitor for bleeding complications, including epistaxis, hematuria, melena and hematochezia. Pill in pocket treatment - Flecainide and Atenolol Instructed on a healthy diet and exercise routine. Instructed to continue medical treatment w/o interruption. Instructed to avoid abrupt d/c of medication due to w/d symptoms. I have instructed this patient on a low-fat, high-fiber diet.?? I have also instructed them to reduce calories, portions sizes, sweet drinks and snacks.?? I have also recommended they exercise for 30 minutes, 3-5 times weekly. They are aware of the comorbid conditions associated with excessive weight: Diabetes, HTN, Hyperlipidemia, CAD and arthritis. Instructed on healthy diet and exercise. Instructed to avoid stimulants. Schedule 7 day holter I have instructed this patient to avoid lying flat after eating.?? I have also recommended to avoid eating 2 hours prior to bedtime.?? They were also informed that smaller, frequent meals may be better tolerated. I have discussed additional treatment options for persistent symptoms, which includes: weight loss, H2 blockers and PPI. I have also instructed them to notify the office with any pain or difficulty swallowing. Continue Omeprazole without interruption Future Tests Future scheduled test information is unavailable Pending Tests Test Name Ordered Date Scheduled Date Comprehensive Metabolic Panel April 08, 2025 2:18pm [facility] echo transthoracicAugust 2024 4:41pm Future Visits Future appointment information is unavailable Future Procedures Procedure Name Ordered Date Scheduled Date Lipid Panel April 08, 2025 2:18pm Basic Metabolic PanelNov2024 9:49amComplete Blood Count Auto Diff June 14, 2025 9:49amStool Bacterial PanelNov2024 9:46am Future Medications Future medication information is unavailable Patient Instructions Patient instructions are unavailable
--- OUTSIDE RECORDS SUMMARY | 2025-06-14 10:02 | XMS_ITS | Clinical Summary ---
Author Organization [facility] Address [address] [place] [address] Care Team Providers Care Credit Operations Specialist Name Role Phone Danelle Contreras MD Primary Care Provider Unavailabl e Social History Tobacco UseTypesPacks/DayYears UsedDateSmoking Tobacco: Never AssessedSex and Gender InformationValueDate RecordedSex Assigned at BirthNot on fileLegal Sex Male12/04/2013 4:53 AM EDTGender IdentityNot on fileSexual OrientationNot on file Plan of Treatment Not on file Care Teams Team MemberRelationshipSpecialtyStart DateEnd Date Danelle Contreras MD PCP - General02/09/12
--- OUTSIDE RECORDS SUMMARY | 2025-06-14 10:02 | XMS_ITS | Clinical Summary ---
Author Organization [facility] Address [address] [place] [address] Care Team Providers Care Floating Operator Name Role Phone Unavailable Primary Care Provider Unavailabl e Social History Tobacco UseTypesPacks/DayYears UsedDateSmoking Tobacco: Never AssessedSex and Gender InformationValueDate RecordedSex Assigned at BirthNot on fileLegal Sex Male2022 10:58 PM EDTGender IdentityNot on fileSexual OrientationNot on file Last Filed Vital Signs Vital SignReadingTime TakenCommentsBlood Qsvmkqjo470/7810 8:59 AM EDT Pulse--Temperature--Respiratory Rate--Oxygen Xgqpcpjphd33%06/02/2020 8:59 AM EDT Inhaled Oxygen Concentration--Ptjcpe685 kg (263 lb)06/02/2020 8:59 AM EDTHeight 182.9 cm (6')06/02/2020 8:59 AM EDTBody Mass Index35.6710 8:59 AM EDT Plan of Treatment Health MaintenanceDue DateLast DoneCommentsDepression Crbysnhna16/29/1997 Varicella Vaccines (1 of 2 - 13+ 2-dose series)1998Hepatitis B Vaccines (1 of 3 - 19+ 3-dose series)02/07/2004Adult Lozcgza1102/06/2007HPV Vaccines (1 - 3- dose SCDM series)02/07/2012COVID-19 Vaccine (1 - 2024- season)2025 Influenza Vaccine (#1)2025Zoster Vaccines (1 of 2)2035HIB Vaccines Aged OutNo longer eligible based on patient's age to complete this topicIPV VaccinesAged OutNo longer eligible based on patient's age to complete this topic Meningococcal B VaccineAged OutNo longer eligible based on patient's age to complete this topicMeningococcal VaccineAged OutNo longer eligible based on patient's age to complete this topicPneumococcal Vaccine: Pediatrics (0 to 5 Years) and At-Risk Patients (6 to 64 Years)Aged OutNo longer eligible based on patient's age to complete this topicRotavirus VaccinesAged OutNo longer eligible based on patient's age to complete this topic Insurance
--- OUTSIDE RECORDS SUMMARY | 2025-06-14 10:04 | XMS_ITS | CCD ---
Author Organization [facility] [place] [facility] Care Team Providers Care Sales Administrator Name Role Phone DR KEATON RICE Attending Unavailable HARMAN, DR GOINS Consulting Unavailable HARMAN, DR GOINS Primary Care Unavailable HARMAN, DR GOINS Admitting Keaton Elaine Unavailable KEATON RICE Primary Care Physician Nohelia Shaw Attending KEATON Elaine Referring Unavailable Keaton Rice DO Primary Care Provider Keaton Rice DO Attending Provider Allergies Allergy ClassificationReported Allergen(s)Allergy TypeDate of OnsetReaction(s) Facility (1 source)patient allergy list reviewed by nurse or physiciaPropensity to adverse ziifqgjus07-74-4259Azjlgxt:[employer] Other Medications Current Medications MedicationDrug Class(es)DatesSig (Normalized)Sig (Original)ALPRAZolam 0.25 mg oral tablet (4 sources)BenzodiazepineStart: 04-08-2025 End: 24-75-2417oufc 1 tablet by mouth once daily as needed for anxietyatenolol 50 mg oral tablet (2 sources)beta-Adrenergic BlockerStart: 93-67-0646vmxj 1 tablet by mouth once daily as neededflecainide acetate 100 mg oral tablet (16 sources)AntiarrhythmicStart: 19-39-7487Prxhn: 04-08-2025 End: 64-23-3852agnz 1 tablet by mouth once as neededFlecainide 100 mg tablet Discontinued 100 MG PO Once as needed for palpitation April 08, 2025 5:30pm April 08, 2025 6:35pmStart: 11-11-2023 End: 01-00-4568Kdxfxhtoue 100 mg tablet Discontinued 50 MG PO Every 12 hours November 11, 2023 12:00am April 08, 2025 3:08pmStart: 59-29-5752wbwv 50 mg by mouth every twelve hoursFlecainide Active 50 MG PO Every 12 hours November 11, 2023 12:00amtake 0.5 tablet by mouth every twelve hoursFlecainide Acetate 100 MG 0.5 tablet Orally every 12 hrs Activeketoconazole 20 mg/ml medicated shampoo (9 sources)Azole AntifungalStart: 55-63-3982Xjezfbxchtev 2 % as directed Externally twice weekly for 28 days ActiveKetoconazole 2 % as directed Externally ActiveOmeprazole (10 sources)Proton Pump InhibitorStart: 52-75-4606imjahsbxsj Oral, Daily Start Date: 01/23/24 Status: OrderedStart: 83-42-5026byny 1 capsule by mouth once daily take 1 capsule by mouth once dailyOmeprazole 20 MG 1 capsule 30 minutes before morning meal Orally Once a day Activetriamcinolone acetonide 1 mg/ml topical cream (9 sources)CorticosteroidStart: 21-08-2367Gxpkh: 17-19-5119Prnwqbobmqybq Acetonide 0.1 % 1 application Externally twice daily as needed for rash for 10 days Oct, Active Completed/Discontinued Medications MedicationDrug Class(es)DatesSig (Normalized)Sig (Original)azithromycin 250 mg oral tablet (3 sources)Macrolide AntimicrobialStart: 07-22-2024 End: 02-45-1139Dzocxfrdsqku 250 mg tablet Discontinued 250 MG PO .COMPLEX 6 July 22, 2024 1:00am April 08, 2025 2:21pm 2 tabs on first day followed by 1 tab on days 2-5doxycycline hyclate 100 mg oral capsule (9 sources)Tetracycline-class DrugStart: 03-23-2024 End: 73-97-9258zolg 1 capsule by mouth twice dailyDoxycycline Hyclate 100 mg capsule Discontinued 100 MG PO Twice daily 21 02March 23, 2024 12:00am July 22, 2024 10:33amStart: 12-02-2023 End: 62-18-0345rncp 1 capsule by mouth every twelve hoursDoxycycline Monohydrate 100 mg capsule Discontinued 100 MG PO Every 12 hours 30 05December 02, 2023 12:00am December 11, 2023 8:35amitraconazole 100 mg oral capsule (8 sources)Azole AntifungalStart: 11-11-2023 End: 72-98-0660zhhv 1 capsule by mouth once dailyItraconazole 100 mg capsule Discontinued 200 MG PO Daily November 11, 2023 12:00am March 23, 2024 11:32am Start: 11-11-2023 End: 86-29-5168pqtr 200 mg by mouth once dailyItraconazole Discontinued 200 MG PO Daily November 11, 2023 12:00am March 23, 2024 11:32amStart: 71-29-8410waoj 2 capsules by mouth every twenty-four hoursItraconazole 100 MG 2 capsules after meals Orally Once a day for 7 days Mar, ActiveSemaglutide (5 sources)Start: 12-11-2023 End: 44-20-8712Mtwgccubqdm (Ozempic) 0.25 mg or 0.5 mg (2 mg/3 mL) pen injector Discontinued 0.25 MG SUBCUT every week 3 December 11, 2023 12:00am April 08, 2025 3:06pm for 4 weeksStart: 24-09-3820Uzpcbnemxxn (Ozempic) 0.25 mg or 0.5 mg (2 mg/3 mL) pen injector Active 0.25 MG SUBCUT every week December 11, 2023 12:00am for 4 weekssulfamethoxazole 800 mg / trimethoprim 160 mg oral tablet (18 sources)Dihydrofolate Reductase Inhibitor Antibacterial, Sulfonamide AntimicrobialStart: 12-11-2023 End: 33-52-5562ceat 1 tablet by mouth twice dailySulfamethoxazole-Trimethoprim 800-160 mg tablet Discontinued 1 TAB PO Twice daily 56 December 11, 2023 12:00am December 31, 2023 11:03amStart: 11-12-2023 End: 18-62-9469zhfj 1 tablet by mouth twice dailySulfamethoxazole-Trimethoprim 800-160 mg tablet Discontinued 1 TAB PO Twice daily 14 November 19, 2023 1:16pm December 02, 2023 1:32pm Problems Active Problems Problem ClassificationProblemDateDocumented DateEpisodic/ChronicAcute bronchitis (4 sources)Acute bronchitis; Translations: [Acute bronchitis due to other specified organisms]68-75-0550IfshlanbKxmjjrau reactions (1 source)Irritant contact dermatitis due to detergentsEpisodicAnxiety disorders (17 sources)Generalized anxiety disorder; Translations: [Generalized anxiety disorder]Onset: 788831-50-9864OumkvjoSgbkcdx dysrhythmias (17 sources)Paroxysmal atrial fibrillation; Translations: [Paroxysmal atrial fibrillation]Onset: 022190-49-8392JvhrggkWqqsylb dysrhythmias (4 sources)Palpitations; Translations: [Palpitations]28-88-6873KcvmopnpKhkxqlat mellitus without complication (20 sources)Impaired fasting glycemia; Translations: [Impaired fasting glucose] Onset: 732374-18-3792ZrtimdbjMfkrfftive disorders (4 sources)Gastroesophageal reflux disease; Translations: [Gastro-esophageal reflux disease without esophagitis]95-40-5363TtvbsxuGatiwhhsawbnp symptoms and ill-defined conditions (2 sources)Other symptoms and signs involving the genitourinary system; Translations: [Bladder pain]Onset: 37-24-9065WjxecoyxRitwdcldpxz of prostate (1 source)Benign prostatic hypertrophy without outflow obstruction; Translations: [Benign prostatic hyperplasia without lower urinary tract symptoms]Onset: 18-50-0093YhabwwsRkoozpqeoiwr conditions of male genital organs (11 sources)Acute prostatitis; Translations: [Acute prostatitis]Onset: 757103-68-8959PqkocbogTwvanex (13 sources)Pityriasis versicolor; Translations: [Pityriasis versicolor]Onset: 61-68-8895AbihxyaoZryis gastrointestinal disorders (11 sources)Irritable bowel syndrome; Translations: [Irritable bowel syndrome without diarrhea]70-61-5719XojglumAfmvu nervous system disorders (1 source)Nerve root lwmtawjo70-69-0654ChhiggtQhzqj nutritional; endocrine; and metabolic disorders (3 sources)Morbid obesity; Translations: [Morbid (severe) obesity due to excess calories]ChronicOther nutritional; endocrine; and metabolic disorders (1 source)Body mass index 30+ - obesity; Translations: [Body mass index 36.0- 36.9, adult]Onset: 43-82-7974CvdvfrbSirhe nutritional; endocrine; and metabolic disorders (1 source)Obese class II; Translations: [Body mass index (BMI) 35.0-35.9, adult] Onset: 30-66-6487MjxxtfbUtswl nutritional; endocrine; and metabolic disorders (2 sources)Obese class I; Translations: [Body mass index 34.0-34.9, adult]Onset: 25-66-3179OxzjrmjPykbw nutritional; endocrine; and metabolic disorders (1 source)Simple obesity ; Translations: [Other obesity due to excess calories] Onset: 57-81-2295JrudqdzIgump nutritional; endocrine; and metabolic disorders (11 sources)Obesity; Translations: [Obesity, unspecified]65-49-0921OxbhpjkFxfld nutritional; endocrine; and metabolic disorders (5 sources)Obesity caused by energy imbalance; Translations: [Morbid (severe) obesity due to excess calories]33-32-1692KrtthulLpesk nutritional; endocrine; and metabolic disorders (6 sources)Obesity, unspecified; Translations: [Obesity, unspecified]11-12-2023 ChronicOther upper respiratory disease (9 sources)Allergic rhinitis; Translations: [Allergic rhinitis, unspecified] Onset: 865263-83-6086ElsdfykObozl upper respiratory infections (3 sources)Acute pharyngitis; Translations: [Acute pharyngitis due to other specified organisms]Onset: 16-94-1139DcqqgixqRniightteuon (1 source)Vaccine product containing only acellular Bordetella pertussis and Clostridium tetani and Corynebacterium diphtheriae antigens (medicinal product); Translations: [Xffzxdvmpc-pedsmxu-owywzvcoa, combined [DTP] [DtaP]]Onset: 02-22-2014 Past or Other Problems Problem ClassificationProblemDateDocumented DateEpisodic/ChronicBacterial infection; unspecified site (1 source)Bacterial infectious disease; Translations: [Bacterial infection, unspecified, in conditions classified elsewhere and of unspecified site]Onset: 44-80-3790XyzhhcrkVdqyvpceat associated with dizziness or vertigo (1 source)Dizziness and giddiness; Translations: [Dizziness and giddiness]Onset: 86-46-4259DrtjdryzEhcqopxbdt disorders (2 sources)Esophageal disorders; Translations: [Gastro-esophageal reflux disease with esophagitis, without bleeding]Malaise and fatigue (1 source)Malaise and fatigue; Translations: [Other malaise and fatigue]Onset: 46-31-6761UhfnnmteMwntww and vomiting (1 source)Nausea; Translations: [Nausea]Onset: 77-57-2924ZrxvsxfnTrquv connective tissue disease (1 source)Nontraumatic rupture of rotator cuff of left shoulder; Translations: [Unspecified rotator cuff tearor rupture of left shoulder, not specified as traumatic]Onset: 80-37-3293IxjjhfhgMofbz lower respiratory disease (1 source)Dyspnea; Translations: [Dyspnea, unspecified]Onset: 06-42-5225Gzzakibo Spondylosis; intervertebral disc disorders; other back problems (6 sources)Nerve root disorder; Translations: [Radiculopathy, site unspecified] Onset: 622196-80-4550LqqanmgfKjlhbfs and strains (1 source)Neck sprain; Translations: [Neck sprain and strain]Onset: 09-20-2013 EpisodicUnclassified (1 source)Exposure to acute respiratory syndrome coronavirus 2; Translations: [Contact with and (suspected) exposure to COVID-19] Resolved: 52-03-5425Fzlpefs tract infections (1 source)Urethritis; Translations: [Other urethritis]Onset: 56-97-2738Bshaiwqo Results Test NameValueInterpretationReference RangeFacilityBasophils Auto (Bld) [#/Vol] Ordered By: Keaton Rice on 35-35-8667Dwjcfyots (Bld) [#/Vol]0.0 10 3/uL0.0-0.1 [facility] OhioBasophils/100 WBC Auto (Bld)Ordered By: Keaton Rice on 76-62-0373Ivtdbadzp/100 WBC (Bld)0.5 %0.2-2.0[facility] OhioCholesterol in LDL Calc [Mass/Vol]Ordered By: Keaton Rice on 56-09-4927Jzgvecoonsh in LDL [Mass/Vol]131.0 mg/dLSelect [facility]ty Hospital [facility] Southeast OhioComment on above:<100 mg/dl BTDAANW040-086 mg/dl NEAR OR ABOVE DQPIHWV086- 159 mg/dl BORDERLINE KNUJ326-374 mg/dl HIGH>190 mg/dl VERY HIGHCholesterol in VLDL Calc [Mass/Vol]Ordered By: Keaton Rice on 59-35-1022Jifkerwizfn in VLDL [Mass/Vol]11.2 mg/dLSelect [facility]ty Hospital [facility] Southeast OhioEosinophils/100 WBC Auto (Bld)Ordered By: Keaton Rice on 01-55-3052Bxurmchgucf/100 WBC (Bld)0.5 %Low 0.9-7.0[facility] OhioErythrocyte distribution width Auto (RBC) [Ratio]Ordered By: Keaton Rice on 45-61-1741Uqpjjyyvzdw distribution width (RBC) [Ratio]13.2 %11.0-15.0[facility] OhioGlobulin Calc (S) [Mass/Vol]Ordered By: Keaton Rice on 93-65-1432Dvzfvxve (S) [Mass/Vol]3.5 g/dLSelect Medical Specialty Hospital [facility] Southeast OhioGlomerular filtration rate (GFR) estimation in non- AmericanOrdered By: Keaton Rice on 04-13-2025 GFR/1.73 sq M.predicted among non-blacks MDRD (S/P/Bld) [Vol rate/Area] mL/min/{1.73_m2}>=60 mL/min/1.73m 2FUniversity Hospitals Elyria Medical CenterGlucose mean value [Mass/volume] in Blood Estimated from glycated hemoglobinOrdered By: Keaton Rice on 56-50-2919Qxqltpn glucose Estimated from glycated hemoglobin (Bld) [Mass/Vol]120 mg/dLSelect Medical Specialty Hospital [facility] Southeast OhioHematocrit Auto (Bld) [Volume fraction]Ordered By: Keaton Rice on 75-84-5124Gxwcdvblnx (Bld) [Volume fraction]47.3 %42.0-54.0[facility] OhioHemoglobin A1c percentageOrdered By: Keaton Rice on 50-01-8950QvL1x (Bld) [Mass fraction]5.8 %4.5-6.2FUniversity Hospitals Elyria Medical CenterComment on above:ADA RECOMMENDED LIMIT 4.0 - 6.0ADA THERAPEUTIC TARGET < 7.0ACTION SUGGESTED> 7.0Hemoglobin [Mass/volume] in BloodOrdered By: Keaton Rice on 53-60-8014Ccmxfgkbxw (Bld) [Mass/Vol]16.1 g/dL14.0-18.0[facility] OhioLaboratory - Chemistry and Chemistry - challengeOrdered By: Keaton Rice on 04-13-2025 Albumin [Mass/Vol]4.0 g/dL3.4-5.0[facility] OhioALP [Catalytic activity/Vol]64 U/R86-503ArmsylfkkSelect Medical Specialty Hospital - Southeast OhioALT [Catalytic activity/Vol]55 U/H14-06XzrcracqrSelect Medical Specialty Hospital - Southeast OhioAST [Catalytic activity/Vol]21 U/I87-09YmqdiygmtSelect Medical Specialty Hospital [facility] Southeast OhioBilirubin [Mass/Vol]1.7 mg/dLHigh0.2-1.0[facility] OhioCalcium [Mass/Vol]9.6 mg/dL 8.5-10.1FUniversity Hospitals Elyria Medical CenterChloride [Moles/Vol]104 mmol/L98-107 [facility] OhioCholesterol [Mass/Vol]182 mg/dL<=200[facility] OhioCholesterol in HDL [Mass/Vol]40 mg/kZ81-58PecmdxbncSelect Medical Specialty Hospital - Southeast OhioComment on above:> or =60 mg/dl - LOW CARDIOVASCULAR RISK<40 mg/dl - HIGH CARDIOVASCULAR RISKCO2 [Moles/Vol]29.1 mmol/L21.0-32.0 [facility] OhioCreatinine [Mass/Vol]0.95 mg/dL0.70-1.30 [facility] OhioGFR/1.73 sq M.predicted MDRD (S/P/Bld) [Vol rate/Area]mL/min/{1.73_m2}>=60 mL/min/1.73m 2FUniversity Hospitals Elyria Medical Center Glucose [Mass/Vol]111 mg/iLEnld61-036OwizuhosySelect Medical Specialty Hospital [facility] Southeast OhioPotassium [Moles/Vol]4.6 mmol/L3.5-5.1FUniversity Hospitals Elyria Medical CenterProtein [Mass/Vol] 7.5 g/dL6.4-8.2FThe University of Toledo Medical Centerodium [Moles/Vol]139 mmol/L 136-145[facility] OhioTriglyceride [Mass/Vol]56 mg/dL<=150 [facility] OhioTSH Qn1.239 m[IU]/L0.358-3.740[facility] OhioUrea nitrogen [Mass/Vol]22.0 mg/dLHigh7.0-18.0[facility] OhioUrea nitrogen/Creatinine [Mass ratio]23.2 mg/mgSelect Medical Specialty Hospital - Southeast OhioLaboratory - Hematology and Cell countsOrdered By: Keaton Rice on 13-28-3143Ooypdmkg granulocytes/100 WBC (Bld)0.2 %0.0-0.5 [facility] OhioLeukocytes [#/volume] corrected for nucleated erythrocytes in Blood by Automated counOrdered By: Keaton Rice on 04-13-2025 WBC corrected for nucl RBC Auto (Bld) [#/Vol]4.3 10 3/uL4.0-11.0[facility] OhioLymphocytes Auto (Bld) [#/Vol]Ordered By: Keaton Rice on 67-53-7093Yilmxqdjuyf (Bld) [#/Vol]1.2 10 3/uL1.2-3.8[facility] OhioLymphocytes/100 WBC Auto (Bld)Ordered By: Keaton Rice on 32-59-7172Lyekgxsqykq/100 WBC (Bld)28.1 %20.5-60.0[facility] CenterH Auto (RBC) [Entitic mass]Ordered By: Keaton Rice on 08-40-9189UQP (RBC) [Entitic mass]28.7 pg25.9-34.0[facility] OhioMCHC Auto (RBC) [Mass/Vol]Ordered By: Keaton Rice on 30-26-7792SZCN (RBC) [Mass/Vol]34.0 g/dL29.9-35.2FUniversity Hospitals Elyria Medical CenterMCV Auto (RBC) [Entitic vol] Ordered By: Keaton Rice on 16-40-8450YRH (RBC) [Entitic vol]84.3 fL80.0-94.0 [facility] OhioMonocytes Auto (Bld) [#/Vol]Ordered By: Keaton Rice on 24-66-4025Lvvednrjp (Bld) [#/Vol]0.4 10 3/uL0.3-0.8[facility] OhioMonocytes/100 WBC Auto (Bld)Ordered By: Keaton Rice on 64-79-4565Yifiwwatu/100 WBC (Bld)9.5 %1.7-12.0[facility] Neutrophils Auto (Bld) [#/Vol]Ordered By: Keaton Rice on 99-55-1817Kypczldzjuv (Bld) [#/Vol]2.6 10 3/uL1.4-6.5FUniversity Hospitals Elyria Medical CenterNeutrophils/100 WBC Auto (Bld)Ordered By: Keaton Rice on 97-78-5289Jizmdgkotvk/100 WBC (Bld) 61.2 %43.0-75.0[facility] OhioNo Panel InformationOrdered By: Keaton Rice on 28-47-6614Egksugwakpb # (Auto)0.0 10 3/uL0.0-0.7FUniversity Hospitals Elyria Medical CenterImmature Granulocyte # (Auto)0.01 10 3/uL0.00-0.03 [facility] OhioPlatelet mean volume Auto (Bld) [Entitic vol] Ordered By: Keaton Rice on 99-88-0180Kvwixmti mean volume (Bld) [Entitic vol] 10.2 fL9.5-13.5FUniversity Hospitals Elyria Medical CenterPlatelets Auto (Bld) [#/Vol] Ordered By: Keaton Rice on 91-23-4187Oeyoirdni (Bld) [#/Vol]194 10 3/fW441-932 [facility] OhioRBC Auto (Bld) [#/Vol]Ordered By: Keaton Rice on 83-02-8741SEZ (Bld) [#/Vol]5.61 10 6/uL4.70-6.10[facility] Hospitalerum or plasma albumin/globulin mass ratioOrdered By: Keaton Rice on 01-84-5217Tqqnwcf/Globulin [Mass ratio]1.1 {ratio}[facility] Hospitalerum or plasma anion gap determinationOrdered By: Keaton Rice on 24-91-3695Gggmu gap [Moles/Vol]10.5 mmol/LFThe University of Toledo Medical Centererum or plasma total cholesterol/high density lipoprotein (HDL) cholesterol mass rat Ordered By: Keaton Rice on 25-43-0371Uhahxvgzwdv.total/Cholesterol in HDL [Mass ratio]4.6 {ratio}[facility] OhioComment on above:3.3 - 4.4 LOW RISK4.4 - 7.1 AVERAGE RISK7.1 - 11.0 MODERATE RISK>11.0 HIGH RISKFormson [id number]#1.00TIVERTONCeciliaChillicothe HospitalPhysician Referralon 22-71-5160Wivfhpyvk Referral [id number]#1.00[facility] HospitalPhysician [id number]#1.00[facility] LimaRAD - Ultrasound Reporton 65-83-4474ADG - Ultrasound [id number]#1.00[facility] Hospitalcreenson 44-11-2801Kdqsfna [id number]#1.00[facility]oples [id number]#1.00[facility] HospitalAmbulatory Visit Summaryon 34-20-1337Tdrheudlqz Visit Summary LEO HOUGH :1985 Visit Date:01/23/2024 Ambulatory Visit Instructions Your Diagnosis Prostatitis Your Care Team Attending Physician - GAYLE Shaw APRN, [place] [facility] Primary Care Physician - KEATON RICE DO Referring Physician - KEATON RICE DO This Is Your Medications List Contact [...] you for choosing us for your care. [facility] Educationon 01-23-2024 Patient EducationInfectious Disease Prostatitis Prostatitis is swelling or inflammation [...] tone in the area between the hip bones(pelvic area), around the prostate. This type is also known as a pelvic floor disorder. ? Chronic bacterial prostatitis. This type usually results from an acute bacterial infection in theprostate gland that keeps coming back or has [...] with a bladder infection, high fever, and chills.This is the least common type of prostatitis. [...] of your body that drains urine from thebladder (urethra). How is this treated? Treatment for [...] these instructions at home: Medicines ? Take iytl-ext-utewlpt and prescription medicines only as told by [...] a sitz bath, sit in warm water thatis deep enough to cover your hips and [...] Where to find more information ? National [place] of Diabetes and Digestive and Kidney Diseases: (more content not included)...NormalFisher [facility] Pr[facility] HospitalLaboratory - Chemistry and Chemistry - challengeon 07-26-0839Hydhyeqrn Ql (U)NegativeNEGSelect Medical Specialty Hospital - YoungstownGlucose (U) [Mass/Vol]NegativeNEGATIVESelect Medical Specialty Hospital - Southeast OhioKetones Ql (U)NegativeNEGATIVESelect Medical Specialty Hospital - Southeast OhiopH (U)6.0 [pH]5.0-9.0[facility] Hospitalpecific gravity (U) [Rel density]1.0251.005-1.025[facility] OhioUrobilinogen Qn (U)1.0 {Lachelle'U}/dL0.2-1.0[facility] OhioLaboratory - Specimen informationon 55-09-4996Fqrewxzkbb (U)CLEARCLEARFUniversity Hospitals Elyria Medical CenterColor (U)YELLOWYELLOWSelect Medical Specialty Hospital - Southeast OhioLaboratory - Urinalysison 04-40-3568Nwtnmngyi esterase Test strip Ql (U)NegativeNEGATIVE [facility] OhioMucus Ql (Urine sed)NONE SEENNONE [facility] HospitalNitrite Ql (U)NegativeNEGATIVESelect Medical Specialty Hospital - Southeast OhioProtein Ql (U)NegativeNEG/TRACESelect Medical Specialty Hospital - Southeast OhioNo Panel Informationon 35-83-8499Wnkak BacteriaNONE SEEN #/HPFNONE [facility] HospitalUrine Culture ReflexedALREADY ORDEREDSelect Medical Specialty Hospital [facility] Southeast OhioUrine Occult BloodNegativeNEGATIVESelect Medical Specialty Hospital [facility] Southeast OhioUrine Other CastsNONE SEEN #/LPFNONE [facility] HospitalUrine Other CrystalsNone Seen #/HPFNone [facility] HospitalUrine RBCNONE SEEN #/HPF0-2FUniversity Hospitals Elyria Medical CenterUrine Squamous Epithelial Cells NONE SEEN #/LPFNONE/RARESelect Medical Specialty Hospital - Southeast OhioUrine WBCNONE SEEN #/HPFNONE [facility] HospitalAutomated urine specific gravity by refractometryon 17-68-7071Kriaikqi gravity Refractometry automated (U) [Rel density]1.0251.005-1.025[facility] OhioBasophils Auto (Bld) [#/Vol]on 61-26-5825Kwcdbdfrb (Bld) [#/Vol]0.1 10 3/uL0.0-0.1FUniversity Hospitals Elyria Medical CenterBasophils/100 WBC Auto (Bld)on 81-61-9234Sdkoozuxi/100 WBC (Bld) 1.0 %0.2-2.0[facility] OhioBilirubin Auto test strip (U) [Mass/Vol]on 08-23-3234Ckryxfmuc (U) [Mass/Vol]NegativeNEGATIVESelect Medical Specialty Hospital - Southeast OhioCholesterol in LDL Calc [Mass/Vol]on 11-20-2023 Cholesterol in LDL [Mass/Vol]114.2 mg/dLSelect Medical Specialty Hospital - Southeast OhioComment on above:<100 mg/dl AFBSJLV674-517 mg/dl NEAR OR ABOVE UYFDEGG780-476 mg/dl BORDERLINE JKQQ254-509 mg/dl HIGH>190 mg/dl VERY HIGHCholesterol in VLDL Calc [Mass/Vol]on 02-32-4480Sspjsplujps in VLDL [Mass/Vol]13.8 mg/dLSelect Medical Specialty Hospital - Southeast OhioColor Auto (U)on 03-44-3738Gnwos (U)YELLOWYELLOWSelect Medical Specialty Hospital - Southeast OhioEosinophils/100 WBC Auto (Bld)on 11-20-2023 Eosinophils/100 WBC (Bld)1.0 %0.9-7.0[facility] Erythrocyte distribution width Auto (RBC) [Ratio]on 85-00-6561Hrszbbsusji distribution width (RBC) [Ratio]13.5 %11.0-15.0[facility] [place] Estimated glomerular filtration rate (GFR) non- Americanon 11-20-2023 GFR/1.73 sq M.predicted among non-blacks MDRD (S/P/Bld) [Vol rate/Area] mL/min/{1.73_m2}>=60[facility] OhioGlobulin Calc (S) [Mass/Vol]on 73-75-5742Pucbewuk (S) [Mass/Vol]3.4 g/dLSelect Medical Specialty Hospital - Southeast OhioGlucose mean value [Mass/volume] in Blood Estimated from glycated hemoglobinon 57-06-5345Mqalpgh glucose Estimated from glycated hemoglobin (Bld) [Mass/Vol]134 mg/dLSelect Medical Specialty Hospital - Southeast OhioHematocrit Auto (Bld) [Volume fraction]on 21-90-2005Svdorbzshm (Bld) [Volume fraction]46.7 %42.0-54.0 [facility] OhioHemoglobin [Mass/volume] in Bloodon 11-20-2023 Hemoglobin (Bld) [Mass/Vol]15.4 g/dL14.0-18.0[facility] Ketones Auto test strip (U) [Mass/Vol]on 33-70-7780Jcraubl (U) [Mass/Vol] NegativeNEGATIVESelect Medical Specialty Hospital - Southeast OhioLaboratory - Chemistry and Chemistry - challengeon 51-08-3379Hyoijbz [Mass/Vol]3.9 g/dL3.4-5.0[facility] OhioALP [Catalytic activity/Vol]68 U/P63-729XyhyzetbdSelect Medical Specialty Hospital - Southeast OhioALT [Catalytic activity/Vol]33 U/M40-34YuqllbxiwSelect Medical Specialty Hospital - Southeast OhioAST [Catalytic activity/Vol]18 U/L04-52HgunjfitgSelect Medical [facility]ilirubin [Mass/Vol]1.4 mg/dL0.2-1.0[facility] Calcium [Mass/Vol]9.5 mg/dL8.5-10.1FUniversity Hospitals Elyria Medical CenterChloride [Moles/Vol]101 mmol/U45-088GbreqcxtjSelect Medical [facility]ty [facility] OhioCholesterol [Mass/Vol]168 mg/dL<=200[facility] OhioCholesterol in HDL [Mass/Vol]40 mg/fQ81-09XgrlyrzyhSelect Medical Specialty Hospital [facility] Southeast OhioComment on above:> or =60 mg/dl - LOW CARDIOVASCULAR RISK<40 mg/dl - HIGH CARDIOVASCULAR RISKCO2 [Moles/Vol]28.1 mmol/L21.0-32.0[facility] [place]Creatinine [Mass/Vol]1.13 mg/dL0.70-1.30[facility] OhioGFR/1.73 sq M.predicted MDRD (S/P/Bld) [Vol rate/Area]mL/min/{1.73_m2}>=60[facility] OhioGlucose [Mass/Vol]120 mg/qQ42-142FsnqwxwmpSelect Medical [facility] [place] Potassium [Moles/Vol]4.1 mmol/L3.5-5.1FUniversity Hospitals Elyria Medical CenterProtein [Mass/Vol]7.3 g/dL6.4-8.2FThe University of Toledo Medical Centerodium [Moles/Vol]140 mmol/I725-837MwphqvsaaSelect Medical [facility] OhioTriglyceride [Mass/Vol]69 mg/dL <=150[facility] OhioUrea nitrogen [Mass/Vol]19.0 mg/dL7.0-18.0 [facility] OhioUrea nitrogen/Creatinine [Mass ratio]16.8 mg/mg [facility] OhioLaboratory - Hematology and Cell countson 98-96-9267VeH4s (Bld) [Mass fraction]6.3 %4.5-6.2FUniversity Hospitals Elyria Medical CenterComment on above:ADA RECOMMENDED LIMIT 4.0 - 6.0ADA THERAPEUTIC TARGET < 7.0ACTION SUGGESTED> 7.0Immature granulocytes/100 WBC (Bld)0.2 %0.0-0.5FUniversity Hospitals Elyria Medical CenterLeukocytes [#/volume] corrected for nucleated erythrocytes in Blood by Automated counon 64-99-3067BKM corrected for nucl RBC Auto (Bld) [#/Vol]5.2 10 3/uL4.0-11.0[facility] Lymphocytes Auto (Bld) [#/Vol]on 21-47-7485Rwnloafsbxv (Bld) [#/Vol]1.7 10 3/uL 1.2-3.8[facility] OhioLymphocytes/100 WBC Auto (Bld)on 63-77-7404Zqseegocbac/100 WBC (Bld)32.9 %20.5-60.0[facility] OhioMCH Auto (RBC) [Entitic mass]on 15-31-2648LOR (RBC) [Entitic mass]28.2 pg 25.9-34.0[facility] CenterHC Auto (RBC) [Mass/Vol]on 96-04-3988NEZS (RBC) [Mass/Vol]33.0 g/dL29.9-35.2FUniversity Hospitals Elyria Medical CenterMCV Auto (RBC) [Entitic vol]on 09-85-9641CEI (RBC) [Entitic vol]85.4 fL 80.0-94.0[facility] OhioMonocytes Auto (Bld) [#/Vol]on 90-61-1751Ahjlsoaiq (Bld) [#/Vol]0.6 10 3/uL0.3-0.8[facility] OhioMonocytes/100 WBC Auto (Bld)on 11-59-9568Qdzcmmvxf/100 WBC (Bld)12.2 % 1.7-12.0[facility] OhioNeutrophils Auto (Bld) [#/Vol]on 43-32-2495Gztuuxvsckw (Bld) [#/Vol]2.8 10 3/uL1.4-6.5FUniversity Hospitals Elyria Medical CenterNeutrophils/100 WBC Auto (Bld)on 18-45-8778Tlluhievble/100 WBC (Bld)52.7 % 43.0-75.0[facility] [place]No Panel Informationon 11-20-2023 Eosinophils # (Auto)0.1 10 3/uL0.0-0.7FUniversity Hospitals Elyria Medical CenterImmature Granulocyte # (Auto)0.01 10 3/uL0.00-0.03[facility] [place] Platelet mean volume Auto (Bld) [Entitic vol]on 15-17-0223Yxvaphjt mean volume (Bld) [Entitic vol]10.4 fL9.5-13.5FUniversity Hospitals Elyria Medical CenterPlatelets Auto (Bld) [#/Vol]on 66-02-7479Nasszyrne (Bld) [#/Vol]190 10 3/dK488-050 [facility] [place]Protein Auto test strip (U) [Mass/Vol]on 68-38-6167Hliwybj (U) [Mass/Vol]NegativeNEG/TRACESelect Medical Specialty Hospital [facility] OhioRBC Auto (Bld) [#/Vol]on 33-66-2275KRI (Bld) [#/Vol]5.47 10 6/uL4.70-6.10 [facility] Hospitalerum or plasma albumin/globulin mass ratioon 99-00-8458Mwdbzvw/Globulin [Mass ratio]1.1 {ratio}[facility] Hospitalerum or plasma anion gap determinationon 41-61-6693Svaho gap [Moles/Vol] 15.0 mmol/LFThe University of Toledo Medical Centererum or plasma total cholesterol/high density lipoprotein (HDL) cholesterol mass wilfred 11-20-2023 Cholesterol.total/Cholesterol in HDL [Mass ratio]4.2 {ratio}[facility] [place]Comment on above:3.3 - 4.4 LOW RISK4.4 - 7.1 AVERAGE RISK7.1 - 11.0 MODERATE RISK>11.0 HIGH RISKSpecific gravity Auto test strip (U) [Rel density]on 67-17-2539Mswywjtx gravity (U) [Rel density]CLEARCLEARFUniversity Hospitals Elyria Medical CenterUrine glucose measurement by test strip (mass/volume)on 00-75-3440Qejzlaa Test strip (U) [Mass/Vol]NegativeNEGATIVESelect Medical Specialty Hospital [facility] OhioUrine hemoglobin detection by automated test stripon 11-20-2023 Hemoglobin Auto test strip Ql (U)NegativeNEGSelect Medical Specialty Hospital - YoungstownUrine nitrite detection by automated test stripon 79-01-6102Tvwlqol Auto test strip Ql (U)NegativeNEGSelect Medical Specialty Hospital - YoungstownUrobilinogen Auto test strip (U) [Mass/Vol]on 96-53-0963Hcfjaoydzauw Qn (U)0.2 {Lachelle'U}/dL 0.2-1.0[facility] OhiopH Auto test strip (U)on 88-06-6901cN (U)6.0 [pH]5.0-9.0[facility] OhioCBC AUTO DIFFon 11-09-2021 BASO #0.1 103/ulNormal0.0-0.1The [facility] HospitalComment on above:Performed By: #### CBC #### [facility] [address] [address] [address] Niko Aldridgesophils/100 WBC (Bld)1.0 %Normal0.2-2.0[facility] Comment on above:Performed By: #### CBC #### [facility] [address] [place] [address] Dr. Niko Jamison #0.1 103/ulNormal0.0-0.7The [facility] HospitalComment on above: Performed By: #### CBC #### [facility] [address] [place] [address] Dr. Niko Rodriguezosinophils/100 WBC (Bld)1.2 %Normal0.9-7.0[facility] Comment on above:Performed By: #### CBC #### [facility] [address] [place] [address] Dr. Niko Rodriguezrythrocyte distribution width (RBC) [Ratio]13.9 %Pjgxcl16.0-15.0 The [facility] HospitalComment on above:Performed By: #### CBC #### [facility] [address] [place] [address] Dr. Niko SosaHematocrit (Bld) [Volume fraction]48.7 %Zwikof95.0-54.0The [facility] HospitalComment on above:Performed By: #### CBC #### [facility] [address] [place] [address] Dr. Niko SosaHemoglobin (Bld) [Mass/Vol]16.0 g/iIVbuhdi90.0-18.0[facility] HamiltonComment on above:Performed By: #### CBC #### [facility] [address] [place] [address] Dr. Niko Moscoso #0.04 10e3/ulCritically high0.00-0.03The [facility] Comment on above:Performed By: #### CBC #### [facility] [address] [place] [address] Dr. Niko Moscoso %0.7 %Critically high0.0-0.5The [facility] HospitalComment on above:Performed By: #### CBC #### [facility] [address] [place] [address] Dr. Yilan ChangLYMPH #2.1 103/ulNormal1.2-3.8The [facility] HospitalComment on above:Performed By: #### CBC #### [facility] [address] [place] [address] Dr. Niko Gamboamphocytes/100 WBC (Bld)34.9 %Eftnzq81.5-60.0The [facility] HospitalComment on above:Performed By: #### CBC #### [facility] [address] [place] [address] Dr. Niko Steven DIFF REQNONormalThe [facility] HospitalComment on above: Performed By: #### CBC #### [facility] [address] [place] [address] Dr. Niko Galvez (RBC) [Entitic mass]27.9 ypQhqfxk20.9-34.0The [facility] HospitalComment on above:Performed By: #### CBC #### [facility] [address] [place] [address] Dr. Niko Galvez (RBC) [Mass/Vol]32.9 g/vXHhhhet58.9-35.2The [facility] HospitalComment on above:Performed By: #### CBC #### [facility] [address] [place] [address] Dr. Niko Prince (RBC) [Entitic vol]84.8 nHZnarvu46.0-94.0The [facility] HospitalComment on above:Performed By: #### CBC #### [facility] [address] [place] [address] Dr. Niko Younger #0.6 103/ulNormal0.3-0.8The [facility] HospitalComment on above:Performed By: #### CBC #### [facility] [address] [place] [address] Dr. Niko Mccarthyocytes/100 WBC (Bld)10.1 %Normal1.7-12.0[facility] Comment on above:Performed By: #### CBC #### [facility] [address] [place] [address] Dr. Niko Kirby #3.2 103/ulNormal1.4-6.5The [facility] HospitalComment on above:Performed By: #### CBC #### [facility] [address] [place] [address] Dr. Niko Colladoutrophils/100 WBC (Bld)52.1 %Didtmy22.0-75.0The [facility] HospitalComment on above:Performed By: #### CBC #### [facility] [address] [place] [address] Dr. Niko SosaPlatelet mean volume (Bld) [Entitic vol]9.7 fLNormal9.5-13.5The [facility] HospitalComment on above:Performed By: #### CBC #### [facility] [address] [place] [address] Dr. Niko ThomsonT230 103/dbDxifwt338-019Gyg [facility] HospitalComment on above: Performed By: #### CBC #### [facility] [address] [place] [address] Dr. Niko SosaRBC5.74 106/ulNormal4.70-6.10The [facility] HospitalComment on above:Performed By: #### CBC #### [facility] [address] [place] [address] Dr. Niko SosaWBC6.0 103/ulNormal4.0-11.0[facility] HamiltonComment on above: Performed By: #### CBC #### [facility] [address] [place] [address] Dr. Niko SosaLIPID PROFILEon 37-83-3531KTRR-HDL RATIO NORMSUniversity Hospitals TriPoint Medical CenterComment on above:Result Comment: 3.3 - 4.4 LOW RISK 4.4 - 7.1 AVERAGE RISK 7.1 - 11.0 MODERATE RISK >11.0 HIGH RISKPerformed By: #### LIPID, CMP #### [facility] [address] [place] [address] Dr. Niko SosaCholesterol [Mass/Vol]159 mg/dLNormal<=200The [facility] Comment on above:Performed By: #### LIPID, CMP #### [facility] [address] [address] [address] Niko SosaCholesterol in HDL [Mass/Vol]38 mg/dLCritically mlj95-32PnlKettering Health HamiltonComment on above:Performed By: #### LIPID, CMP #### [facility] [address] [address] [address] Niko SosaCholesterol in LDL [Mass/Vol]109.2 mg/dLNoTwin City HospitalComment on above:Performed By: #### LIPID, CMP #### [facility] [address] [address] [address] Niko Glezesterдмитрий.total/Cholesterol in HDL [Mass ratio]4.2 {ratio} NormalKettering Health HamiltonComment on above:Performed By: #### LIPID, CMP #### [facility] [address] [address] [address] Niko Villa NORMAL> or = 60 mg/dl - LOW CARDIOVASCULAR RISK <40 mg/dl - HIGH CARDIOVASCULAR RISKPremier Health Upper Valley Medical CenterComment on above:Performed By: #### LIPID, CMP #### [facility] [address] [address] [address] Niko Mei CALC NORMALSEE BELOWPremier Health Upper Valley Medical CenterComment on above:Result Comment: <100 mg/dl OPTIMAL 100 - 129 mg/dl NEAR OR ABOVE OPTIMAL 130 - 159 mg/dl BORDERLINE HIGH 160 - 189 mg/dl HIGH >190 mg/dl VERY HIGH Performed By: #### LIPID, CMP #### [facility] [address] [address] [address] Niko SosaTriglyceride [Mass/Vol]59 mg/dLNormal<=150[facility] Comment on above:Performed By: #### LIPID, CMP #### [facility] [address] [address] [address] Niko SosaVLDL CALC11.8 mg/dLNoTwin City HospitalComment on above: Performed By: #### LIPID, CMP #### [facility] [address] [address] [address] Niko Wood 14(COMP METB)on 85-07-3516Kxcvjky [Mass/Vol]3.8 g/dLNormal 3.4-5.0The [facility] HospitalComment on above:Performed By: #### LIPID, CMP #### [facility] [address] [address] [address] Niko SosaAlbumin/Globulin [Mass ratio]1.1 {ratio}NormalThe [facility] HospitalComment on above:Performed By: #### LIPID, CMP #### [facility] [address] [address] [address] Niko Hernandez [Catalytic activity/Vol]70 U/DReplhb84-739Upg [facility] HospitalComment on above:Performed By: #### LIPID, CMP #### [facility] [address] [place] [address] Dr. Niko Cortes [Catalytic activity/Vol]54 U/XMvsatk60-43Fxg [facility] HospitalComment on above:Performed By: #### LIPID, CMP #### [facility] [address] [address] [address] Niko Estrada gap [Moles/Vol]9.0 mmol/LNormalThe [facility] HospitalComment on above:Performed By: #### LIPID, CMP #### [facility] [address] [address] [address] Niko Luque [Catalytic activity/Vol]20 U/RTezhte22-14Ahc [facility] HospitalComment on above:Performed By: #### LIPID, CMP #### [facility] [address] [address] [address] Niko SosaBilirubin [Mass/Vol]0.9 mg/dLNormal0.2-1.3The [facility] Comment on above:Performed By: #### LIPID, CMP #### [facility] [address] [address] [address] Niko SosaCalcium [Mass/Vol]8.8 mg/dLNormal8.5-10.1The [facility] Comment on above:Performed By: #### LIPID, CMP #### [facility] [address] [address] [address] Niko SosaChloride [Moles/Vol]104 mmol/YIeepfx29-918Rsl [facility] Comment on above:Performed By: #### LIPID, CMP #### [facility] [address] [address] [address] Niko SosaCO2 [Moles/Vol]31.6 mmol/LCritically high22.0-30.0The [facility] HospitalComment on above:Performed By: #### LIPID, CMP #### [facility] [address] [address] [address] Niko SosaCreatinine [Mass/Vol]1.01 mg/dLNormal0.66-1.25The [facility] HospitalComment on above:Performed By: #### LIPID, CMP #### [facility] [address] [address] [address] Niko RodriguezGFR-AF ST LUCIAN>60Normal>=60The [facility] HospitalComment on above:Performed By: #### LIPID, CMP #### [facility] [address] [address] [address] Niko RodriguezGFR-NON AF ST LUCIAN>60Normal>=60The [facility] HospitalComment on above:Performed By: #### LIPID, CMP #### [facility] [address] [address] [address] Niko SosaGlobulin (S) [Mass/Vol]3.5 g/dLNormalThe [facility] HospitalComment on above:Performed By: #### LIPID, CMP #### [facility] [address] [address] [address] Niko SosaGlucose [Mass/Vol]134 mg/dLCritically xuyr37-509Anz [facility] HospitalComment on above:Performed By: #### LIPID, CMP #### [facility] [address] [address] [address] Niko SosaPotassium [Moles/Vol]4.6 mmol/LNormal3.4-5.0The [facility] Comment on above:Performed By: #### LIPID, CMP #### [facility] [address] [address] [address] Niko SosaProtein [Mass/Vol]7.3 g/dLNormal6.1-8.2[facility] Comment on above:Performed By: #### LIPID, CMP #### [facility] [address] [address] [address] Niko SosaSodium [Moles/Vol]140 mmol/DVirprg103-926UrgKettering Health Hamilton Comment on above:Performed By: #### LIPID, CMP #### [facility] [address] [address] [address] Niko SosaUrea nitrogen [Mass/Vol]22.0 mg/dLCritically high7.0-18.0[facility] HamiltonComment on above:Performed By: #### LIPID, CMP #### [facility] [address] [address] [address] Niko Alejandra nitrogen/Creatinine [Mass ratio]21.8 mg/mgNormalThe [facility] HospitalComment on above:Performed By: #### LIPID, CMP #### [facility] [address] [address] [address] Niko Sosa Vital Signs Date TimeVital SignValuePerforming MschvcdwxQyzpykvh58-83-0010 14:24-0400Body xliwwd138.88 cmBenjamin Ball DO Work Phone: [facility] [place]08-29-2025 14:24-0400 Body mass index (BMI) [Ratio]33.5 kg/s3Eejmrvfx Ball DO Work Phone: [phone] [place]08-29-2025 14:24-0400 Body zqakxf046.03 kgBenjamin Ball DO Work Phone: [phone] [place]08-29-2025 14:24-0400 Diastolic blood qaexpsxk86 mm[Hg]Keaton Ball DO Work Phone: [phone] [place]08-29-2025 14:24-0400 Heart rate57 /minBenjamin Ball DO Work Phone: [facility] [place]08-29-2025 14:24-0400 Respiratory rate12 /minBenjamin Ball DO Work Phone: [facility]08-29-2025 14:24-0400 Systolic blood ekxsfpzr425 mm[Hg]Keaton Ball DO Work Phone: [facility] [place]06-14-2024 13:21-0400 Blood Pressure LocationAurora Orzech [facility]06-14-2024 13:21-0400Diastolic blood mm[Hg]Nohelia Orzech [facility]06-14-2024 13:21-0400Heart rate62 /minAurora Orzech [facility]06-14-2024 13:21-0400Respiratory rate19 /minAurora Orzech [facility]06-14-2024 13:21-0400Systolic blood haphkwjj371 mm[Hg]Nohelia Orzech [facility]05-22-2024 11:03-0400Body xxkrgu339.88 cmSelect [facility] [place]05-22-2024 11:03-0400Body mass index (BMI) [Ratio]34.3 kg/x5IskquxdclSelect Medical Specialty [facility] [place]05-22-2024 11:03-0400Body .92 kgSelect Medical Specialty [facility] [place]05-22-2024 11:03-0400Diastolic blood tkpofjep11 mm[Hg] [facility]05-22-2024 11:03-0400Heart rate71 /[facility]05-22-2024 11:03-0400Respiratory rate12 /[facility]05-22-2024 11:03-0400Systolic blood cidegtla197 mm[Hg] [facility]05-02-2024 08:41-0400Body irvynm155.88 cm [facility]05-02-2024 08:41-0400Body mass index (BMI) [Ratio]35.1 kg/p9VjbwvfilcSelect Medical [facility]ty [facility] [place]05-02-2024 08:41-0400Body birepj791.53 kgSelect Medical [facility]ty [facility] [place]05-02-2024 08:41-0400Diastolic blood omrpostq49 mm[Hg][facility]05-02-2024 08:41-0400 Heart rate65 /[facility]05-02-2024 08:41-0400 Respiratory rate12 /[facility]05-02-2024 08:41-0400 Systolic blood mm[Hg][facility]04-03-2024 11:20-0400Body qutcsl336.88 cmSelect [facility]ty [facility] [place]04-03-2024 11:20-0400Body mass index (BMI) [Ratio]35 kg/g3NaqevcupwSelect Medical [facility]ty [facility] [place] 11-12-2023 11:20-0400Body ketcip614.19 kgSelect [facility]ty [facility] [place] 11-12-2023 11:20-0400Diastolic blood hchuvkqs87 mm[Hg][facility]04-03-2024 11:20-0400Heart rate73 /[facility] 11-12-2023 11:20-0400Respiratory rate12 /[facility] 11-12-2023 11:20-0400Systolic blood isdzjhqj314 mm[Hg][facility] [place]03-29-2023 16:30-0400Body corquq235.88 cmBenCauwill Technologies Other [employer] Other 03-29-2023 16:30-0400Body mass index (BMI) [Ratio]36.4 kg/l5Tcgrulxk Ball Other [employer] Other 03-29-2023 16:30-0400Body vmbluc251.75 kgBentonja Rice Other [employer] Other 03-29-2023 16:30-0400Diastolic blood dkuowpjl77 mm[Hg] Keaton Rice Other [facility] [employer] Other 03-29-2023 16:30-0400Respiratory rate12 /minBentonja Ball Other [facility] [employer] Other 03-29-2023 16:30-0400Systolic blood emmlgdtx677 mm[Hg] Keaton Rice Other [facility] [employer] Other Encounters Encounter DateEncounter TypeCare ProviderFacilityStart: 04-14-2025 End: 52-62-9780tpsrrilnluNmdeygfm Ball DO Work Phone: [facility] Work Phone: Start: 04-14-2025 End: 18-90-6271Tnuryma encounter procedureBenjachanell Rice DO-[facility] Work Phone: Start: 12-00-9364Gci-patient / Non-visitBenjamin Ball DO-[employer] Work Phone: Start: 04-12-2025 End: 21-64-4900rxmmmtjfiaTvvmfqra Ball DO Work Phone: [facility] Work Phone: Start: 04-12-2025 End: 79-91-9877Janjppi encounter procedureBenjamin Ball DO-[facility] Work Phone: Start: 04-08-2025 End: 79-27-7480qszffzvzmoOdofskji Ball DO Work Phone: [facility] Work Phone: Start: 04-08-2025 End: 54-84-5129Ptvddhb encounter procedureBeCohen [facility] Work Phone: Start: 04-08-2025 End: 31-62-7329Vvzfyzo encounter statusBetonja [facility] Hospitaltart: 03-23-2024 End: 80-46-2101sesadpdhqjGztzskmlfHenry County Hospital Work Phone: Start: 03-23-2024 End: 28-53-3677Bxilbht encounter procedureFirhardys [facility]ician [facility] Work Phone: Start: 01-23-2024 End: 51-84-3560erjolkfngwDyryef X OrzechFacility:[facility] HospitalkStart: 01-23-2024 End: 40-80-1684Lgrjwsk encounter procedureAurora X Orzech [facility] Start: 12-76-9295rsykyubmfsOjxetl OrzechFacility:EU [place]Start: 18-93-8967Vzg-patient / Non-visitFirvcu medical center Physician [facility] [employer] Work Phone: Start: 12-31-2023 End: 55-54-7574ltxydazhjfEtuqiumheHenry County Hospital Work Phone: Start: 12-31-2023 End: 70-99-1333Ayvlfcz encounter procedureFirelands [facility]ician [facility] Work Phone: Start: 12-11-2023 End: 25-82-5491Jibzbny encounter procedureFirhardys Physician Group-[facility] Work Phone: Start: 12-02-2023 End: 22-24-8747ysnuowxtzaIekwfeimeHenry County Hospital Work Phone: Start: 12-02-2023 End: 18-73-7945Wiayteu encounter procedureFirhardys Physician Group-[facility] Work Phone: Start: 37-02-7055Mvj-patient / Non-visitE[facility]-[employer] Work Phone: Start: 11-12-2023 End: 77-69-0615qckrbeturcMocpvtmwzHenry County Hospital Work Phone: Start: 11-12-2023 End: 97-71-7524Vpxgrkofd for general adult medical examination without abnormal findingsCleveland Clinic Lutheran Hospitaltart: 11-12-2023 End: 29-28-6914Hlnmvqt encounter procedureErlanger [facility] Work Phone: Start: 03-21-2023 End: 92-11-4858glcoacljhqNvclcwhx Ball Other [employer] Other Start: 63-24-8363Jzftdezbk encounterBeprafultonja [facility] ClinicStart: 11-06-2022 End: 00-29-9174qdqvqdhjvbKitqpmwc Ball Other [employer] Other Start: 07-56-0909Wionga outpatient visit 15 minutes [facility]aton [facility] ClinicStart: 92-82-9054Bjmcselvg for general adult medical examination without abnormal findingsDR KEATON RICEHarrison Community Hospitaltart: 11-09-2021 End: 56-08-6827cwfesqbldkWV KEATON RICEFacility:R2Jnckf: 11-09-2021 End: 46-48-5020Tqxanrmfi for general adult medical examination without abnormal findingsDR KEATON RICEFacility:D2Ytmeg: 61-99-5310Rlkye health examination Keaton Rice Other [employer] Other Procedures DateProcedureProcedure DetailPerforming ClinicianDepression screeningKeaton Rice Other Plan of Treatment DateCare ActivityDetailAuthorBacteria identified in Urine by CultureSelect Medical Specialty [facility] OhioComprehensive metabolic 2000 panel - Serum or Plasma [facility] OhioComprehensive metabolic 1999 panel - Serum or PlasmaSelect Medical Specialty Hospital - Southeast OhioUS Heart TransthoracicFresno Heart & Surgical [facility] Immunizations Immunization DateImmunizationNotesCare [id number] and diphtheria toxoids, adsorbed, preservative free, for adult use (5 Lf of tetanus toxoid and 2 Lf of diphtheria toxoid)Keaton Rice DO Work Phone: [facility]07-15-2014diphtheria, tetanus toxoids and acellular pertussis vaccine, unspecified formulation Keaton Rice Other [facility] Payers DatePayer CategoryPayerPolicy [id number] [id number] Social History DateTypeDetailFacilitySex [facility]igned [facility]: [facility]41[facility]wp [facility] 01-23-2024 End: [id number] smoking statusNever smoked tobacco (finding)[facility] Functional Status IcvsYnzirghlghWqnalbMfwfuxrr01-19-9004Aopflvglag StatusN/AExec[facility] 11-06-2022 to 04-08-2025 Note Date & [id number] Evaluation note* Diagnosis Onset Date Resolution Status Admit Date ELIF (generalized anxiety disorder) acuteAugust 2024 2:12pmGERD (gastroesophageal reflux disease)acuteAugust 2024 2:12pmIFG (impaired fasting glucose)acuteAugust 2024 2:12pm ObesityacuteAugust 2024 2:12pmPalpitationsacuteAugust 2024 2:12pm Paroxysmal atrial fibrillationacuteAugust 2024 2:12pmWellness examination noneactiveAugust 2024 2:12pm [facility] Work Phone: 1(513) 322-601008-13-2024 Chief complaint+Reason for visit Narrative * Chief Complaint referral for urologi st sinus infection, covid - [phone] for VisitAcute prostatitis IFG (impaired fasting glucose) Obesity Prostatitis Acute bronchitis due to other specified organisms IFG (impaired fasting glucose) [facility] Work Phone: [phone]) 682-222506-14-2024 Hospital Discharge instructions Patient Education 01/23/2024 14:38:28 [...] Follow these instructions at home: Medicines Take zsfx-piz-rahjwsv and prescription medicines only as told by [...] important. Where to find more information [employer] [place] of Diabetes and Digestive and Kidney Diseases: [...] depends on the type of prostatitis. Take krdk-mja-zfmkjvb and prescription medicines only as told by [...] provider. Document Revised: 09/01/2020 Document Reviewed: 09/01/2020 MXP4 Patient Education 2022 [employer]. 01/23/2024 14:38:28 Benign Prostatic Hyperplasia Benign Prostatic [...] urethra. Follow these instructions at home: Take zagr-yqe-mgmvsbd and prescription medicines only as told by [...] provider. Document Revised: 02/13/2022 Document Reviewed: 02/13/2022 MXP4 Patient Education 2022 [employer]. Follow Up Care 01/09/2024 10:22:53 With:GAYLE Shaw APRN, CONCHA Cabral, URL Address: When: Unknown Comments:malika [facility] 06-14-[address] Rice referral HPI Staff 38 year old male referred by Dr. Rice for prostatitis. In Dr. Herbert notes states [...] with voice recognition artificial intelligence software, specifically 2CRisk, MIOX and or Novaliq. Substitutions may have occurred due to the [...] pain on STAR. Assessment/Plan Referred by Dr Rice. Completed review of external notes, results, imaging. [...] office with any future prostatitis symptoms Ordered: 99815 Measure Post Void residual urine and/or bladder capacity by US- non-imaging Urnls Dip Stick Auto w/o Microscopy POC 38078 3. BPH (benign prostatic hyperplasia) (N40.0: Benign [...] bladder health and compliance. We discussed alpha- bautista medications to help with urinary symptoms as well as further evaluation of bladder and urinary with cystoscopy. Patient states that he does no (more content not included)...[facility] CenterComment on above:Result Comment: Electronically Signed By: GAYLE Shaw APRN, [place] [facility]\.aracelis\Date and Time Signed: 01/23/24 15:11 [id number] Evaluation note* Encounter Date Diagnosis Assessment Notes Treatment Notes Treatment Clinical Notes Mar, Tinea versicolor (ICD-10 - B36.0 ) [facility] Other 03-29-2023 Evaluation note* Encounter Date Diagnosis Assessment Notes Treatment Notes Treatment Clinical Notes Oct, Irritant contact dermatitis due to detergent (ICD-10 - L24.0) Avoid harsh chemicals or soaps. Cool compresses [facility] Other Chief complaint+Reason for visit Narrative* Chief Complaint Wellness continued congestion diabetes medication referral for urologistReason for VisitGAD (generalized anxiety disorder) IFG (impaired fasting glucose) Obesity Paroxysmal atrial fibrillation Wellness examination Acute prostatitis IFG (impaired fasting glucose) Obesity Prostatitis Acute prostatitis IFG (impaired fasting glucose) Obesity Prostatitis [facility] Work Phone: Evaluation + Plan note No data available for this section [facility] Evaluation note* Diagnosis Onset Date Resolution Status ELIF (generalized anxiety disorder) acuteIFG (impaired fasting glucose)acuteObesityacuteParoxysmal atrial fibrillationacuteWellness examinationnoneactive [facility] Work Phone: Evaluation note* Diagnosis Onset Date Resolution Status ELIF (generalized anxiety disorder) acuteIFG (impaired fasting glucose)acuteObesityacuteParoxysmal atrial fibrillationacuteWellness examinationnoneactiveAcute prostatitisacuteIFG (impaired fasting glucose)acuteObesityacuteProstatitisnoneactiveAcute prostatitisacuteIFG (impaired fasting glucose)acuteObesityacuteProstatitis noneactive [facility] Work Phone: Evaluation note* Diagnosis Onset Date Resolution Status Acute prostatitis acuteIFG (impaired fasting glucose)acuteObesityacuteProstatitisnoneactiveAcute bronchitis due to other specified organismsacuteIFG (impaired fasting glucose) acute [facility] Work Phone: Evaluation note* Diagnosis Onset Date Resolution Status Admit Date ELIF (generalized anxiety disorder) acuteAugust 2024 2:12pmIFG (impaired fasting glucose)acuteAugust 2024 2:12pmObesityacuteAugust 2024 2:12pmParoxysmal atrial fibrillation acuteAugust 2024 2:12pmWellness examinationnoneactiveAugust 2024 2:12pm [facility] Work Phone: History general Narrative - Reported* Type Description Date Medical History ELIF (generalized anxiety disorde r) Medical HistoryGastro-esophageal reflux disease with esophagitis, without bleedingMedical HistoryIFG (impaired fasting glucose)Medical HistoryParoxysmal atrial fibrillationMedical HistoryTinea versicolorMedical HistoryIBS (irritable bowel syndrome)Medical HistoryMorbid obesity [employer] Other History general Narrative - Reported* Type Description Date Medical History ELIF (generalized anxiety disorde r) Medical HistoryGastro-esophageal reflux disease with esophagitis, without bleedingMedical HistoryIFG (impaired fasting glucose)Medical HistoryParoxysmal atrial fibrillationMedical HistoryTinea versicolorMedical HistoryIBS (irritable bowel syndrome)Medical HistoryMorbid obesitySurgical HistoryProblem Title : Non- Contributory Past Surgical History, Problem Status : Active,Surgical History Problem Title : past surgical history reviewed, Problem Description : past surgical history reviewed, Problem Comment : reviewed - no changes required, Problem Status : Inactive,Surgical HistoryProblem Title : past surgical history reviewed, Problem Description : past surgical history reviewed, Problem Comment : reviewed - no changes required, Problem Status : Resolved, [facility] Other Progress note No data available for this section [facility] Reason for referral (narrative)No reason for referral information availableMer[facility] Work Phone: Summary Purpose Family History Relationship Condition Age at Onset Recorded Date/T kylee father Diabetes mellitus Unknown Not SpecifiedDiabetes mellitusUnknown Relationship Condition Age at Onset Recorded Date/T kylee father Diabetes mellitus Unknown motherDiabetes mellitusUnknown Advance Directives Advance Directive Response Recorded Date/ Time Advance Directives No November 11 11:13am Advance Directive Response Recorded Date/ Time Advance Directives No July 9:53am Chief Complaint and Reason for Visit Chief Complaint Wellness Reason for Visit ELIF (generalized anx iety disorder) IFG (impaired fasting glucose) Obesity Paroxysmal atrial fibrillation Wellness examination Chief Complaint Wellness continued congestionReason for VisitGAD (generalized anxiety disorder) IFG (impaired fasting glucose) [...] and content) DATE CREATED AUTHOR 11/15/2021 [facility] DATE CREATED AUTHOR 'S ORGANIZ ATION 01/28/2024 [facility] REASON FOR VISIT (unrecogniz ed section and content) RashNo Information Care Teams (unrecognized sec tion and content) Team Status: Active Member Role Status Bianca Rice DO Primary Care Provider Active Team Status: Inactive Member Role Status Bianca Rice DO Primary Care Provide r, Attending Provider Active Start: November 12, 2023 End: November 12, 2023 Team Status: Active Member Role Status Bianca Rice DO Primary Care Provide r, Attending Provider Active Start: November 20, 2023 Team Status: Inactive Member Role Status Dates Keaton Rice DO Primary Care Provider Active Start: December 02, 2023 End: December 02, 2023Jenelle Mcdaniel APRN [employer]ER SERVICER-CAttending ProviderActive Start: December 02, 2023 End: December 02, 2023 Team Status: Inactive Member Role Status Bianca Rice DO Primary Care Provide r, Attending Provider Active Start: December 11, 2023 End: December 11, 2023 Team Status: Inactive Member Role Status Bianca Rice DO Primary Care Provide r, Attending Provider Active Start: December 31, 2023 End: December 31, 2023 Team Status: Active Member Role Status Bianca Rice DO Primary Care Provide r, Attending Provider Active Start: January 03, 2024 Team Status: Inactive Member Role Status Dates Keaton Rice DO Primary Care Provide r, Attending Provider Active Start: March 23, 2024 End: March 23, 2024 Team Status: Inactive Member Role Status Dates Keaton Rice DO Primary Care Provider Active Start: April 08, 2025 End: April 08lilo Rice , DOAttending ProviderActiveStart: April 08, 2025 End: April 08, 2025 Team Status: Inactive Member Role Status Dates Keaton Rice DO Primary Care Provider Active Start: April 12, 2025 End: April 12lilo Rice , DOAttending ProviderActiveStart: April 12, 2025 End: April 12, 2025 Team Status: Active Member Role Status Dates Keaton Rice DO Primary Care Provider Active Start: April 13, 2025 Keaton Rice DOAttending ProviderActiveStart: April 13, 2025 Team Status: Inactive Member Role Status Dates Keaton Rice DO Primary Care Provider Active Start: April 14, 2025 End: April 14lilo Rice , DOAttending ProviderActiveStart: April 14, 2025 End: April [...] BE BASED ON THE PRIMARY CLINICAL RECORDS. [facility] [employer] [facility]. provides no warranty or guarantee of the accuracy or completeness of information in this document.
[2025-06-14 10:30] LABS: Hematocrit 47.8 % (42.0-54.0); Hemoglobin 15.8 g/dL (14.0-18.0); Immature Granulocytes Abs Auto 0.02 10^3/uL (0.00-0.03); Immature Granulocytes Pct Auto 0.3 % (0.0-0.5); Lymphocytes Absolute Auto 0.9 10^3/uL (1.2-3.8); Mean Corpuscular HGB Conc 33.1 g/dL (29.9-35.2); Mean Corpuscular Hemoglobin 28.1 pg (25.9-34.0); Mean Corpuscular Volume 84.9 fL (80.0-94.0); Platelet Count 168 10^3/uL (150-450); Red Blood Count 5.63 10^6/uL (4.70-6.10); White Blood Count 7.0 10^3/uL (4.0-11.0)
[2025-06-14 10:54] LABS: Anion Gap 14.5; Blood Urea Nitrogen 22.0 mg/dL (7.0-18.0); Calcium 9.0 mg/dL (8.5-10.1); Carbon Dioxide 26.8 mmol/L (21.0-32.0); Chloride 104 mmol/L (98-107); Estimated GFR (African America >60 (>=60 mL/min/1.73m^2); Estimated GFR (Non-African Ame >60 (>=60 mL/min/1.73m^2); Glucose 109 mg/dL (74-106); Potassium 4.3 mmol/L (3.5-5.1); Sodium 141 mmol/L (136-145)
== END 2025-06-14 09:59 | disposition home or self-care (01) ==
PROVIDERS: PCP Internal Medicine; Visit Provider Internal Medicine
DX: R19.7 Diarrhea, unspecified (principal)
CPT/HCPCS: 36415; 80048; 85025; 87045; 87046; 87427